=== PATIENT | male | born 1960 | race Caucasian/White ===

== ENCOUNTER 2018-11-21 18:28 | Outpatient (REF) | payer BC, SELFPAY ==
[2018-11-21 22:19] LABS: ALT 38 U/L (12-78); AST 27 U/L (15-37); Alkaline Phosphatase 62 U/L (46-116); Anion Gap 12.1 mmol/L (3-11); BUN 24 mg/dL (7-18); Bilirubin, Total 0.4 mg/dL (0.2-1.0); CO2 23.9 mmol/L (21.0-32.0); CREATININE 1.41 mg/dL (0.70-1.30); Calcium 9.1 mg/dL (8.5-10.1); Chloride 106 mmol/L (98-107); Cholesterol 230 mg/dL (50-200); Estimated GFR 51.45 (mL/min/1.73m2); Glucose 114 mg/dL (70-100); HDL Cholesterol 33 mg/dL (40-60); LDL CHOLESTEROL 120 mg/dL (<100); Magnesium 1.3 mg/dL (1.8-2.4); Potassium 3.6 mmol/L (3.5-5.1); Sodium 142 mmol/L (136-145); Total Protein 7.2 g/dL (6.4-8.2); Triglyceride 469 mg/dL (30-150)
[2018-11-21 22:33] LABS: Uric Acid 5.8 mg/dL (3.5-7.2)
== END 2018-11-21 18:48 ==
LOC: NCHCN 18:28
PROVIDERS: PCP Specialist/Technologist Athletic Trainer; Visit Provider Specialist/Technologist Athletic Trainer
DX: I10 Essential (primary) hypertension (principal); E11.9 Type 2 diabetes mellitus without complications; E78.2 Mixed hyperlipidemia; R94.5 Abnormal results of liver function studies; M10.9 Gout, unspecified
CPT/HCPCS: 80053; 80061; 83721; 83735; 84550

== ENCOUNTER 2018-12-02 04:39 | Inpatient (IN) | payer BC, SELFPAY ==
[2018-12-02] VITALS (22 sets, daily range): BP systolic 105–139; BP diastolic 65–90; PULSE 77–120; RESP 16–18; TEMP 36.6–38.5; O2SAT 92–98
[2018-12-02] MEDS: HYDROmorphone 2 MG/ML VIAL 0.5 MG IVP ×3 (05:25→08:35)
[2018-12-02] MEDS: Lactated Ringers 1,000 ML 1000 ML IV (05:25)
[2018-12-02] MEDS: Ondansetron 4 MG/2 ML VIAL IVP (05:26)
[2018-12-02] MEDS: Normal Saline Flush 10 ML SYR IVP ×4 (05:27→19:57)
[2018-12-02 05:28] LABS: Lactate 1.7 mmol/L (0.6-1.4)
[2018-12-02 05:30] LABS: Abs Immature Grans 0.04 k/cumm (0.0-0.09); Absolute Basophil Count 0.02 k/cumm (0.0-0.2); Absolute Lymphocyte Count 0.45 k/cumm (1.2-3.4); Absolute Monocyte Count 1.28 k/cumm (0.11-0.7); Absolute Neutrophil Count 15.39 k/cumm (1.2-6.7); Basophils % 0.1; Eosinophils % 0.6; HCT 44.6 % (40.0-50.0); HGB 15.4 g/dL (13.5-17.5); Immature Grans % 0.2; Lymphocytes % 2.6; Mean Corp. HGB Concentration 34.5 g/dL (32.0-36.0); Mean Corpuscular Hemoglobin 31.6 pg (27.0-33.0); Mean Corpuscular Volume 91.4 fL (80-95); Mean Platelet Volume 9.7 fL (8.0-11.0); Monocytes % 7.4; Neutrophils % 89.1; Platelet Count 170 x1000/uL (130-400); RBC 4.88 m/cumm (4.50-6.00); RBC Distribution Width 14.3 % (11.8-14.1); White Blood Cell Count 17.27 k/cumm (4.4-10.8)
[2018-12-02 05:31] LABS: Bilirubin Negative (Negative); Blood Negative (Negative); Clarity Clear; Glucose Negative (Negative); Ketones Negative (Negative); Leukocyte Esterase Negative (Negative); Nitrite Negative (Negative); Specific Gravity 1.015 (1.005-1.025); Urobilinogen 0.2 EU/dL (Up TO 0.2); pH 6.5 (5-8)
--- NOTE | 2018-12-02 05:33 | W.ED.GENAD ---
Discharge Plan Disposition Patient Disposition: [facility] INPATIENT Condition: Stable Discharge Details Chief Complaint: Abd Prob Clinical Impression: Abdominal abscess, History of resection of small bowel Reason For Visit: ENTERITIS Admit Date/Time: 12/02/18 10:11 Admit Provider: Reynaldo Christine Attending Provider: Reynaldo Christine Primary Care Provider: Domingo Ngo ED Provider: Yesenia Allen Discharge Data Discharge Date/Time-TO BE ENTERED AT DEPARTURE: 12/02/18 10:55 Medical Decision Making <Peter Carney MD - Last Filed: 12/03/18 00:17> Patient presenting with onset of abdominal pain last night. Now has diffuse tenderness with rebound. He is soft. Point of most tenderness is supraumbilical. Maybe the possibility of a hernia there but there is definitely no firm incarcerated mass. Will place IV and give fluids, pain meds, antiemetics. Will obtain laboratory studies. Will get CT scan of the abdomen pelvis. Laboratory studies significant for an elevated white count 17. Kidney function is on the higher side of his baseline. Creatinine is 1.6. Lactic acid is 1.7. Urinalysis is negative. Dilaudid has helped with his pain. Patient remains hemodynamically stable. CT scan is still not read. I'm a little concerned for free air. I did speak to surgery, Dr. Christine, at 7:45 am to make her aware of patient and that I felt patient had a surgical abdomen. She asked to be called back with the radiology read of the CT. Patient will given another dose of Dilaudid and a second bag of fluid will be hung. Patient will be signed out to Dr. Allen. Lab Data Lab results reviewed: Yes I reviewed the patient's lab results. HPI <Peter Carney MD - Last Filed: 12/03/18 00:17> General Mode of arrival: ambulatory. Date/Time Provider Initiated Documentation: 12/02/18 04:43. Limitations to Documentation: no limitations. Information obtained by: patient and old records reviewed. HPI Narrative: Patient presents to ED with worsening abdominal pain since dinner last night. Patient reports that it started out as sharp, crampy intermittent pain. It is now just severe constant pain that seems to be periumbilical in nature and radiates out especially down into the right lower quadrant. He has no testicular pain or urinary symptoms. He has no back pain. He does have a prior history of incarcerated hernia requiring bowel resection last spring. He denies any nausea/vomiting. He had a bowel movement this morning prior to coming in. He has been hot and cold but does not know whether he had fever or not. He denies chest pain or shortness of breath. Related Data Home Medications Medication Instructions Recorded Confirmed allopurinol 300 mg PO DAILY 07/25/14 12/02/18 aspirin [Children's Aspirin] 81 mg PO DAILY 07/25/14 12/02/18 ibuprofen 800 mg PO TID PRN 07/25/14 12/02/18 lisinopril 20 mg PO DAILY 07/25/14 12/02/18 metoprolol tartrate 50 mg PO BID 07/25/14 12/02/18 rosuvastatin [Crestor] 40 mg PO DAILY 07/25/14 12/02/18 gemfibrozil 600 mg PO BID 09/09/15 12/02/18 chlorthalidone 25 mg PO DAILY tab-cap 10/16/15 12/02/18 acetaminophen [Tylenol] 650 mg PO Q6H PRN PRN #30 tab 02/28/18 12/02/18 Previous Rx's Medication Instructions Recorded acetaminophen [Tylenol] 650 mg PO Q6H PRN PRN #30 tab 02/28/18 Allergies Allergy/AdvReac Type Severity Reaction Status Date / Time No Known Allergies Allergy Unverified 12/02/18 04:46 General Stated Complaint: Abd Prob YEHUDA: 3 Review of Systems <Peter Carney MD - Last Filed: 12/03/18 00:17> Constitutional Denies chills, Denies fever(s), Denies headache(s) and Denies weakness Eyes Denies eye discharge and Denies eye pain ENT Denies headache(s), Reports nasal congestion and Denies neck pain Cardiovascular Denies chest pain, Denies diaphoresis, Denies syncope and Denies dyspnea Respiratory Denies cough and Denies dyspnea Gastrointestinal Reports abdominal pain, Denies diarrhea, Denies nausea and Denies vomiting Genitourinary Denies dysuria, Denies flank pain and Denies testicular pain Musculoskeletal Denies back pain, Denies neck pain and Denies numbness Integumentary/Breasts Denies rash Neurologic Denies syncope, Denies headache(s), Denies focal weakness, Denies numbness and Denies weakness PFSH <Peter Carney MD - Last Filed: 12/03/18 00:17> Medical History Hypercholesterolemia (Acute) Diabetes (Chronic) HTN (hypertension) (Chronic) CAD (coronary artery disease) (Chronic) Gout (Chronic) Surgical History Fx tibia/fibula shaft-op (Inactive) S/P CABG (coronary artery bypass graft) (Inactive) S/P hernia repair (Inactive) incarcerated ventral hernia with small bowel resection (Chronic 02/21/18) Social History Smoking and Tabacco status: Never Exam <Peter Carney MD - Last Filed: 12/03/18 00:17> Const General: cooperative and no acute distress Orientation: alert and oriented x3 HENMT Head: normocephalic and atraumatic Mouth: moist mucous membranes Eyes Sclera: sclerae normal Neck Neck: trachea midline and supple Resp Effort & Inspection: normal respiratory effort Auscultation: clear to auscultation bilaterally Cardio Rate: regular rate Rhythm: regular rhythm Heart Sounds: S1 normal and S2 normal GI Inspection: normal to inspection, no edema, non-distended and scar Palpation: soft, not firm, guarding and tender (diffusely tender witih rebound) Auscultation: normal bowel sounds Male General Exam: Yes normal external exam and No hernia Skin General skin exam: no erythema Rashes: no rashes Neuro General: alert, oriented x3, no focal motor deficits and CN's II-XI intact bilaterally Extrem General: no clubbing, cyanosis or edema Course <Peter Carney MD - Last Filed: 12/03/18 00:17> Vital Signs Temperature 98.4 F 12/02/18 04:42 Pulse 120 H 12/02/18 04:42 Respiratory Rate 16 12/02/18 04:42 Blood Pressure 112/65 12/02/18 04:42 Pulse Oximetry 97 12/02/18 04:42 Temperature 98.4 F 12/02/18 04:42 Temperature Source Skin 12/02/18 04:42 Pulse 120 H 12/02/18 04:42 Respiratory Rate 16 12/02/18 04:42 Respiratory Effort Non-Labored 12/02/18 04:46 Blood Pressure 112/65 12/02/18 04:42 Blood Pressure Position Sitting 12/02/18 04:42 Pulse Oximetry 97 12/02/18 04:42 End Tidal Co2 10 12/02/18 04:42 Pain Level 10 12/02/18 05:25 Lab/Test Results Lab/Test Results: Laboratory Tests Range/Units 12/02/18 12/02/18 12/02/18 04:55 05:20 05:20 WBC (4.4-10.8) k/cumm 17.27 H RBC (4.50-6.00) m/cumm 4.88 Hgb (13.5-17.5) g/dL 15.4 Hct (40.0-50.0) % 44.6 MCV (80-95) fL 91.4 MCH (27.0-33.0) pg 31.6 MCHC (32.0-36.0) g/dL 34.5 RDW (11.8-14.1) % 14.3 H Plt Count (130-400) x1000/uL 170 MPV (8.0-11.0) fL 9.7 Immature Gran % 0.2 Neutrophils % 89.1 Lymphocytes % 2.6 Monocytes % 7.4 Eosinophils % 0.6 Basophils % 0.1 Absolute Neutrophils (1.2-6.7) k/cumm 15.39 H Absolute Lymphocytes (1.2-3.4) k/cumm 0.45 L Absolute Monocytes (0.11-0.7) k/cumm 1.28 H Absolute Eosinophils (0.0-0.7) k/cumm 0.10 Absolute Basophils (0.0-0.2) k/cumm 0.02 Lactate (0.6-1.4) mmol/L 1.7 H Urine Color (Yellow) Yellow Urine Clarity Clear Urine pH (5-8) 6.5 Ur Specific [place] (1.005-1.025) 1.015 Urine Protein (Negative) mg/dL Negative Urine Ketones (Negative) mg/dL Negative Urine Blood (Negative) Negative Urine Nitrite (Negative) Negative Urine Bilirubin (Negative) Negative Urine Urobilinogen (Up TO 0.2) EU/dL 0.2 Ur Leukocyte Esterase (Negative) Negative Urine Glucose (Negative) mg/dL Negative Sign Out <Peter Carney MD - Last Filed: 12/03/18 00:17> Sign Out Data: Sign Out Comment: Signed out to Dr. Allen Last updated by Peter Carney MD at 12/02/18 08:11 Post-Handoff Eval: CT notes 2 areas concerning for abscess and a possible anastomotic leak. Dose of Zosyn ordered. Discussed with surgery seasoning sprayer and they will come to evaluate patient. She is requesting a CT with p.o. contrast for further evaluation. Patient is currently hemodynamically stable, his abdomen is soft and diffusely tender. 1010 --CT w/ PO contrast notes 2 abscesses and possible anastomotic leak but no extravasation of contrast, no new additional findings compared to CT w/ IV. Discussed with Dr. Christine - will admit pt. No plan for OR at this time.
[2018-12-02 05:43] LABS: ALT 30 U/L (12-78); AST 23 U/L (15-37); Albumin 3.8 g/dL (3.4-5.0); Alkaline Phosphatase 56 U/L (46-116); Anion Gap 11.6 mmol/L (3-11); BUN 26 mg/dL (7-18); Bilirubin, Total 0.8 mg/dL (0.2-1.0); CO2 24.4 mmol/L (21.0-32.0); CREATININE 1.58 mg/dL (0.70-1.30); Chloride 102 mmol/L (98-107); Estimated GFR 45.11 (mL/min/1.73m2); Glucose 161 mg/dL (70-100); Lipase 158 U/L (73-393); Potassium 3.5 mmol/L (3.5-5.1); Sodium 138 mmol/L (136-145); Total Protein 7.3 g/dL (6.4-8.2)
[2018-12-02 05:50] LABS: Calcium 8.8 mg/dL (8.5-10.1)
[2018-12-02] MEDS: Omnipaque 350 MG/ML 100 ML BTL IJ (06:33)
--- NOTE | 2018-12-02 06:40 | DI.CT_ITS ---
SYMPTOM/DIAGNOSIS: ACUTE ABD PAIN ABDOMEN AND PELVIC CT: CT scan of the abdomen and pelvis was performed following the uneventful administration of intravenous contrast material. Comparison is made with 02/25/18. Dependent atelectatic changes are seen in the lung bases. There is diffuse decreased attenuation of the liver consistent with hepatic steatosis. No suspicious hepatic mass is seen. The portal, superior mesenteric and splenic veins are patent. The gallbladder is negative. There is no biliary ductal dilatation. The pancreas is unremarkable. The spleen is enlarged measuring 14.4 cm. The adrenal glands show no acute abnormalities. The kidneys show normal enhancement and no evidence of a solid renal mass or obstruction. There is a left pelvic kidney present. The urinary bladder is intact. The reproductive organs are unremarkable. The abdominal aorta is of normal caliber with mild atherosclerosis. No significant abdominal or pelvic adenopathy is seen. There are post surgical changes of an anastomosis seen in the mid abdomen involving the small bowel. In the region of the anastomosis, the bowel wall appears mildly thickened and there is dilatation of the bowel, proximally there is mild bowel dilatation noted. There are a few of foci of air seen to the right of the small bowel anastomosis. This may represent air within the wall or extraluminal air. There is increased attenuation in the mesentery surrounding the inflamed anastomosis. There are also two fluid collections seen in the mesentery, the first superior to the anastomosis. It contains air and fluid and measures 2.2 by 0.8 cm. There is a second fluid collection superior and posterior to the inflamed bowel which measures 1.2 by 2.8 cm. These findings are suspicious for abscesses. The remainder of the bowel is unremarkable. The bones show no acute abnormality. IMPRESSION: 1. Bowel wall thickening and dilatation of the small bowel in the region of the anastomosis suspicious for infection or inflammation. Mild dilatation of the small bowel proximal to the anastomosis suspicious for an ileus. 2. Air and fluid collection in the adjacent mesentery suspicious for two abscesses. 3. Small foci of air seen to the right of the anastomotic small bowel. The findings could be suggestive of an anastomotic leak. 4. Incidental findings of hepatic steatosis, splenomegaly and a left pelvic kidney.
[2018-12-02] MEDS: Lactated Ringers 1,000 ML 150 ML IV (08:04)
--- NOTE | 2018-12-02 08:11 | DI.VRAD_ITS ---
EXAM: CT Abdomen and Pelvis With Contrast EXAM DATE/TIME: 12/02/2018 5:18 AM CLINICAL HISTORY: 58 years old, male; Pain; Abdominal pain; Localized; Lower; Prior surgery; Surgery date: 6+ months; Surgery type: Hernia repair, bowel resection, heart surgery TECHNIQUE: Axial computed tomography images of the abdomen and pelvis with intravenous contrast. All CT scans at this facility use at least one of these dose optimization techniques: automated exposure control; mA and/or kV adjustment per patient size (includes targeted exams where dose is matched to clinical indication); or iterative reconstruction. Coronal and sagittal reformatted images were created and reviewed. CONTRAST: Contrast Material: 100 ml of [id number]; Contrast Route: iv COMPARISON: CT ABD PELVIS WITH CONTRAST 02/25/2018 3:31 PM FINDINGS: Lower thorax: Small hiatus hernia containing fat. ABDOMEN: Liver: Fatty infiltration of the liver. Gallbladder and bile ducts: Normal. No calcified stones. No ductal dilation. Pancreas: Normal. No ductal dilation. Spleen: Stable splenomegaly measuring 15.8 cm in craniocaudad. Adrenals: Normal. No mass. Kidneys and ureters: Left kidney pelvis. No stones or hydronephrosis. Stomach and bowel: There is an enteric anastomosis in the mid pelvis. There is a focally dilated small bowel loop proximal to anastomosis with thickened wall.There are few small bubbles of air along the right lateral aspect of the inflamed loop which may be free or within the wall. There are 2 air and fluid collections in the adjacent mesentery suspicious for abscesses . These measure 2.2 x 0.8 cm and 1.2 x 2.8 cm. there is a short segment region of bowel dilatation proximal to enteric anastomosis which is likely related to ileus. Rest of the small bowel unremarkable. Unremarkable colon. Appendix: No evidence of appendicitis. PELVIS: Bladder: Unremarkable as visualized. Reproductive: Unremarkable as visualized. ABDOMEN and PELVIS: Intraperitoneal space: Bones/joints: No acute fracture. No dislocation. Soft tissues: Ventral hernia repair seen at level of the umbilicus. Vasculature: Atherosclerotic disease. No aneurysm or dissection. Lymph nodes: Normal. No enlarged lymph nodes. IMPRESSION: Diffuse inflammation in the mid small bowel mesentery at the site of enteric anastomosis with 2 new air and fluid containing collection in the mesentery suspicious for abscess use. There also a few bubbles of air along the right lateral aspect of the inflamed bowel loop which likely external to the bowel but could be within the wall. Findings are most consistent with an anastomotic leak although ischemia with localized perforation cannot be fully excluded. No evidence of bowel obstruction. Left pelvic kidney. Stable splenomegaly. Fatty liver. Findings were discussed with Dr. Carney at 8:10 am EST. Dictated and Authenticated by: Jewels Mcneil MD. Ordering:FRANK Green MD
[2018-12-02] MEDS: PIPERACILLIN/TAZO 3.375 GM in Normal Saline 50 ML IVPB ×3 (08:30→19:46)
[2018-12-02] MEDS: Omnipaque 350 MG/ML 50 ML BTL IJ (09:26)
--- NOTE | 2018-12-02 09:26 | HPE_ITS ---
Date of service: 12/02/18 Time of Service: 09:22 Assessment and Plan (1) Enteritis: Current visit: Yes Status: Acute 58 y/o male with a remote history of incarcerated ventral hernia repair with mesh and small bowel resection with anastomosis in January 2018. Findings on CT indicative of a complicated focal enteritis at the site of his anastomosis with bowel wall thickening, fluid, bubbles of air, and possible abscesses. NO extravastion of contrast seen. Discussed findings with patient and daughter at the bedside. Recommended admission for bowel rest (NPO), hydration (IVF), and IV ABX (Zosyn). Consider surgical exploration if he does not improve. Patient reported to me that he takes Metformin. Will place on accuchecks and sliding scale coverage. Continue Metoprolol. Hold other po meds for now. Follow-up labs in am. All questions answered. Patient and daughter agreeable with plans as outlined above. History of Present Illness Chief Complaint: Abdominal pain Narrative: 58 y/o male seen in the ED at [facility] with his daughter at the bedside. Patient notes that he was doing well until he developed sudden, sharp, severe mid-abdominal pains last night after eating supper. He had one similar milder episode a week ago which only lasted about 1 hour. He felt intermittently hot and cold with associated dizziness. He denies nausea, vomiting, diarrhea, melena, hematochezia, dysuria, or hematuria. He had a normal BM yesterday. Pain is better after pain meds. Worse with coughiing or movement. He underwent an incarcerated ventral hernia repair with small bowel resection, anastomosis, and Ventralex mesh repair on 02/21/[address] Quintero. He had a superficial subcutaneous postop seroma/hematoma which was aspirated. He denies any abdominal complaints until last week. Workup in the ED was notable for a WBC ~17k. Lactate - 1.7. Hb - 15.4/44.6. CT abd/pelvis with IV contrast only was obtained. Films reviewed and VRADS CT report noted. There appear to be tiny bubbles of air in or adjacent to the bowel at the site of his anastomosis with a small amount of fluid. No recurrent hernia seen. Repeat CT with oral contrast obtained and films reviewed with radiologist, . Contrast traverses the anastomosis with no extravasation seen. Tiny bubble of air either in the wall or adjacent to the anastomosis. Bowel wall thickened at the anastomosis and mild dilation noted. Two tiny fluid collections, possible abscesses, adjacent. All findings are localized to the site of the anastomosis. The remainder of the bowel/ abdomen are unremarkable. Review of Systems Review of Systems All systems reviewed & are unremarkable except as noted in HPI and below Constitutional Reports chills and Reports fever(s) Cardiovascular Denies chest pain, Denies rapid heart rate and Denies dyspnea on exertion Respiratory Denies cough and Denies dyspnea on exertion Gastrointestinal Reports abdominal pain, Denies melena, Denies hematochezia, Denies constipation, Denies diarrhea, Denies nausea and Denies vomiting Genitourinary Denies hematuria and Denies dysuria PFSH Medical History Hypercholesterolemia (Acute) Diabetes (Chronic) HTN (hypertension) (Chronic) CAD (coronary artery disease) (Chronic) Gout (Chronic) Surgical History Fx tibia/fibula shaft-op (Inactive) S/P CABG (coronary artery bypass graft) (Inactive) S/P hernia repair (Inactive) incarcerated ventral hernia with small bowel resection (Chronic 02/21/18) Social History Smoking and Tabacco status: Never Meds Home Medications Medication Instructions Recorded Confirmed Type allopurinol 300 mg PO DAILY 07/25/14 12/02/18 History aspirin [Children's Aspirin] 81 mg PO DAILY 07/25/14 12/02/18 History ibuprofen 800 mg PO TID PRN 07/25/14 12/02/18 History lisinopril 20 mg PO DAILY 07/25/14 12/02/18 History metoprolol tartrate 50 mg PO BID 07/25/14 12/02/18 History rosuvastatin [Crestor] 40 mg PO DAILY 07/25/14 12/02/18 History gemfibrozil 600 mg PO BID 09/09/15 12/02/18 History chlorthalidone 25 mg PO DAILY tab-cap 10/16/15 12/02/18 History acetaminophen [Tylenol] 650 mg PO Q6H PRN PRN #30 tab 02/28/18 12/02/18 Rx Allergies Allergy/AdvReac Type Severity Reaction Status Date / Time No Known Allergies Allergy Unverified 12/02/18 04:46 Exam Const General: cooperative and no acute distress Nutritional Appearance: overweight Orientation: alert and oriented x3 HENMT Head: normocephalic and atraumatic Eyes Sclera: sclerae normal Resp Effort & Inspection: normal respiratory effort and able to speak in complete sentences Cardio Jugular venous pressure: no JVD Rate: regular rate Rhythm: regular rhythm GI Inspection: non-distended and scar (midline) Palpation: soft, not firm, no guarding, no masses and tender (mild-moderate tenderness diffusely) Auscultation: hypoactive bowel sounds Skin General skin exam: no rashes or lesions noted and no jaundice Neuro General: alert and oriented x3 Speech: speech normal Results Labs : 12/02/18 05:20 12/02/18 05:20 Laboratory Results - last 24 hr 12/02/18 12/02/18 12/02/18 04:55 05:20 05:20 WBC RBC Hgb Hct MCV MCH MCHC RDW Plt Count MPV Immature Gran % Neutrophils % Lymphocytes % Monocytes % Eosinophils % Basophils % Absolute Neutrophils Absolute Lymphocytes Absolute Monocytes Absolute Eosinophils Absolute Basophils Sodium 138 Potassium 3.5 Chloride 102 Carbon Dioxide 24.4 Anion Gap 11.6 H BUN 26 H Creatinine 1.58 H Estimated GFR/1.73 m2 45.11 Glucose 161 H Lactate 1.7 H Calcium 8.8 Total Bilirubin 0.8 AST 23 ALT 30 Alkaline Phosphatase 56 Total Protein 7.3 Albumin 3.8 Lipase 158 Urine Color Yellow Urine Clarity Clear Urine pH 6.5 Ur Specific [place] 1.015 Urine Protein Negative Urine Ketones Negative Urine Blood Negative Urine Nitrite Negative Urine Bilirubin Negative Urine Urobilinogen 0.2 Ur Leukocyte Esterase Negative Urine Glucose Negative 12/02/18 05:20 WBC 17.27 H RBC 4.88 Hgb 15.4 Hct 44.6 MCV 91.4 MCH 31.6 MCHC 34.5 RDW 14.3 H Plt Count 170 MPV 9.7 Immature Gran % 0.2 Neutrophils % 89.1 Lymphocytes % 2.6 Monocytes % 7.4 Eosinophils % 0.6 Basophils % 0.1 Absolute Neutrophils 15.39 H Absolute Lymphocytes 0.45 L Absolute Monocytes 1.28 H Absolute Eosinophils 0.10 Absolute Basophils 0.02 Sodium Potassium Chloride Carbon Dioxide Anion Gap BUN Creatinine Estimated GFR/1.73 m2 Glucose Lactate Calcium Total Bilirubin AST ALT Alkaline Phosphatase Total Protein Albumin Lipase Urine Color Urine Clarity Urine pH Ur Specific [place] Urine Protein Urine Ketones Urine Blood Urine Nitrite Urine Bilirubin Urine Urobilinogen Ur Leukocyte Esterase Urine Glucose Last Vital Signs Temp 37 C 12/02/18 08:01 Pulse 91 H 12/02/18 09:01 Resp 18 12/02/18 08:01 BP 116/86 12/02/18 09:01 Pulse Ox 98 12/02/18 09:01
--- NOTE | 2018-12-02 09:32 | DI.CT_ITS ---
SYMPTOM/DIAGNOSIS: DIFFUSE ABD PAIN, ABD ABSCESSES ABDOMEN AND PELVIC CT: Comparison is made with examination from earlier in the day. CT scan of the abdomen and pelvis was performed following oral contrast. There is again seen a dilated loop of small bowel in the central abdomen at the level of the anastomosis. There is bowel wall thickening and inflammatory changes seen in the surrounding mesentery. The findings are suspicious for an enteritis. The oral contrast is seen proximal and distal to this loop of bowel. No evidence of obstruction is seen. No extravasation of contrast is seen into the abdominal cavity to suggest an active leak. There are again seen two air fluid collections in the mesentery consistent with abscesses. These are unchanged compared to the earlier examination. There is also again seen air to the right of the inflamed bowel in the region of the anastomosis. Differential considerations include intramural air, abscess or possibly free air. These findings are unchanged compared to the CT scan from earlier in the day. IMPRESSION: No evidence of extraluminal contrast to confirm bowel leak or anastomotic leak. Inflamed small bowel around the region of the anastomosis suspicious for enteritis. Stable small abdominal abscesses. The findings were discussed with Dr. Christine on the date of the examination.
[2018-12-02] MEDS: HYDROmorphone 2 MG/ML VIAL 1 MG IVP ×3 (11:00→19:56)
[2018-12-02] MEDS: Pantoprazole 40 MG VIAL IVP (11:17)
[2018-12-02] MEDS: Ketorolac 15 MG/ML VIAL IVP ×2 (11:28→19:56)
[2018-12-02] MEDS: Normal Saline 500 ML IV (14:29)
[2018-12-02] MEDS: Lactated Ringers 1,000 ML 125 ML IV (15:30)
[2018-12-02] MEDS: Acetaminophen 325 MG TAB 650 MG PO (16:48)
[2018-12-02 16:52] LABS: Lactate-non-spesis 0.9 mmol/l (0.6-1.4)
[2018-12-02] MEDS: Metoprolol 50 MG TAB PO (19:44)
[2018-12-03 00:17] VITALS: BP 106/71; PULSE 65; RESP 18; TEMP 37.3; O2SAT 96
[2018-12-03] MEDS: Lactated Ringers 1,000 ML 125 ML IV ×3 (00:19→18:18)
[2018-12-03] MEDS: PIPERACILLIN/TAZO 3.375 GM in Normal Saline 50 ML IVPB ×4 (01:54→19:36)
[2018-12-03 02:50] VITALS: BP 108/70; PULSE 96; RESP 18; TEMP 36.9; O2SAT 95
--- NOTE | 2018-12-03 07:00 | DI.RAD_ITS ---
SYMPTOM/DIAGNOSIS: ABD PAIN FLAT AND UPRIGHT ABDOMEN: Comparison CT scan is 12/02/18. There is residual oral contrast seen in the colon. No evidence of bowel obstruction is seen. No pneumoperitoneum is appreciated. There are degenerative changes seen in the spine. IMPRESSION: No evidence of bowel obstruction.
[2018-12-03 07:13] LABS: Abs Immature Grans 0.05 k/cumm (0.0-0.09); Absolute Basophil Count 0.01 k/cumm (0.0-0.2); Absolute Eosinophil Count 0.25 k/cumm (0.0-0.7); Absolute Lymphocyte Count 0.49 k/cumm (1.2-3.4); Absolute Monocyte Count 0.86 k/cumm (0.11-0.7); Absolute Neutrophil Count 10.79 k/cumm (1.2-6.7); Basophils % 0.1; HCT 42.3 % (40.0-50.0); HGB 14.4 g/dL (13.5-17.5); Immature Grans % 0.4; Lymphocytes % 3.9; Mean Corpuscular Hemoglobin 31.5 pg (27.0-33.0); Mean Corpuscular Volume 92.6 fL (80-95); Mean Platelet Volume 10.1 fL (8.0-11.0); Monocytes % 6.9; Neutrophils % 86.7; Platelet Count 143 x1000/uL (130-400); RBC 4.57 m/cumm (4.50-6.00); RBC Distribution Width 14.2 % (11.8-14.1); White Blood Cell Count 12.45 k/cumm (4.4-10.8)
[2018-12-03 07:40] VITALS: BP 119/73; PULSE 99; RESP 18; TEMP 37.6; O2SAT 96
[2018-12-03 07:41] LABS: Anion Gap 9.8 mmol/L (3-11); BUN 18 mg/dL (7-18); CO2 26.2 mmol/L (21.0-32.0); CREATININE 1.42 mg/dL (0.70-1.30); Calcium 8.6 mg/dL (8.5-10.1); Chloride 102 mmol/L (98-107); Estimated GFR 51.03 (mL/min/1.73m2); Glucose 114 mg/dL (70-100); Potassium 3.4 mmol/L (3.5-5.1); Sodium 138 mmol/L (136-145)
[2018-12-03] MEDS: Acetaminophen 325 MG TAB 650 MG PO ×3 (08:28→23:43)
[2018-12-03] MEDS: Metoprolol 50 MG TAB PO ×2 (08:28→19:36)
[2018-12-03] MEDS: Normal Saline Flush 10 ML SYR IVP ×4 (08:30→18:18)
[2018-12-03] MEDS: Ketorolac 15 MG/ML VIAL IVP ×2 (08:30→14:47)
[2018-12-03] MEDS: Enoxaparin 40 MG/0.4 ML SYR SC (08:30)
--- NOTE | 2018-12-03 08:34 | DI.VRAD_ITS ---
EXAM: XR Abdomen, 2 Views EXAM DATE/TIME: 12/03/2018 7:58 AM CLINICAL HISTORY: 58 years old, male; Pain; Abdominal pain; Generalized; Patient HX: Abdominal pain. TECHNIQUE: Frontal view of the abdomen/pelvis with upright view of the abdomen. COMPARISON: CR ABD FLAT UPRIGHT PA CHEST 09/04/2015 12:11 PM FINDINGS: Gastrointestinal tract: The colon is decompressed and contains contrast. No obstruction. Intraperitoneal space: Normal. No free air. Bones/joints: Unremarkable for age. IMPRESSION: The colon is decompressed and contains contrast. No obstruction. Dictated and Authenticated by: Doug Alonso MD. Ordering:LUCIANA Jacobs MD
--- NOTE | 2018-12-03 09:10 | W.PM.PROGNOT ---
Date of Service Date of service: 12/03/18 Time of Service: 09:10 Assessment and Plan (1) Enteritis: Current visit: Yes Status: Acute 58 y/o male with a remote history of incarcerated ventral hernia repair with mesh and small bowel resection with anastomosis in January 2018. Findings on CT indicative of a complicated focal enteritis at the site of his anastomosis with bowel wall thickening, fluid, bubbles of air, and possible abscesses. NO extravastion of contrast seen. Follow-up AXR this am shows contrast in colon with no free air or sign of obstruction. Spiked temp 38.5 yesterday afternoon. Afebrile overnight. Lactate normalized. WBC improved. Continue bowel rest (NPO), hydration (IVF), and IV ABX (Zosyn). Replace K+. Follow-up labs in am. Subjective Interval history since last seen: Patient feels better this am. Abdominal pain is improving. (+) flatus. (+) BM x 2. Denies nausea or vomiting. Had temp up to 38.5 yesterday afternoon. Afebrile overnight. WBC improved to ~12k. K+ - 3.4. AXR shows contrast in colon, no free air, and no sign of obstruction. Exam Const General: cooperative and no acute distress Nutritional Appearance: overweight Orientation: alert and oriented x3 [facility] Head: normocephalic and atraumatic Eyes Sclera: sclerae normal Resp Effort & Inspection: normal respiratory effort and able to speak in complete sentences Cardio Jugular venous pressure: no JVD Rate: regular rate Rhythm: regular rhythm GI Inspection: non-distended and scar Palpation: soft, not firm, no guarding, no masses, not rigid and tender (mild-moderate tenderness diffusely, improved from exam on 12/02/18) Auscultation: normal bowel sounds (more active today) Skin General skin exam: no rashes or lesions noted and no jaundice Neuro General: alert and oriented x3 Speech: speech normal Objective Objective Clinical Data: Abnormal lab results 12/03/18 12/03/18 Range/Units 06:51 06:51 WBC 12.45 H (4.4-10.8) k/cumm RDW 14.2 H (11.8-14.1) % Absolute Neutrophils 10.79 H (1.2-6.7) k/cumm Absolute Lymphocytes 0.49 L (1.2-3.4) k/cumm Absolute Monocytes 0.86 H (0.11-0.7) k/cumm Potassium 3.4 L (3.5-5.1) mmol/L Creatinine 1.42 H (0.70-1.30) mg/dL Glucose 114 H (70-100) mg/dL Vital Signs Temperature 36.9 C 12/03/18 02:50 Temperature Source Tympanic 12/03/18 02:50 Pulse 96 H 12/03/18 02:50 Pulse Rhythm Regular 12/02/18 19:25 Respiratory Rate 18 12/03/18 02:50 Respiratory Effort Non-Labored 12/02/18 19:25 Respiratory Depth Normal 12/02/18 19:25 Respiratory Pattern Normal 12/02/18 19:25 Blood Pressure 108/70 12/03/18 02:50 Blood Pressure Mean 91 12/02/18 09:01 Blood Pressure Position Sitting 12/02/18 04:42 Pulse Oximetry 95 12/03/18 02:50 Oxygen Delivery Method Room Air 12/03/18 02:50 Oxygen Flow Rate 0 12/03/18 02:50 End Tidal Co2 10 12/02/18 04:42 Pain Level 3 12/03/18 08:30 Comment 12/03/18 02:50 Intake & Output 12/02/18 12/02/18 12/03/18 11:59 23:59 11:59 Intake Total 1000 / 2896.673 1896.673 / 2896.673 714.584 / 714.584 Output Total 900 / 1750 850 / 1750 Balance 100 / 1874.247 0822.673 / 1146.673 714.584 / 714.584 Weight 84.368 kg Intake: IV 1000 / 2716.673 1716.673 / 2716.673 714.584 / 714.584 Oral 180 / 180 Output: Urine 900 / 1750 850 / 1750 Other: Urine Color Yellow Yellow Yellow Urine Appearance Clear Clear Clear Urine Odor Normal Normal Normal Voiding Methods Toilet Toilet Toilet Laboratory Results WBC 12.45 k/cumm (4.4-10.8) H 12/03/18 06:51 RBC 4.57 m/cumm (4.50-6.00) 12/03/18 06:51 Hgb 14.4 g/dL (13.5-17.5) 12/03/18 06:51 Hct 42.3 % (40.0-50.0) 12/03/18 06:51 MCV 92.6 fL (80-95) 12/03/18 06:51 MCH 31.5 pg (27.0-33.0) 12/03/18 06:51 MCHC 34.0 g/dL (32.0-36.0) 12/03/18 06:51 RDW 14.2 % (11.8-14.1) H 12/03/18 06:51 Plt Count 143 x1000/uL (130-400) 12/03/18 06:51 MPV 10.1 fL (8.0-11.0) 12/03/18 06:51 Immature Gran % 0.4 12/03/18 06:51 Neutrophils % 86.7 12/03/18 06:51 Lymphocytes % 3.9 12/03/18 06:51 Monocytes % 6.9 12/03/18 06:51 Eosinophils % 2.0 12/03/18 06:51 Basophils % 0.1 12/03/18 06:51 Absolute Neutrophils 10.79 k/cumm (1.2-6.7) H 12/03/18 06:51 Absolute Lymphocytes 0.49 k/cumm (1.2-3.4) L 12/03/18 06:51 Absolute Monocytes 0.86 k/cumm (0.11-0.7) H 12/03/18 06:51 Absolute Eosinophils 0.25 k/cumm (0.0-0.7) 12/03/18 06:51 Absolute Basophils 0.01 k/cumm (0.0-0.2) 12/03/18 06:51 Sodium 138 mmol/L (136-145) 12/03/18 06:51 Potassium 3.4 mmol/L (3.5-5.1) L 12/03/18 06:51 Chloride 102 mmol/L (98-107) 12/03/18 06:51 Carbon Dioxide 26.2 mmol/L (21.0-32.0) 12/03/18 06:51 Anion Gap 9.8 mmol/L (3-11) 12/03/18 06:51 BUN 18 mg/dL (7-18) D 12/03/18 06:51 Creatinine 1.42 mg/dL (0.70-1.30) H 12/03/18 06:51 Estimated GFR/1.73 m2 51.03 (mL/min/1.73m2) 12/03/18 06:51 Glucose 114 mg/dL (70-100) H 12/03/18 06:51 Lactate 0.9 mmol/l (0.6-1.4) 12/02/18 16:45 Calcium 8.6 mg/dL (8.5-10.1) 12/03/18 06:51 Total Bilirubin 0.8 mg/dL (0.2-1.0) 12/02/18 05:20 AST 23 U/L (15-37) 12/02/18 05:20 ALT 30 U/L (12-78) 12/02/18 05:20 Alkaline Phosphatase 56 U/L (46-116) 12/02/18 05:20 Total Protein 7.3 g/dL (6.4-8.2) 12/02/18 05:20 Albumin 3.8 g/dL (3.4-5.0) 12/02/18 05:20 Lipase 158 U/L (73-393) 12/02/18 05:20 Urine Color Yellow (Yellow) 12/02/18 04:55 Urine Clarity Clear 12/02/18 04:55 Urine pH 6.5 (5-8) 12/02/18 04:55 Ur Specific [place] 1.015 (1.005-1.025) 12/02/18 04:55 Urine Protein Negative mg/dL (Negative) 12/02/18 04:55 Urine Ketones Negative mg/dL (Negative) 12/02/18 04:55 Urine Blood Negative (Negative) 12/02/18 04:55 Urine Nitrite Negative (Negative) 12/02/18 04:55 Urine Bilirubin Negative (Negative) 12/02/18 04:55 Urine Urobilinogen 0.2 EU/dL (Up TO 0.2) 12/02/18 04:55 Ur Leukocyte Esterase Negative (Negative) 12/02/18 04:55 Urine Glucose Negative mg/dL (Negative) 12/02/18 04:55 Objective Narrative Objective Narrative: Patient Name: LOLA KEITA #: [id number]: MS Ordering Provider: : ADM IN Primary Care Provider: Domingo Ngo Date of Exam: 12/03/18Sex: M : 9Age: 58 Exam(s) EXAM: XR Abdomen, 2 Views EXAM DATE/TIME: 12/03/2018 7:58 AM CLINICAL HISTORY: 58 years old, male; Pain; Abdominal pain; Generalized; Patient HX: Abdominal pain. TECHNIQUE: Frontal view of the abdomen/pelvis with upright view of the abdomen. COMPARISON: CR ABD FLAT UPRIGHT PA CHEST 09/04/2015 12:11 PM FINDINGS: Gastrointestinal tract: The colon is decompressed and contains contrast. No obstruction. Intraperitoneal space: Normal. No free air. Bones/joints: Unremarkable for age. IMPRESSION: The colon is decompressed and contains contrast. No obstruction. Dictated and Authenticated by: Doug Alonso MD. Ordering:LUCIANA Jacobs MD Ordered By: CC: Dictated By: Reports vrad 12/03/18 0758 12/03/18 0834 Transcribed By: Lizzy Urrutia This is privileged, confidential information intended only for the provider named. Any use or distribution by any person other than this provider is strictly prohibited. If you receive this report in error, please notify us immediately at [phone] and return the original report to us at the address above. Thank-you.
--- NOTE | 2018-12-03 09:16 | PGE_ITS ---
Date of Service Date of service: 12/03/18 Time of Service: 09:10 Assessment and Plan (1) Enteritis: Current visit: Yes Status: Acute 58 y/o male with a remote history of incarcerated ventral hernia repair with mesh and small bowel resection with anastomosis in January 2018. Findings on CT indicative of a complicated focal enteritis at the site of his anastomosis with bowel wall thickening, fluid, bubbles of air, and possible abscesses. NO extravastion of contrast seen. Follow-up AXR this am shows contrast in colon with no free air or sign of obstruction. Spiked temp 38.5 yesterday afternoon. Afebrile overnight. Lactate normalized. WBC improved. Continue bowel rest (NPO), hydration (IVF), and IV ABX (Zosyn). Replace K+. Follow-up labs in am. Subjective Interval history since last seen: Patient feels better this am. Abdominal pain is improving. (+) flatus. (+) BM x 2. Denies nausea or vomiting. Had temp up to 38.5 yesterday afternoon. Afebrile overnight. WBC improved to ~12k. K+ - 3.4. AXR shows contrast in colon, no free air, and no sign of obstruction. Exam Const General: cooperative and no acute distress Nutritional Appearance: overweight Orientation: alert and oriented x3 [facility] Head: normocephalic and atraumatic Eyes Sclera: sclerae normal Resp Effort & Inspection: normal respiratory effort and able to speak in complete sentences Cardio Jugular venous pressure: no JVD Rate: regular rate Rhythm: regular rhythm GI Inspection: non-distended and scar Palpation: soft, not firm, no guarding, no masses, not rigid and tender (mild- moderate tenderness diffusely, improved from exam on 12/02/18) Auscultation: normal bowel sounds (more active today) Skin General skin exam: no rashes or lesions noted and no jaundice Neuro General: alert and oriented x3 Speech: speech normal Objective Objective Clinical Data: Abnormal lab results 12/03/18 12/03/18 Range/Units 06:51 06:51 WBC 12.45 H (4.4-10.8) k/cumm RDW 14.2 H (11.8-14.1) % Absolute Neutrophils 10.79 H (1.2-6.7) k/cumm Absolute Lymphocytes 0.49 L (1.2-3.4) k/cumm Absolute Monocytes 0.86 H (0.11-0.7) k/cumm Potassium 3.4 L (3.5-5.1) mmol/L Creatinine 1.42 H (0.70-1.30) mg/dL Glucose 114 H (70-100) mg/dL Vital Signs Temperature 36.9 C 12/03/18 02:50 Temperature Source Tympanic 12/03/18 02:50 Pulse 96 H 12/03/18 02:50 Pulse Rhythm Regular 12/02/18 19:25 Respiratory Rate 18 12/03/18 02:50 Respiratory Effort Non-Labored 12/02/18 19:25 Respiratory Depth Normal 12/02/18 19:25 Respiratory Pattern Normal 12/02/18 19:25 Blood Pressure 108/70 12/03/18 02:50 Blood Pressure Mean 91 12/02/18 09:01 Blood Pressure Position Sitting 12/02/18 04:42 Pulse Oximetry 95 12/03/18 02:50 Oxygen Delivery Method Room Air 12/03/18 02:50 Oxygen Flow Rate 0 12/03/18 02:50 End Tidal Co2 10 12/02/18 04:42 Pain Level 3 12/03/18 08:30 Comment 12/03/18 02:50 Intake & Output 12/02/18 12/02/18 12/03/18 11:59 23:59 11:59 Intake Total 1000 / 2896.673 1896.673 / 2896.673 714.584 / 714.584 Output Total 900 / 1750 850 / 1750 Balance 100 / 4678.992 5040.673 / 1146.673 714.584 / 714.584 Weight 84.368 kg Intake: IV 1000 / 2716.673 1716.673 / 2716.673 714.584 / 714.584 Oral 180 / 180 Output: Urine 900 / 1750 850 / 1750 Other: Urine Color Yellow Yellow Yellow Urine Appearance Clear Clear Clear Urine Odor Normal Normal Normal Voiding Methods Toilet Toilet Toilet Laboratory Results WBC 12.45 k/cumm (4.4-10.8) H 12/03/18 06:51 RBC 4.57 m/cumm (4.50-6.00) 12/03/18 06:51 Hgb 14.4 g/dL (13.5-17.5) 12/03/18 06:51 Hct 42.3 % (40.0-50.0) 12/03/18 06:51 MCV 92.6 fL (80-95) 12/03/18 06:51 MCH 31.5 pg (27.0-33.0) 12/03/18 06:51 MCHC 34.0 g/dL (32.0-36.0) 12/03/18 06:51 RDW 14.2 % (11.8-14.1) H 12/03/18 06:51 Plt Count 143 x1000/uL (130-400) 12/03/18 06:51 MPV 10.1 fL (8.0-11.0) 12/03/18 06:51 Immature Gran % 0.4 12/03/18 06:51 Neutrophils % 86.7 12/03/18 06:51 Lymphocytes % 3.9 12/03/18 06:51 Monocytes % 6.9 12/03/18 06:51 Eosinophils % 2.0 12/03/18 06:51 Basophils % 0.1 12/03/18 06:51 Absolute Neutrophils 10.79 k/cumm (1.2-6.7) H 12/03/18 06:51 Absolute Lymphocytes 0.49 k/cumm (1.2-3.4) L 12/03/18 06:51 Absolute Monocytes 0.86 k/cumm (0.11-0.7) H 12/03/18 06:51 Absolute Eosinophils 0.25 k/cumm (0.0-0.7) 12/03/18 06:51 Absolute Basophils 0.01 k/cumm (0.0-0.2) 12/03/18 06:51 Sodium 138 mmol/L (136-145) 12/03/18 06:51 Potassium 3.4 mmol/L (3.5-5.1) L 12/03/18 06:51 Chloride 102 mmol/L (98-107) 12/03/18 06:51 Carbon Dioxide 26.2 mmol/L (21.0-32.0) 12/03/18 06:51 Anion Gap 9.8 mmol/L (3-11) 12/03/18 06:51 BUN 18 mg/dL (7-18) D 12/03/18 06:51 Creatinine 1.42 mg/dL (0.70-1.30) H 12/03/18 06:51 Estimated GFR/1.73 m2 51.03 (mL/min/1.73m2) 12/03/18 06:51 Glucose 114 mg/dL (70-100) H 12/03/18 06:51 Lactate 0.9 mmol/l (0.6-1.4) 12/02/18 16:45 Calcium 8.6 mg/dL (8.5-10.1) 12/03/18 06:51 Total Bilirubin 0.8 mg/dL (0.2-1.0) 12/02/18 05:20 AST 23 U/L (15-37) 12/02/18 05:20 ALT 30 U/L (12-78) 12/02/18 05:20 Alkaline Phosphatase 56 U/L (46-116) 12/02/18 05:20 Total Protein 7.3 g/dL (6.4-8.2) 12/02/18 05:20 Albumin 3.8 g/dL (3.4-5.0) 12/02/18 05:20 Lipase 158 U/L (73-393) 12/02/18 05:20 Urine Color Yellow (Yellow) 12/02/18 04:55 Urine Clarity Clear 12/02/18 04:55 Urine pH 6.5 (5-8) 12/02/18 04:55 Ur Specific [place] 1.015 (1.005-1.025) 12/02/18 04:55 Urine Protein Negative mg/dL (Negative) 12/02/18 04:55 Urine Ketones Negative mg/dL (Negative) 12/02/18 04:55 Urine Blood Negative (Negative) 12/02/18 04:55 Urine Nitrite Negative (Negative) 12/02/18 04:55 Urine Bilirubin Negative (Negative) 12/02/18 04:55 Urine Urobilinogen 0.2 EU/dL (Up TO 0.2) 12/02/18 04:55 Ur Leukocyte Esterase Negative (Negative) 12/02/18 04:55 Urine Glucose Negative mg/dL (Negative) 12/02/18 04:55 Objective Narrative Objective Narrative: Patient Name: LOLA KEITA #: [id number]: MS Ordering Provider: : ADM IN Primary Care Provider: Domingo Ngo Date of Exam: 12/03/18Sex: M : 9Age: 58 Exam(s) EXAM: XR Abdomen, 2 Views EXAM DATE/TIME: 12/03/2018 7:58 AM CLINICAL HISTORY: 58 years old, male; Pain; Abdominal pain; Generalized; Patient HX: Abdominal pain. TECHNIQUE: Frontal view of the abdomen/pelvis with upright view of the abdomen. COMPARISON: CR ABD FLAT UPRIGHT PA CHEST 09/04/2015 12:11 PM FINDINGS: Gastrointestinal tract: The colon is decompressed and contains contrast. No obstruction. Intraperitoneal space: Normal. No free air. Bones/joints: Unremarkable for age. IMPRESSION: The colon is decompressed and contains contrast. No obstruction. Dictated and Authenticated by: Doug Alonso MD. Ordering:LUCIANA Jacobs MD Ordered By: CC: Dictated By: Reports vrad 12/03/18 0758 12/03/18 0834 Transcribed By: Lizzy Urrutia This is privileged, confidential information intended only for the provider named. Any use or distribution by any person other than this provider is strictly prohibited. If you receive this report in error, please notify us immediately at [phone] and return the original report to us at the address above. Thank-you.
[2018-12-03] MEDS: Pantoprazole 40 MG VIAL IVP (10:10)
[2018-12-03] MEDS: POTASSIUM CHLORIDE 20 MEQ/100 ML BAG 50 MEQ IVPB ×2 (10:10→11:42)
[2018-12-03 11:40] VITALS: BP 107/73; PULSE 73; RESP 16; TEMP 36.4; O2SAT 95
--- NOTE | 2018-12-03 11:46 | PDOC.CMIN ---
Care Management Initial Assess REASON FOR HOSPITALIZATION:: Enteritis PAST MEDICAL HISTORY/PAST SURGICAL HISTORY:: CAD, HTN, Hyperlipidemia, GERD, Ventral hernias x2, Chronic renal insufficiency, CABD, Hernia repair, Incarcerated ventral hernia with SBO (02/22/18) PREVIOUS FUNCTIONAL STATUS/SOCIAL/FAMILY SUPPORTS:: Jas resides with his Noreen in [place]. He is independent at baseline, works for a [employer]; [employer] out of [place], [place] and is independent with his own ADL's. CURRENT FUNCTIONAL STATUS:: Jas was walking independently around his room, he reviewed his visit from a year ago and shared he was feeling hungry, though remains NPO with ice chips at this time. He was pleasant in interaction and jokingly asked RN: Nuris if she had brought him his pizza. ADVANCE DIRECTIVES:: None on file Has patient been provided with information about the portal?: Yes Did the patient sign up for the portal?: No CODE STATUS:: Full Code INSURANCE COVERAGE / FINANCIAL ISSUES:: BC/BS CURRENT HOME/COMMUNITY SERVICES/EQUIPMENT:: No current services or equipment. PRIMARY CARE PHYSICIAN:: Domingo Ngo POTENTIAL DISCHARGE NEEDS:: Follow up appointments. PATIENT/FAMILY EDUCATION NEEDS:: Review discharge instructions, discuss Ask Me Three ANTICIPATED BARRIERS TO DISCHARGE:: None identified. TRANSPORTATION:: Via private vehicle with Noreen PLAN:: Jas will return home with no additional services anticipated at this time.He will follow up with Surgical Services and his PCP as well as his plan of care as prescribed. He will transport via private vehicle with his , Noreen.
[2018-12-03] MEDS: Normal Saline 500 ML 30 ML IV (14:47)
[2018-12-03 16:40] VITALS: BP 122/80; PULSE 73; RESP 18; TEMP 37.2; O2SAT 96
[2018-12-03] MEDS: HYDROmorphone 2 MG/ML VIAL 1 MG IVP (18:17)
[2018-12-03 20:09] VITALS: BP 107/66; PULSE 71; RESP 18; TEMP 37.4; O2SAT 96
[2018-12-04] MEDS: PIPERACILLIN/TAZO 3.375 GM in Normal Saline 50 ML IVPB ×4 (01:27→19:43)
[2018-12-04 04:00] VITALS: BP 123/81; PULSE 64; RESP 18; TEMP 36.7; O2SAT 97
[2018-12-04] MEDS: Lactated Ringers 1,000 ML 125 ML IV (04:57)
[2018-12-04 07:30] VITALS: BP 143/87; PULSE 67; RESP 19; TEMP 36.5; O2SAT 99
[2018-12-04] MEDS: Ketorolac 15 MG/ML VIAL IVP ×2 (07:55→14:01)
[2018-12-04] MEDS: Acetaminophen 325 MG TAB 650 MG PO ×2 (07:56→14:00)
[2018-12-04] MEDS: Normal Saline Flush 10 ML SYR IVP ×4 (07:57→17:08)
[2018-12-04] MEDS: Metoprolol 50 MG TAB PO ×2 (07:57→19:42)
[2018-12-04] MEDS: Enoxaparin 40 MG/0.4 ML SYR SC (07:57)
[2018-12-04 09:38] LABS: Abs Immature Grans 0.02 k/cumm (0.0-0.09); Absolute Basophil Count 0.01 k/cumm (0.0-0.2); Absolute Eosinophil Count 0.37 k/cumm (0.0-0.7); Absolute Lymphocyte Count 0.57 k/cumm (1.2-3.4); Absolute Monocyte Count 0.58 k/cumm (0.11-0.7); Absolute Neutrophil Count 6.51 k/cumm (1.2-6.7); Basophils % 0.1; Eosinophils % 4.6; HCT 37.3 % (40.0-50.0); HGB 12.6 g/dL (13.5-17.5); Immature Grans % 0.2; Lymphocytes % 7.1; Mean Corp. HGB Concentration 33.8 g/dL (32.0-36.0); Mean Corpuscular Hemoglobin 31.5 pg (27.0-33.0); Mean Corpuscular Volume 93.3 fL (80-95); Monocytes % 7.2; Neutrophils % 80.8; Platelet Count 155 x1000/uL (130-400); RBC Distribution Width 13.9 % (11.8-14.1); White Blood Cell Count 8.06 k/cumm (4.4-10.8)
[2018-12-04 09:45] LABS: Anion Gap 7.4 mmol/L (3-11); BUN 20 mg/dL (7-18); CO2 28.6 mmol/L (21.0-32.0); CREATININE 1.48 mg/dL (0.70-1.30); Calcium 8.8 mg/dL (8.5-10.1); Chloride 103 mmol/L (98-107); Estimated GFR 48.65 (mL/min/1.73m2); Glucose 90 mg/dL (70-100); Magnesium 1.7 mg/dL (1.8-2.4); Potassium 3.6 mmol/L (3.5-5.1); Sodium 139 mmol/L (136-145)
[2018-12-04] MEDS: Pantoprazole 40 MG VIAL IVP (10:17)
--- NOTE | 2018-12-04 10:36 | PGE_ITS ---
Date of Service Date of service: 12/04/18 Time of Service: 10:35 Assessment and Plan (1) Enteritis: Current visit: Yes Status: Acute 58 y/o male with a remote history of incarcerated ventral hernia repair with mesh and small bowel resection with anastomosis in January 2018. Findings on CT indicative of a complicated focal enteritis at the site of his anastomosis with bowel wall thickening, fluid, bubbles of air, and possible abscesses. NO extravastion of contrast seen. Abdominal pain continues to improve. Afebrile yesterday and today. WBC normalized. Will start on clear liquids today. Monitor CBC. Continue Zosyn. Subjective Interval history since last seen: Patient notes some nausea and 1 small emesis this am. (+) flatus. Denies nausea or vomiting at this time. Had loose BM overnight. Patient notes abdominal pain continues to improve. WBC normalized. Exam Const General: cooperative and no acute distress Orientation: alert and oriented x3 [facility] Head: normocephalic and atraumatic Eyes Sclera: sclerae normal Resp Effort & Inspection: normal respiratory effort and able to speak in complete sentences Cardio Jugular venous pressure: no JVD GI Inspection: non-distended Palpation: soft, no guarding, no masses, not rigid and tender (mildly tender diffusely - improving) Auscultation: normal bowel sounds Skin General skin exam: no rashes or lesions noted and no jaundice Neuro General: alert and oriented x3 Speech: speech normal Objective Objective Clinical Data: Abnormal lab results 12/04/18 12/04/18 Range/Units 09:27 09:27 RBC 4.00 L (4.50-6.00) m/cumm Hgb 12.6 L (13.5-17.5) g/dL Hct 37.3 L (40.0-50.0) % Absolute Lymphocytes 0.57 L (1.2-3.4) k/cumm BUN 20 H (7-18) mg/dL Creatinine 1.48 H (0.70-1.30) mg/dL Magnesium 1.7 L (1.8-2.4) mg/dL Vital Signs Temperature 36.5 C 12/04/18 07:30 Temperature Source Tympanic 12/04/18 07:30 Pulse 67 12/04/18 07:30 Pulse Rhythm Regular 12/04/18 07:20 Respiratory Rate 19 12/04/18 07:30 Respiratory Effort Non-Labored 12/04/18 07:20 Respiratory Depth Normal 12/04/18 07:20 Respiratory Pattern Normal 12/04/18 07:20 Blood Pressure 143/87 H 12/04/18 07:30 Blood Pressure Mean 91 12/02/18 09:01 Blood Pressure Position Sitting 12/02/18 04:42 Pulse Oximetry 99 12/04/18 07:30 Oxygen Delivery Method Room Air 12/04/18 07:30 Oxygen Flow Rate 0 12/04/18 07:30 End Tidal Co2 10 12/02/18 04:42 Pain Level 3 12/04/18 08:56 Comment 12/04/18 04:00 Intake & Output 12/03/18 12/03/18 12/04/18 11:59 23:59 12:59 Intake Total 1703.334 / 3065.834 1362.5 / 3065.834 881.250 / 881.250 Balance 1703.334 / 3065.834 1362.5 / 3065.834 881.250 / 881.250 Intake: IV 1703.334 / 3065.834 1362.5 / 3065.834 881.250 / 881.250 Other: Urine Color Yellow Urine Appearance Clear Urine Odor Normal Comment Patient voiding independently in toilet. Voiding Methods Toilet Laboratory Results WBC 8.06 k/cumm (4.4-10.8) D 12/04/18 09:27 RBC 4.00 m/cumm (4.50-6.00) L 12/04/18 09:27 Hgb 12.6 g/dL (13.5-17.5) L 12/04/18 09:27 Hct 37.3 % (40.0-50.0) L 12/04/18 09:27 MCV 93.3 fL (80-95) 12/04/18 09:27 MCH 31.5 pg (27.0-33.0) 12/04/18 09:27 MCHC 33.8 g/dL (32.0-36.0) 12/04/18 09:27 RDW 13.9 % (11.8-14.1) 12/04/18 09:27 Plt Count 155 x1000/uL (130-400) 12/04/18 09:27 MPV 10.0 fL (8.0-11.0) 12/04/18 09:27 Immature Gran % 0.2 12/04/18 09:27 Neutrophils % 80.8 12/04/18 09:27 Lymphocytes % 7.1 12/04/18 09:27 Monocytes % 7.2 12/04/18 09:27 Eosinophils % 4.6 12/04/18 09:27 Basophils % 0.1 12/04/18 09:27 Absolute Neutrophils 6.51 k/cumm (1.2-6.7) 12/04/18 09:27 Absolute Lymphocytes 0.57 k/cumm (1.2-3.4) L 12/04/18 09:27 Absolute Monocytes 0.58 k/cumm (0.11-0.7) 12/04/18 09:27 Absolute Eosinophils 0.37 k/cumm (0.0-0.7) 12/04/18 09:27 Absolute Basophils 0.01 k/cumm (0.0-0.2) 12/04/18 09:27 Sodium 139 mmol/L (136-145) 12/04/18 09:27 Potassium 3.6 mmol/L (3.5-5.1) 12/04/18 09:27 Chloride 103 mmol/L (98-107) 12/04/18 09:27 Carbon Dioxide 28.6 mmol/L (21.0-32.0) 12/04/18 09:27 Anion Gap 7.4 mmol/L (3-11) 12/04/18 09:27 BUN 20 mg/dL (7-18) H 12/04/18 09:27 Creatinine 1.48 mg/dL (0.70-1.30) H 12/04/18 09:27 Estimated GFR/1.73 m2 48.65 (mL/min/1.73m2) 12/04/18 09:27 Glucose 90 mg/dL (70-100) 12/04/18 09:27 Lactate 0.9 mmol/l (0.6-1.4) 12/02/18 16:45 Calcium 8.8 mg/dL (8.5-10.1) 12/04/18 09:27 Magnesium 1.7 mg/dL (1.8-2.4) L 12/04/18 09:27 Total Bilirubin 0.8 mg/dL (0.2-1.0) 12/02/18 05:20 AST 23 U/L (15-37) 12/02/18 05:20 ALT 30 U/L (12-78) 12/02/18 05:20 Alkaline Phosphatase 56 U/L (46-116) 12/02/18 05:20 Total Protein 7.3 g/dL (6.4-8.2) 12/02/18 05:20 Albumin 3.8 g/dL (3.4-5.0) 12/02/18 05:20 Lipase 158 U/L (73-393) 12/02/18 05:20 Urine Color Yellow (Yellow) 12/02/18 04:55 Urine Clarity Clear 12/02/18 04:55 Urine pH 6.5 (5-8) 12/02/18 04:55 Ur Specific [place] 1.015 (1.005-1.025) 12/02/18 04:55 Urine Protein Negative mg/dL (Negative) 12/02/18 04:55 Urine Ketones Negative mg/dL (Negative) 12/02/18 04:55 Urine Blood Negative (Negative) 12/02/18 04:55 Urine Nitrite Negative (Negative) 12/02/18 04:55 Urine Bilirubin Negative (Negative) 12/02/18 04:55 Urine Urobilinogen 0.2 EU/dL (Up TO 0.2) 12/02/18 04:55 Ur Leukocyte Esterase Negative (Negative) 12/02/18 04:55 Urine Glucose Negative mg/dL (Negative) 12/02/18 04:55
[2018-12-04 11:20] VITALS: BP 127/81; PULSE 67; RESP 19; TEMP 36.5; O2SAT 99
[2018-12-04] MEDS: Normal Saline 500 ML 30 ML IV (14:00)
[2018-12-04] MEDS: Lactated Ringers 1,000 ML 100 ML IV (14:00)
[2018-12-04 16:10] VITALS: BP 124/79; PULSE 51; RESP 14; TEMP 37.2; O2SAT 96
[2018-12-04] MEDS: HYDROmorphone 2 MG/ML VIAL 1 MG IVP (17:08)
--- NOTE | 2018-12-04 18:17 | PDOC.CMPRO ---
Care Management Progress Note S/O: Jas was lying in bed, with regular lounge clothes on, a visitor at his bedside. He shared no concerns at this time and only requested support with providing clinical information to [facility] for Hospitalization coverage benefits. Jas will provide contact information tomorrow after speaking with his . His diet was advanced to clears today and he continues to be closely monitored for pain. CM will continue to follow. A: 58 year old male admitted to [facility] 12/02/18 for Entertitis P: Jas will return home with no additional services anticipated at this time. He will follow up with Surgical Services and his PCP as well as his plan of care as prescribed. He will transport via private vehicle with his , Noreen.
--- NOTE | 2018-12-04 18:26 | CMPROGNOTE_ITS ---
Care Management Progress Note S/O: Jas was lying in bed, with regular lounge clothes on, a visitor at his bedside. He shared no concerns at this time and only requested support with providing clinical information to [facility] for Hospitalization coverage benefits. Jas will provide contact information tomorrow after speaking with his . His diet was advanced to clears today and he continues to be closely monitored for pain. CM will continue to follow. A: 58 year old male admitted to [facility] 12/02/18 for Entertitis P: Jas will return home with no additional services anticipated at this time. He will follow up with Surgical Services and his PCP as well as his plan of care as prescribed. He will transport via private vehicle with his , Noreen.
[2018-12-04 20:05] VITALS: BP 121/75; PULSE 52; RESP 13; TEMP 37.2; O2SAT 98
[2018-12-04 23:44] VITALS: BP 121/76; PULSE 63; RESP 18; TEMP 37.5; O2SAT 99
[2018-12-05] MEDS: PIPERACILLIN/TAZO 3.375 GM in Normal Saline 50 ML IVPB ×3 (01:23→14:01)
[2018-12-05] MEDS: Lactated Ringers 1,000 ML 100 ML IV (03:43)
[2018-12-05 04:13] VITALS: BP 125/76; PULSE 62; RESP 16; TEMP 36.6; O2SAT 96
[2018-12-05 07:19] LABS: Abs Immature Grans 0.01 k/cumm (0.0-0.09); Absolute Basophil Count 0.01 k/cumm (0.0-0.2); Absolute Eosinophil Count 0.39 k/cumm (0.0-0.7); Absolute Monocyte Count 0.44 k/cumm (0.11-0.7); Absolute Neutrophil Count 4.77 k/cumm (1.2-6.7); Basophils % 0.2; Eosinophils % 6.4; HCT 36.3 % (40.0-50.0); HGB 12.2 g/dL (13.5-17.5); Immature Grans % 0.2; Lymphocytes % 8.2; Mean Corp. HGB Concentration 33.6 g/dL (32.0-36.0); Mean Corpuscular Volume 92.1 fL (80-95); Mean Platelet Volume 9.8 fL (8.0-11.0); Monocytes % 7.2; Neutrophils % 77.8; Platelet Count 179 x1000/uL (130-400); RBC 3.94 m/cumm (4.50-6.00); RBC Distribution Width 13.5 % (11.8-14.1); White Blood Cell Count 6.12 k/cumm (4.4-10.8)
[2018-12-05] MEDS: Enoxaparin 40 MG/0.4 ML SYR SC (07:22)
[2018-12-05] MEDS: Metoprolol 50 MG TAB PO (07:23)
[2018-12-05 07:45] VITALS: BP 137/81; PULSE 58; RESP 18; TEMP 36.7; O2SAT 96
[2018-12-05] MEDS: Pantoprazole 40 MG VIAL IVP (09:57)
[2018-12-05] MEDS: Normal Saline Flush 10 ML SYR IVP (09:58)
--- NOTE | 2018-12-05 10:24 | PGE_ITS ---
Date of Service Date of service: 12/05/18 Time of Service: 10:22 Assessment and Plan (1) Enteritis: Current visit: Yes Status: Acute 58 y/o male with a remote history of incarcerated ventral hernia repair with mesh and small bowel resection with anastomosis in January 2018. Findings on CT indicative of a complicated focal enteritis at the site of his anastomosis with bowel wall thickening, fluid, bubbles of air, and possible abscesses. NO extravastion of contrast seen. Abdominal pain has resovled. He has been afebrile. WBC has normalized yesterday and this AM. Today is day #4 of IV Zosyn. Tolerating clear liquid diet, will progress to soft, low fiber diet for lunch. Encouraged continued ambulation through out the day. D/C home once competed course of IV antibiotics and tolerating a soft low fiber diet. Subjective Interval history since last seen: Mr. Saldivar reports that he is feeling much better today. He has been tolerating a clear liquid diet. Denies nausea or vomiting. His ABD pain has subsided. No more sharp pains. When will I be released? Tolerating IV zosyn. Reports he has had loose BMs yesterday and this morning. Exam Const General: cooperative, healthy appearing and comfortable Orientation: alert and oriented x3 Resp Effort & Inspection: normal respiratory effort, no audible wheezes and no cough Auscultation: clear to auscultation bilaterally and no wheezes Cardio Jugular venous pressure: no JVD Rate: regular rate Rhythm: regular rhythm Heart Sounds: S1 normal, S2 normal and no murmurs GI Inspection: normal to inspection and non-distended Palpation: soft, no guarding and nontender Auscultation: normal bowel sounds Objective Objective Clinical Data: Abnormal lab results 12/05/18 Range/Units 07:00 RBC 3.94 L (4.50-6.00) m/cumm Hgb 12.2 L (13.5-17.5) g/dL Hct 36.3 L (40.0-50.0) % Absolute Lymphocytes 0.50 L (1.2-3.4) k/cumm Vital Signs Temperature 36.7 C 12/05/18 07:45 Temperature Source Tympanic 12/05/18 07:45 Pulse 58 L 12/05/18 07:45 Pulse Rhythm Regular 12/05/18 07:18 Respiratory Rate 18 12/05/18 07:45 Respiratory Effort Non-Labored 12/05/18 07:18 Respiratory Depth Normal 12/05/18 07:18 Respiratory Pattern Normal 12/05/18 07:18 Blood Pressure 137/81 12/05/18 07:45 Blood Pressure Mean 91 12/02/18 09:01 Blood Pressure Position Sitting 12/02/18 04:42 Pulse Oximetry 96 12/05/18 07:45 Oxygen Delivery Method Room Air 12/05/18 07:45 Oxygen Flow Rate 0 12/05/18 07:45 End Tidal Co2 10 12/02/18 04:42 Pain Level 2 12/05/18 07:45 Comment 12/04/18 04:00 Intake & Output 12/04/18 12/04/18 12/05/18 11:59 23:59 11:59 Intake Total 2065.417 / 5211.250 1050 / 1050 Balance 2065.417 / 5211.250 1050 / 1050 Intake: IV 385.417 / 3531.250 1050 / 1050 Oral 1680 / 1680 Other: Comment Laboratory Results WBC 6.12 k/cumm (4.4-10.8) 12/05/18 07:00 RBC 3.94 m/cumm (4.50-6.00) L 12/05/18 07:00 Hgb 12.2 g/dL (13.5-17.5) L 12/05/18 07:00 Hct 36.3 % (40.0-50.0) L 12/05/18 07:00 MCV 92.1 fL (80-95) 12/05/18 07:00 MCH 31.0 pg (27.0-33.0) 12/05/18 07:00 MCHC 33.6 g/dL (32.0-36.0) 12/05/18 07:00 RDW 13.5 % (11.8-14.1) 12/05/18 07:00 Plt Count 179 x1000/uL (130-400) 12/05/18 07:00 MPV 9.8 fL (8.0-11.0) 12/05/18 07:00 Immature Gran % 0.2 12/05/18 07:00 Neutrophils % 77.8 12/05/18 07:00 Lymphocytes % 8.2 12/05/18 07:00 Monocytes % 7.2 12/05/18 07:00 Eosinophils % 6.4 12/05/18 07:00 Basophils % 0.2 12/05/18 07:00 Absolute Neutrophils 4.77 k/cumm (1.2-6.7) 12/05/18 07:00 Absolute Lymphocytes 0.50 k/cumm (1.2-3.4) L 12/05/18 07:00 Absolute Monocytes 0.44 k/cumm (0.11-0.7) 12/05/18 07:00 Absolute Eosinophils 0.39 k/cumm (0.0-0.7) 12/05/18 07:00 Absolute Basophils 0.01 k/cumm (0.0-0.2) 12/05/18 07:00 Sodium 139 mmol/L (136-145) 12/04/18 09:27 Potassium 3.6 mmol/L (3.5-5.1) 12/04/18 09:27 Chloride 103 mmol/L (98-107) 12/04/18 09:27 Carbon Dioxide 28.6 mmol/L (21.0-32.0) 12/04/18 09:27 Anion Gap 7.4 mmol/L (3-11) 12/04/18 09:27 BUN 20 mg/dL (7-18) H 12/04/18 09:27 Creatinine 1.48 mg/dL (0.70-1.30) H 12/04/18 09:27 Estimated GFR/1.73 m2 48.65 (mL/min/1.73m2) 12/04/18 09:27 Glucose 90 mg/dL (70-100) 12/04/18 09:27 Lactate 0.9 mmol/l (0.6-1.4) 12/02/18 16:45 Calcium 8.8 mg/dL (8.5-10.1) 12/04/18 09:27 Magnesium 1.7 mg/dL (1.8-2.4) L 12/04/18 09:27 Total Bilirubin 0.8 mg/dL (0.2-1.0) 12/02/18 05:20 AST 23 U/L (15-37) 12/02/18 05:20 ALT 30 U/L (12-78) 12/02/18 05:20 Alkaline Phosphatase 56 U/L (46-116) 12/02/18 05:20 Total Protein 7.3 g/dL (6.4-8.2) 12/02/18 05:20 Albumin 3.8 g/dL (3.4-5.0) 12/02/18 05:20 Lipase 158 U/L (73-393) 12/02/18 05:20 Urine Color Yellow (Yellow) 12/02/18 04:55 Urine Clarity Clear 12/02/18 04:55 Urine pH 6.5 (5-8) 12/02/18 04:55 Ur Specific [place] 1.015 (1.005-1.025) 12/02/18 04:55 Urine Protein Negative mg/dL (Negative) 12/02/18 04:55 Urine Ketones Negative mg/dL (Negative) 12/02/18 04:55 Urine Blood Negative (Negative) 12/02/18 04:55 Urine Nitrite Negative (Negative) 12/02/18 04:55 Urine Bilirubin Negative (Negative) 12/02/18 04:55 Urine Urobilinogen 0.2 EU/dL (Up TO 0.2) 12/02/18 04:55 Ur Leukocyte Esterase Negative (Negative) 12/02/18 04:55 Urine Glucose Negative mg/dL (Negative) 12/02/18 04:55
[2018-12-05 11:45] VITALS: BP 130/73; PULSE 60; RESP 18; TEMP 37.1; O2SAT 99
--- NOTE | 2018-12-05 11:48 | CHAPLAIN ---
Jas was in bed, on his phone and his Noreen was with him, playing games on her phone, when I stopped in. Jas said he expects to be going home today, and thanked me for visiting.
--- NOTE | 2018-12-05 14:30 | PDOC.CMPRO ---
- If Service Date Differs Date of service: 12/05/18 Time of Service: 14:30 Care Management Progress Note S/O: Jas is lying in bed this morning, he is receptive to discussion. Jas is wanting to return home, however states that he isn't ready yet, as he is in need of more IV antibiotics. No change in DC plan. A: 58 year old male admitted to [facility] 12/02/18 for Entertitis P: Jas will return home with no additional services anticipated at this time. He will follow up with Surgical Services and his PCP as well as his plan of care as prescribed. He will transport via private vehicle with his , Noreen.
[2018-12-05] MEDS: Lactated Ringers 1,000 ML 50 ML IV (14:37)
--- NOTE | 2018-12-05 14:42 | CMPROGNOTE_ITS ---
- If Service Date Differs Date of service: 12/05/18 Time of Service: 14:30 Care Management Progress Note S/O: Jas is lying in bed this morning, he is receptive to discussion. Jas is wanting to return home, however states that he isn't ready yet, as he is in need of more IV antibiotics. No change in DC plan. A: 58 year old male admitted to [facility] 12/02/18 for Entertitis P: Jas will return home with no additional services anticipated at this time. He will follow up with Surgical Services and his PCP as well as his plan of care as prescribed. He will transport via private vehicle with his , Noreen.
--- NOTE | 2018-12-05 14:56 | W.PM.DS.N ---
Date of service: 12/05/18 Time of Service: 14:56 DS: Diagnosis Discharge Diagnosis (1) Enteritis: Status: Acute Discharge Plan Disposition Patient Disposition: HOME Condition: Stable Discharge Details Reason For Visit: ENTERITIS Admit Date/Time: 12/02/18 10:11 Admit Provider: Reynaldo Christine Attending Provider: Reynaldo Christine Primary Care Provider: Domingo Ngo Hospital Course Hospital Course: 58 y/o male seen in the ED at [facility] with his daughter at the bedside on 12/02/18. Patient notes that he was doing well until he developed sudden, sharp, severe mid-abdominal pains last night after eating supper. He had one similar milder episode a week ago which only lasted about 1 hour. He felt intermittently hot and cold with associated dizziness. He denies nausea, vomiting, diarrhea, melena, hematochezia, dysuria, or hematuria. He had a normal BM yesterday. Pain is better after pain meds. Worse with coughiing or movement. He underwent an incarcerated ventral hernia repair with small bowel resection, anastomosis, and Ventralex mesh repair on 02/21/[address] Quintero. He had a superficial subcutaneous postop seroma/hematoma which was aspirated. He denies any abdominal complaints until last week. Workup in the ED was notable for a WBC ~17k. Lactate - 1.7. Hb - 15.4/44.6. CT abd/pelvis with IV contrast only was obtained. Films reviewed and VRADS CT report noted. There appear to be tiny bubbles of air in or adjacent to the bowel at the site of his anastomosis with a small amount of fluid. No recurrent hernia seen. Repeat CT with oral contrast obtained and films reviewed with radiologist, . Contrast traverses the anastomosis with no extravasation seen. Tiny bubble of air either in the wall or adjacent to the anastomosis. Bowel wall thickened at the anastomosis and mild dilation noted. Two tiny fluid collections, possible abscesses, adjacent. All findings are localized to the site of the anastomosis. The remainder of the bowel/ abdomen are unremarkable. He was started on Antibiotics and was placed on bowel rest. His WBC count came down to normal by wednesday and he started to feel better. On Wednesday he had loose stools, was passing flatus and his abdomen was soft and minimally tender. he was started on clear liquids which he tolerated very well. On Wednesday12/05/18 his diet was advanced and he did well with that. he had no increase in pain, and no N/V. he continues to have loose stools. Discussed Dx with him and that I am not sure why he developed this enteritis at the anastamosis 9 months after surgery. He had been doing well up until . I will Discharge him home on antibiotics to finish up a 10 day course. Continue on a soft and low fiber diet for 2 weeks Home Meds and New Rx's Prescriptions: New amoxicillin-pot clavulanate 1,000-62.5 mg tablet extended release 12 hr 1 tab PO BID Qty: 14 RF: 0 Continued chlorthalidone 25 MG tablet 25 mg PO DAILY RF: 0 ibuprofen 800 MG tablet 800 mg PO TID PRNRF: 0 lisinopril 20 MG tablet 20 mg PO DAILY RF: 0 allopurinol 100 MG tablet 300 mg PO DAILY RF: 0 aspirin [Children's Aspirin] 81 MG tablet,chewable 81 mg PO DAILY RF: 0 rosuvastatin [Crestor] 20 MG tablet 40 mg PO DAILY RF: 0 metoprolol tartrate 25 MG tablet 50 mg PO BID RF: 0 gemfibrozil 600 MG tablet 600 mg PO BID RF: 0 acetaminophen [Tylenol] 325 MG tablet 650 mg PO Q6H PRN PRNQty: 30 RF: 0 Discharge Instructions Instructions: Low Fiber Diet (GEN), Soft Diet (GEN), Enteritis (DC) Additional Instructions: Take your home medications as before There is a new prescription for an antibiotic. Take 1 tablet 2 x a day until finished Diet: soft and low fiber diet for 2 weeks Follow up: as needed with my office Activity:: Activity as Tolerated Equipment/Supplies:: No Equipment Needed Diet:: low fiber, soft Discharge Orders Discharge Orders: Discharge Order (Routine); Ordered 12/05/18 Ordered By: Coreen Quintero Exam Const General: cooperative and no acute distress Orientation: alert and oriented x3 GI Inspection: scar (well healed midline) Palpation: soft and nontender Auscultation: normal bowel sounds DS: Data Vitals/I&O Vitals and I&O: Vital Signs Temperature 98.8 F 12/05/18 11:45 Temperature Source Tympanic 12/05/18 11:45 Pulse 60 12/05/18 11:45 Pulse Rhythm Regular 12/05/18 07:18 Respiratory Rate 18 12/05/18 11:45 Respiratory Effort Non-Labored 12/05/18 07:18 Respiratory Depth Normal 12/05/18 07:18 Respiratory Pattern Normal 12/05/18 07:18 Blood Pressure 130/73 12/05/18 11:45 Blood Pressure Mean 91 12/02/18 09:01 Blood Pressure Position Sitting 12/02/18 04:42 Pulse Oximetry 99 12/05/18 11:45 Oxygen Delivery Method Room Air 12/05/18 11:45 Oxygen Flow Rate 0 12/05/18 11:45 End Tidal Co2 10 12/02/18 04:42 Pain Level 2 12/05/18 07:45 Comment 12/04/18 04:00 Intake & Output 12/04/18 12/05/18 12/05/18 23:59 11:59 23:59 Intake Total 2065.417 / 5211.250 2330 / 3570 1240 / 3570 Balance 2065.417 / 5211.250 2330 / 3570 1240 / 3570 Intake: IV 385.417 / 3531.250 1620 / 2620 1000 / 2620 Oral 1680 / 1680 710 / 950 240 / 950 Other: Urine Color Yellow Urine Appearance Clear Urine Odor Normal Comment Pt voiding ad alyson in toilet. No hat. Pt denies sx. Voiding Methods Toilet Labs on day of discharge: Labs from last 24 hours 12/05/18 07:00 WBC 6.12 RBC 3.94 L Hgb 12.2 L Hct 36.3 L MCV 92.1 MCH 31.0 MCHC 33.6 RDW 13.5 Plt Count 179 MPV 9.8 Immature Gran % 0.2 Neutrophils % 77.8 Lymphocytes % 8.2 Monocytes % 7.2 Eosinophils % 6.4 Basophils % 0.2 Absolute Neutrophils 4.77 Absolute Lymphocytes 0.50 L Absolute Monocytes 0.44 Absolute Eosinophils 0.39 Absolute Basophils 0.01 Preliminary micro results at discharge 12/02/18 16:45 Blood Culture - Preliminary Blood NO GROWTH 48 HOURS 12/02/18 16:45 Blood Culture - Preliminary Blood NO GROWTH 48 HOURS [facility] Medical History Hypercholesterolemia (Acute) Diabetes (Chronic) HTN (hypertension) (Chronic) CAD (coronary artery disease) (Chronic) Gout (Chronic) Surgical History Fx tibia/fibula shaft-op (Inactive) S/P CABG (coronary artery bypass graft) (Inactive) S/P hernia repair (Inactive) incarcerated ventral hernia with small bowel resection (Chronic 02/21/18) Social History Smoking and Tabacco status: Never
== END 2018-12-05 15:40 | disposition home or self-care (01) | DRG 392 ==
LOC: ER 10:31 → MS 10:58
PROVIDERS: Emergency Medicine; Admitting Provider Surgery; Emergency Provider Physician Assistant; PCP Specialist/Technologist Athletic Trainer; Visit Provider Surgery
DX: K52.9 Noninfective gastroenteritis and colitis, unspecified (principal); K63.89 Other specified diseases of intestine; E11.9 Type 2 diabetes mellitus without complications; I10 Essential (primary) hypertension; I25.10 Atherosclerotic heart disease of native coronary artery without angina pectoris
CPT/HCPCS: 36415; 80048; 80053; 83690; 87040; 96361; 96365; 96366; 96375; 96376; 99222; 99232; 99239; 99285; J1650; 74019; 74176; 74177; 81003; 83605; 83735; 85025; 99284; J1885; J2405; J2543; J3480; J3490; Q9967

== ENCOUNTER 2019-01-09 05:42 | Emergency (ER) | payer BC, SELFPAY ==
[2019-01-09] VITALS (35 sets, daily range): BP systolic 105–142; BP diastolic 59–83; PULSE 80–109; RESP 7–24; TEMP 37.1–37.7; O2SAT 86–99
--- NOTE | 2019-01-09 05:34 | W.ED.GENAD ---
Discharge Plan Disposition Patient Disposition: [facility] Condition: Stable Discharge Details Chief Complaint: Abd Prob Clinical Impression: Abdominal pain, Bowel perforation Primary Care Provider: Domingo Ngo ED Provider: Blayne Navas Home Meds and New Rx's Prescriptions: No Action chlorthalidone 25 MG tablet 25 mg PO DAILY RF: 0 ibuprofen 800 MG tablet 800 mg PO TID PRNRF: 0 lisinopril 20 MG tablet 20 mg PO DAILY RF: 0 allopurinol 100 MG tablet 300 mg PO DAILY RF: 0 aspirin [Children's Aspirin] 81 MG tablet,chewable 81 mg PO DAILY RF: 0 rosuvastatin [Crestor] 20 MG tablet 40 mg PO DAILY RF: 0 metoprolol tartrate 25 MG tablet 50 mg PO BID RF: 0 gemfibrozil 600 MG tablet 600 mg PO BID RF: 0 acetaminophen [Tylenol] 325 MG tablet 650 mg PO Q6H PRN PRNQty: 30 RF: 0 metformin 500 mg Tablet 500 mg PO DAILY RF: 0 Discharge Data Discharge Date/Time-TO BE ENTERED AT DEPARTURE: 01/09/19 11:45 Medical Decision Making <John Zhao MD - Last Filed: 01/10/19 08:12> 58 year old male with a history of incarcerated ventral hernia repair with mesh and small bowel resection with anastomosis in January 2018 and then an enteritis that was initially tx'd in November with IV abx switched to oral abx, cad, who comes in with chief complaint of abdominal pain since Wednesday and nausea/vomit as well. He states this feels similar to when he was here in November and dx'd with the enteritis. He has a diffusely tender abdomen with some mild distention, no rebound on exam. Will obtain lab work and ct with oral and iv contrast to eval for abscess, anastamosis leak, sbo, among other surgical pathology pt remains stable. He will be signed out pending imaging results to Dr. navas Differential Diagnosis abscess, sbo, enteritis Lab Data Lab results reviewed: Yes I reviewed the patient's lab results. <Blayne Navas DO - Last Filed: 01/09/19 11:19> The patient was signed out to be my my colleague Dr. Zhao. At that time we are pending laboratory workup and CT results. Laboratory workup demonstrates an elevated white count of 16, notable left shift, no bandemia at this point. Electrolytes demonstrate a slightly low potassium, slightly low magnesium, both of which are being corrected. Urinalysis is negative for any evidence of infection. CT scan results have returned and per her radiologist Dr. Lerma feels that there is evidence of extraluminal air as well as enteritis. With concern for bowel perforation. This is certainly concerning with his previous anastomoses. There are similar findings noted on his previous CT on his last visit, at which point he was treated nonsurgically with antibiotics. We have started Zosyn here. We did contact our surgeon Dr Mortensen and discussed the case with her, she did come and assessed the patient, she reviewed the previous CT scans and today's, and feels that at this time medical management likely indicated, however does require close surgical monitoring. Unfortunately the family is made it very clear that they would like to be transferred to [facility], would like to be evaluated by surgical specialties there. Myself and the surgeon discussed the risks and benefits of this, as well as the option of staying overnight here, family is making it very clear that he would still like to be transferred. He did contact Dr. Kwan at [facility], discussed the case with him images were reviewed, the patient's clinical scenario was assessed, and he recommended transfer down there to the ED for surgical evaluation. He had no additional recommendations at this time. Patient will be transferred by [facility] to [facility] for further surgical evaluation. I have extensively reviewed the treatment plan with the patient. I have addressed all patient concerns at this time. I have also discussed the plan with the transferring physician and they agree with the current assessment and plan and have agreed to assume responsibility for the patient. All parties demonstrate verbal understanding and agreement with our assessment and plan at this time. HPI <John Zhao MD - Last Filed: 01/10/19 08:12> General Mode of arrival: EMS. Date/Time Provider Initiated Documentation: 01/09/19 05:45. Limitations to Documentation: no limitations. Information obtained by: patient. History of Present Illness 58 year old M presents to the emergency department with the chief complaint of abd pain, described as severe, and is localized to the abdomen. Patient reports no radiation. Patient started experiencing this day(s) (2) and it has been constant. No relieving factors improve symptom(s), No exacerbating factors reported . Patient notes nausea/vomiting. Patient did receive the following treatments prior to arrival, none Related Data Home Medications Medication Instructions Recorded Confirmed allopurinol 300 mg PO DAILY 07/25/14 01/09/19 aspirin [Children's Aspirin] 81 mg PO DAILY 07/25/14 01/09/19 ibuprofen 800 mg PO TID PRN 07/25/14 01/09/19 lisinopril 20 mg PO DAILY 07/25/14 01/09/19 metoprolol tartrate 50 mg PO BID 07/25/14 01/09/19 rosuvastatin [Crestor] 40 mg PO DAILY 07/25/14 01/09/19 gemfibrozil 600 mg PO BID 09/09/15 01/09/19 chlorthalidone 25 mg PO DAILY tab-cap 10/16/15 01/09/19 acetaminophen [Tylenol] 650 mg PO Q6H PRN PRN #30 tab 02/28/18 01/09/19 metformin 500 mg PO DAILY 01/09/19 01/09/19 Previous Rx's Medication Instructions Recorded acetaminophen [Tylenol] 650 mg PO Q6H PRN PRN #30 tab 02/28/18 Allergies Allergy/AdvReac Type Severity Reaction Status Date / Time No Known Allergies Allergy Unverified 01/09/19 06:20 General YEHUDA: 3 Review of Systems <John Zhao MD - Last Filed: 01/10/19 08:12> Review of Systems All systems reviewed & are unremarkable except as noted in HPI and below Constitutional Denies weakness ENT Denies change in voice Cardiovascular Denies chest pain and Denies dyspnea Respiratory Denies cough and Denies dyspnea Neurologic Denies weakness PFSH <John Zhao MD - Last Filed: 01/10/19 08:12> Medical History Abdominal pain (Acute) Hypercholesterolemia (Acute) CAD (coronary artery disease) (Chronic) Diabetes (Chronic) Gout (Chronic) HTN (hypertension) (Chronic) Surgical History incarcerated ventral hernia with small bowel resection (Chronic 02/21/18) Fx tibia/fibula shaft-op (Inactive) S/P CABG (coronary artery bypass graft) (Inactive) S/P hernia repair (Inactive) Social History Smoking/Tobacco Use Status: Never Drug use: Never Do you feel safe in your relationship?: No Exam <John Zhao MD - Last Filed: 01/10/19 08:12> Const General: no acute distress Orientation: alert HENMT Head: normal to inspection Ears: external ears normal General nose exam: external nose normal Mouth: moist mucous membranes Eyes General: appearance normal, both eyes and all related structures Neck Neck: normal visual inspection Resp Effort & Inspection: normal respiratory effort and able to speak in complete sentences Cardio Rate: regular rate GI Palpation: tender Skin General skin exam: no rashes or lesions noted Neuro General: alert and oriented x3 Extrem General: normal to inspection Psych Mental Status: mental status grossly normal
--- NOTE | 2019-01-09 05:48 | ED.GENADUL_ITS ---
Discharge Plan Disposition Patient Disposition: [facility] Condition: Stable Discharge Details Chief Complaint: Abd Prob Clinical Impression: Abdominal pain, Bowel perforation Primary Care Provider: Domingo Ngo ED Provider: Blayne Navas Home Meds and New Rx's Prescriptions: No Action chlorthalidone 25 MG tablet 25 mg PO DAILY RF: 0 ibuprofen 800 MG tablet 800 mg PO TID PRNRF: 0 lisinopril 20 MG tablet 20 mg PO DAILY RF: 0 allopurinol 100 MG tablet 300 mg PO DAILY RF: 0 aspirin [Children's Aspirin] 81 MG tablet,chewable 81 mg PO DAILY RF: 0 rosuvastatin [Crestor] 20 MG tablet 40 mg PO DAILY RF: 0 metoprolol tartrate 25 MG tablet 50 mg PO BID RF: 0 gemfibrozil 600 MG tablet 600 mg PO BID RF: 0 acetaminophen [Tylenol] 325 MG tablet 650 mg PO Q6H PRN PRNQty: 30 RF: 0 metformin 500 mg Tablet 500 mg PO DAILY RF: 0 Discharge Data Discharge Date/Time-TO BE ENTERED AT DEPARTURE: 01/09/19 11:45 Medical Decision Making <John Zhao MD - Last Filed: 01/10/19 08:12> 58 year old male with a history of incarcerated ventral hernia repair with mesh and small bowel resection with anastomosis in January 2018 and then an enteritis that was initially tx'd in November with IV abx switched to oral abx, cad, who comes in with chief complaint of abdominal pain since Wednesday and nausea/vomit as well. He states this feels similar to when he was here in November and dx'd with the enteritis. He has a diffusely tender abdomen with some mild distention, no rebound on exam. Will obtain lab work and ct with oral and iv contrast to eval for abscess, anastamosis leak, sbo, among other surgical pathology pt remains stable. He will be signed out pending imaging results to Dr. navas Differential Diagnosis abscess, sbo, enteritis Lab Data Lab results reviewed: Yes I reviewed the patient's lab results. <Blayne Navas DO - Last Filed: 01/09/19 11:19> The patient was signed out to be my my colleague Dr. Zhao. At that time we are pending laboratory workup and CT results. Laboratory workup demonstrates an elevated white count of 16, notable left shift, no bandemia at this point. Electrolytes demonstrate a slightly low potassium, slightly low magnesium, both of which are being corrected. Urinalysis is negative for any evidence of infection. CT scan results have returned and per her radiologist Dr. Lerma feels that there is evidence of extraluminal air as well as enteritis. With concern for bowel perforation. This is certainly concerning with his previous anastomoses. There are similar findings noted on his previous CT on his last visit, at which point he was treated nonsurgically with antibiotics. We have started Zosyn here. We did contact our surgeon Dr Mortensen and discussed the case with her, she did come and assessed the patient, she reviewed the previous CT scans and today's, and feels that at this time medical management likely indicated, however does require close surgical monitoring. Unfortunately the family is made it very clear that they would like to be transferred to [facility], would like to be evaluated by surgical specialties there. Myself and the surgeon discussed the risks and benefits of this, as well as the option of staying overnight here, family is making it very clear that he would still like to be transferred. He did contact Dr. Kwan at [facility], discussed the case with him images were reviewed, the patient's clinical scenario was assessed, and he recommended transfer down there to the ED for surgical evaluation. He had no additional recommendations at this time. Patient will be transferred by [facility] to [facility] for further surgical evaluation. I have extensively reviewed the treatment plan with the patient. I have addressed all patient concerns at this time. I have also discussed the plan with the transferring physician and they agree with the current assessment and plan and have agreed to assume responsibility for the patient. All parties demonstrate verbal understanding and agreement with our assessment and plan at this time. HPI <John Zhao MD - Last Filed: 01/10/19 08:12> General Mode of arrival: EMS . Date/Time Provider Initiated Documentation: 01/09/19 05:45 . Limitations to Documentation: no limitations . Information obtained by: patient . History of Present Illness 58 year old M presents to the emergency department with the chief complaint of abd pain, described as severe, and is localized to the abdomen. Patient reports no radiation. Patient started experiencing this day(s) (2) and it has been constant. No relieving factors improve symptom(s), No exacerbating factors reported . Patient notes nausea/vomiting. Patient did receive the following treatments prior to arrival, none Related Data Home Medications Medication Instructions Recorded Confirmed allopurinol 300 mg PO DAILY 07/25/14 01/09/19 aspirin [Children's Aspirin] 81 mg PO DAILY 07/25/14 01/09/19 ibuprofen 800 mg PO TID PRN 07/25/14 01/09/19 lisinopril 20 mg PO DAILY 07/25/14 01/09/19 metoprolol tartrate 50 mg PO BID 07/25/14 01/09/19 rosuvastatin [Crestor] 40 mg PO DAILY 07/25/14 01/09/19 gemfibrozil 600 mg PO BID 09/09/15 01/09/19 chlorthalidone 25 mg PO DAILY tab-cap 10/16/15 01/09/19 acetaminophen [Tylenol] 650 mg PO Q6H PRN PRN #30 tab 02/28/18 01/09/19 metformin 500 mg PO DAILY 01/09/19 01/09/19 Previous Rx's Medication Instructions Recorded acetaminophen [Tylenol] 650 mg PO Q6H PRN PRN #30 tab 02/28/18 Allergies Allergy/AdvReac Type Severity Reaction Status Date / Time No Known Allergies Allergy Unverified 01/09/19 06:20 General YEHUDA: 3 Review of Systems <John Zhao MD - Last Filed: 01/10/19 08:12> Review of Systems All systems reviewed & are unremarkable except as noted in HPI and below Constitutional Denies weakness ENT Denies change in voice Cardiovascular Denies chest pain and Denies dyspnea Respiratory Denies cough and Denies dyspnea Neurologic Denies weakness PFSH <John Zhao MD - Last Filed: 01/10/19 08:12> Medical History Abdominal pain (Acute) Hypercholesterolemia (Acute) CAD (coronary artery disease) (Chronic) Diabetes (Chronic) Gout (Chronic) HTN (hypertension) (Chronic) Surgical History incarcerated ventral hernia with small bowel resection (Chronic 02/21/18) Fx tibia/fibula shaft-op (Inactive) S/P CABG (coronary artery bypass graft) (Inactive) S/P hernia repair (Inactive) Social History Smoking/Tobacco Use Status: Never Drug use: Never Do you feel safe in your relationship?: No Exam <John Zhao MD - Last Filed: 01/10/19 08:12> Const General: no acute distress Orientation: alert HENMT Head: normal to inspection Ears: external ears normal General nose exam: external nose normal Mouth: moist mucous membranes Eyes General: appearance normal, both eyes and all related structures Neck Neck: normal visual inspection Resp Effort & Inspection: normal respiratory effort and able to speak in complete sentences Cardio Rate: regular rate GI Palpation: tender Skin General skin exam: no rashes or lesions noted Neuro General: alert and oriented x3 Extrem General: normal to inspection Psych Mental Status: mental status grossly normal
[2019-01-09] MEDS: Normal Saline 1,000 ML 1000 ML IV (05:55)
[2019-01-09] MEDS: Ondansetron 4 MG/2 ML VIAL IVP (06:00)
[2019-01-09] MEDS: HYDROmorphone 2 MG/ML VIAL 1 MG IVP ×4 (06:05→10:58)
[2019-01-09 06:35] LABS: Lactate-non-spesis 1.7 mmol/l (0.6-1.4)
[2019-01-09 06:39] LABS: Abs Immature Grans 0.04 k/cumm (0.0-0.09); Absolute Basophil Count 0.02 k/cumm (0.0-0.2); Absolute Lymphocyte Count 0.68 k/cumm (1.2-3.4); Absolute Monocyte Count 0.95 k/cumm (0.11-0.7); Absolute Neutrophil Count 14.31 k/cumm (1.2-6.7); Basophils % 0.1; Eosinophils % 1.1; HCT 43.1 % (40.0-50.0); Immature Grans % 0.2; Lymphocytes % 4.2; Mean Corp. HGB Concentration 34.8 g/dL (32.0-36.0); Mean Corpuscular Hemoglobin 31.1 pg (27.0-33.0); Mean Corpuscular Volume 89.2 fL (80-95); Mean Platelet Volume 10.1 fL (8.0-11.0); Monocytes % 5.9; Neutrophils % 88.5; Platelet Count 214 x1000/uL (130-400); RBC 4.83 m/cumm (4.50-6.00); RBC Distribution Width 14.3 % (11.8-14.1); White Blood Cell Count 16.17 k/cumm (4.4-10.8)
[2019-01-09 06:45] LABS: Absolute Eosinophil Count 0.18 k/cumm (0.0-0.7)
[2019-01-09 06:53] LABS: ALT 25 U/L (12-78); AST 12 U/L (15-37); Albumin 3.5 g/dL (3.4-5.0); Alkaline Phosphatase 64 U/L (46-116); Anion Gap 13.1 mmol/L (3-11); BUN 27 mg/dL (7-18); Bilirubin, Total 0.7 mg/dL (0.2-1.0); CO2 23.9 mmol/L (21.0-32.0); CREATININE 1.25 mg/dL (0.70-1.30); Chloride 102 mmol/L (98-107); Estimated GFR 59.12 (mL/min/1.73m2); Glucose 139 mg/dL (70-100); Lipase 152 U/L (73-393); Magnesium 1.4 mg/dL (1.8-2.4); Potassium 3.3 mmol/L (3.5-5.1); Sodium 139 mmol/L (136-145); Total Protein 7.2 g/dL (6.4-8.2)
[2019-01-09 07:28] LABS: INR 1.1 (0.9-1.1); Prothrombin Time 11.1 sec (9.3-11.0)
[2019-01-09] MEDS: Omnipaque 350 MG/ML 100 ML BTL IJ (07:46)
--- NOTE | 2019-01-09 07:52 | DI.CT_ITS ---
SYMPTOM/DIAGNOSIS: ABDOMINAL PAIN, N/V ABDOMINAL AND PELVIC CT: 01/09/19 CT examination of the abdomen and pelvis was performed with a bolus infusion of 100 cc Omnipaque 350 and ingestion of dilute barium. Images obtained through the lung bases are unremarkable. Liver, spleen, pancreas, gallbladder and bile ducts are unremarkable. The patient has reportedly had a previous ventral hernia repair. The examination is compared to previous examination of 12/02/18 and note is again made of multiple abnormal loops of small bowel in the anterior mid-abdomen with surrounding edema and trace free intraperitoneal fluid. Tiny flecks of gas are seen extraluminally in the mesenteric fat without any gross free air layering anteriorly The terminal ileum is normal in appearance. No evidence of obstruction. Kidneys and adrenals are unremarkable. Abdominal aorta is of normal diameter and no major vascular abnormality is seen. CONCLUSION: Findings consistent with extraluminal gas and marked inflammation associated with abnormal bowel loops in mid-abdomen. The findings are similar to the findings noted on 12/02/18 CT. No gross abscess formation at this time.
[2019-01-09] MEDS: MAGNESIUM SULFATE 1 GM/100 ML BAG IVPB (08:04)
[2019-01-09] MEDS: Normal Saline 1,000 ML 125 ML IV (08:06)
[2019-01-09 08:41] LABS: Bilirubin Negative (Negative); Blood Negative (Negative); Clarity Clear; Glucose Negative (Negative); Ketones Negative (Negative); Leukocyte Esterase Negative (Negative); Nitrite Negative (Negative); pH 6.5 (5-8)
[2019-01-09] MEDS: PIPERACILLIN/TAZO 4.5 GM in Normal Saline 100 ML IVPB (09:25)
--- NOTE | 2019-01-09 10:01 | W.SURGCON ---
Date of service: 01/09/19 Time of Service: 10:01 Assessment and Plan (1) Abdominal pain: Current visit: Yes Status: Acute left lateral abdominal pain w/ rebound and guarding. CT reviewed w/ rads. CT is the findings as 12/02/18 admission- edema around loops of sm bowel/fluid (but not a collection) and tiny flecks of free air. was done w/ contrast. uncertain of etiology or significance. Pt does have localized peritionits/fever/elevated WBC count. Similar exam findings and CT findings as on vitis of 12/02 unclear of that Dg at that time. pt wants to be transferred to [facility]. they do have beds and did except the pt in transfer if no beds: admit for IV abx nad obs and further blood work. consider capsule endoscopy as outpt. History of Present Illness Narrative: pt developed abdom pain on . It is in the same location as 12/02 and same type of pain. He says it just started randomly. no travel/injury/changes in meds or supp. No changes in diet. denies trauma. no constipation or straining to move bowels. + fever/chills. +vomiting this am. last BM was yest. and slt diarrhea. no blood. pain is under nad lateral to incisions. localized rebound and guarding. no distention or diffuse peritonitis. Reviewed notes from last admission and d/w Dr. Carrero. unclear of Dg last admission. reviewed CT w/ rads- similar findings on CT- but the CT is not just unchanged. but about same serverity. fluid but not a collection/edema in bowel and mesentery and few specks of free air. near the anastomsosis. Consults Consult date: 01/09/19 Requesting physician: Blayne Pollard Review of Systems Review of Systems All systems reviewed & are unremarkable except as noted in HPI and below Constitutional Reports as per HPI, Reports system reviewed and no additional complaints, except as docu, Denies anorexia, Denies chills, Denies difficulty sleeping, Denies fatigue, Denies headache(s), Denies lethargy, Denies malaise, Denies poor appetite, Denies weakness, Denies weight gain and Denies weight loss Eyes Reports as per HPI, Reports system reviewed and no additional complaints, except as docu and Denies change in vision ENT Reports system reviewed and no additional complaints, except as docu, Reports as per HPI, Denies change in voice, Denies dental pain, Denies dysphagia, Denies dizziness, Denies facial pain, Denies headache(s) and Denies odynophagia Cardiovascular Reports as per HPI, Reports system reviewed and no additional complaints, except as docu, Denies chest pain, Denies chest pain with activity, Denies syncope, Denies leg edema and Denies dyspnea Respiratory Reports as per HPI, Reports system reviewed and no additional complaints, except as docu, Denies chest congestion, Denies cough, Denies pain with cough and Denies dyspnea Gastrointestinal Reports as per HPI, Reports system reviewed and no additional complaints, except as docu, Reports abdominal pain, Denies bloating, Denies change in bowel habits, Reports change in stool character, Denies constipation, Reports cramping, Denies dysphagia, Denies early satiety, Denies heartburn, Reports diarrhea, Reports nausea, Denies odynophagia and Reports vomiting Comments: see HPI post sx changes noted. no recurrence of hernia. incision is c/d/i. Genitourinary Reports system reviewed and no additional complaints, except as docu Musculoskeletal Reports system reviewed and no additional complaints, except as docu, Reports as per HPI, Denies abnormal gait, Denies arthralgias and Denies muscle weakness Integumentary/Breasts Reports system reviewed and no additional complaints, except as docu, Reports as per HPI, Denies changing lesions, Denies new lesions and Denies jaundice Neurologic Reports system reviewed and no additional complaints, except as docu, Reports as per HPI, Denies abnormal speech, Denies abnormal gait, Denies dizziness, Denies syncope, Denies headache(s), Denies memory loss and Denies weakness Psychiatric Reports system reviewed and no additional complaints, except as docu, Reports as per HPI, Denies change in appetite and Denies memory loss Endocrine Denies fatigue, Denies polydipsia and Denies polyuria Hematologic/Lymphatic Reports system reviewed and no additional complaints, except as docu, Denies easy bleeding and Denies easy bruising Allergic/Immunologic Denies system reviewed and no additional complaints, except as docu, Reports as per HPI and Denies urticaria PFSH Medical History Abdominal pain (Acute) Hypercholesterolemia (Acute) CAD (coronary artery disease) (Chronic) Diabetes (Chronic) Gout (Chronic) HTN (hypertension) (Chronic) Surgical History incarcerated ventral hernia with small bowel resection (Chronic 02/21/18) Fx tibia/fibula shaft-op (Inactive) S/P CABG (coronary artery bypass graft) (Inactive) S/P hernia repair (Inactive) Social History Smoking/Tobacco Use Status: Never Drug use: Never Do you feel safe in your relationship?: No Exam Const General: cooperative, healthy appearing, comfortable, no acute distress, well developed and well groomed Nutritional Appearance: average body habitus and well nourished Orientation: alert, awake and oriented x3 HENMT Head: normal to inspection, normocephalic and atraumatic Ears: hearing grossly normal bilaterally and external ears normal General nose exam: external nose normal Face and sinus: normal facial exam and sinuses nontender Mouth: oral mucosae normal, lip normal, tongue normal and moist mucous membranes Teeth and gingiva: fair dentition Eyes General: appearance normal, both eyes and all related structures Conjunctivae: conjunctivae normal Sclera: sclerae normal Pupils: PERRL Neck Neck: normal visual inspection and full ROM Chest Chest: normal inspection of the chest Resp Effort & Inspection: normal respiratory effort, able to speak in complete sentences, no cough, no nasal flaring, not tachypneic and no use of accessory muscles Auscultation: clear to auscultation bilaterally, no rales, no rhonchi and no wheezes Cardio Jugular venous pressure: no JVD Rate: regular rate Rhythm: regular rhythm GI Inspection: normal to inspection, no edema, non-distended and incision Palpation: soft, guarding, no masses, nontender and No ascites Auscultation: normal bowel sounds Other: pain in left lat abdom w/ localized guarding nad tenderness. good bs. no hernias. incision well healed and non drainage. Skin General skin exam: no rashes or lesions noted Trauma: no lacerations or abrasions Neuro General: alert, oriented x3, oriented, gait normal, moves all extremities, no focal motor deficits and CN's II-XI intact bilaterally Cognition: normal cognition Speech: speech normal Gait: normal gait Motor: muscle tone normal throughout Extrem General: normal to inspection, full ROM and no clubbing, cyanosis or edema Psych Appearance: grossly normal and well kempt Mental Status: mental status grossly normal Speech and Movement: speech and movement normal Affect: normal affect Results Last Vital Signs Temp 37.2 C 01/09/19 07:20 Pulse 93 H 01/09/19 09:46 Resp 16 01/09/19 09:46 BP 125/72 01/09/19 09:46 Pulse Ox 94 L 01/09/19 09:46 Labs : 01/09/19 05:55 01/09/19 05:55 Laboratory Results - last 24 hr 01/09/19 01/09/19 01/09/19 05:55 05:55 05:55 WBC 16.17 H RBC 4.83 Hgb 15.0 Hct 43.1 MCV 89.2 MCH 31.1 MCHC 34.8 RDW 14.3 H Plt Count 214 MPV 10.1 Immature Gran % 0.2 Neutrophils % 88.5 Lymphocytes % 4.2 Monocytes % 5.9 Eosinophils % 1.1 Basophils % 0.1 Absolute Neutrophils 14.31 H Absolute Lymphocytes 0.68 L Absolute Monocytes 0.95 H Absolute Eosinophils 0.18 Absolute Basophils 0.02 PT INR APTT Sodium 139 Potassium 3.3 L Chloride 102 Carbon Dioxide 23.9 Anion Gap 13.1 H BUN 27 H Creatinine 1.25 Estimated GFR/1.73 m2 59.12 Glucose 139 H Lactate 1.7 H Calcium 9.0 Magnesium 1.4 L Total Bilirubin 0.7 AST 12 L ALT 25 Alkaline Phosphatase 64 Total Protein 7.2 Albumin 3.5 Lipase 152 Urine Color Urine Clarity Urine pH Ur Specific Valentine Urine Protein Urine Ketones Urine Blood Urine Nitrite Urine Bilirubin Urine Urobilinogen Ur Leukocyte Esterase Urine Glucose 01/09/19 01/09/19 05:55 08:20 WBC RBC Hgb Hct MCV MCH MCHC RDW Plt Count MPV Immature Gran % Neutrophils % Lymphocytes % Monocytes % Eosinophils % Basophils % Absolute Neutrophils Absolute Lymphocytes Absolute Monocytes Absolute Eosinophils Absolute Basophils PT 11.1 H INR 1.1 APTT 30.0 Sodium Potassium Chloride Carbon Dioxide Anion Gap BUN Creatinine Estimated GFR/1.73 m2 Glucose Lactate Calcium Magnesium Total Bilirubin AST ALT Alkaline Phosphatase Total Protein Albumin Lipase Urine Color Yellow Urine Clarity Clear Urine pH 6.5 Ur Specific Valentine 1.010 Urine Protein Negative Urine Ketones Negative Urine Blood Negative Urine Nitrite Negative Urine Bilirubin Negative Urine Urobilinogen 1.0 H Ur Leukocyte Esterase Negative Urine Glucose Negative
== END 2019-01-09 11:45 | disposition short-term general hospital (02) ==
PROVIDERS: Emergency Medicine; Emergency Provider Student in an Organized Health Care Education/Training Program; PCP Specialist/Technologist Athletic Trainer
DX: R10.817 Generalized abdominal tenderness (principal); K43.6 Other and unspecified ventral hernia with obstruction, without gangrene; K63.1 Perforation of intestine (nontraumatic); K52.9 Noninfective gastroenteritis and colitis, unspecified; E87.6 Hypokalemia; E83.42 Hypomagnesemia; R11.2 Nausea with vomiting, unspecified; E11.9 Type 2 diabetes mellitus without complications; Z79.84 Long term (current) use of oral hypoglycemic drugs; I10 Essential (primary) hypertension
CPT/HCPCS: 36415; 80053; 83690; 96361; 96365; 96367; 96375; 96376; 99253; 99285; 74177; 81003; 83605; 83735; 85025; 85610; 85730; J2405; J2543; J3475; J3490

== ENCOUNTER 2019-11-23 09:32 | Outpatient (REF) | payer BC, SELFPAY ==
[2019-11-23 19:36] LABS: HCT 46.7 % (40.0-50.0); HGB 16.4 g/dL (13.5-17.5); Mean Corp. HGB Concentration 35.1 g/dL (32.0-36.0); Mean Corpuscular Hemoglobin 31.7 pg (27.0-33.0); Mean Corpuscular Volume 90.3 fL (80-95); Mean Platelet Volume 10.2 fL (8.0-11.0); Platelet Count 280 x1000/uL (130-400); RBC 5.17 m/cumm (4.50-6.00); RBC Distribution Width 13.3 % (11.8-14.1); White Blood Cell Count 6.67 k/cumm (4.4-10.8)
[2019-11-23 20:02] LABS: ALT 77 U/L (16-63); AST 33 U/L (15-37); Albumin 4.1 g/dL (3.4-5.0); Alkaline Phosphatase 67 U/L (46-116); Anion Gap 13.4 mmol/L (3-11); BUN 19 mg/dL (7-18); Bilirubin, Total 0.5 mg/dL (0.2-1.0); CO2 23.6 mmol/L (21.0-32.0); CREATININE 1.35 mg/dL (0.70-1.30); Chloride 108 mmol/L (98-107); Cholesterol 249 mg/dL (<200); Estimated GFR 53.91 (mL/min/1.73m2); Glucose 124 mg/dL (74-106); HDL Cholesterol 28 mg/dL (40-60); Potassium 4.3 mmol/L (3.5-5.1); Sodium 145 mmol/L (136-145); Total Protein 6.6 g/dL (6.4-8.2); Triglyceride 408 mg/dL (<150)
[2019-11-23 20:16] LABS: LDL CHOLESTEROL 154 mg/dL (<100)
[2019-11-23 20:20] LABS: Hemoglobin A1C 6.1 % (3.8-5.6)
== END 2019-11-23 09:52 ==
LOC: NCHCN 09:32
PROVIDERS: PCP Specialist/Technologist Athletic Trainer; Visit Provider Nurse Practitioner Family
DX: E78.2 Mixed hyperlipidemia (principal); E11.9 Type 2 diabetes mellitus without complications
CPT/HCPCS: 80053; 80061; 83721; 85027; 83036

== ENCOUNTER 2021-01-13 08:53 | Outpatient (REF) | payer BC, SELFPAY ==
[2021-01-13 16:13] LABS: Hemoglobin A1C 7.3 % (<5.7)
[2021-01-13 16:26] LABS: ALT 138 U/L (16-63); AST 101 U/L (15-37); Albumin 3.9 g/dL (3.4-5.0); Alkaline Phosphatase 49 U/L (46-116); Anion Gap 10.4 mmol/L (3-11); BUN 20 mg/dL (7-18); Bilirubin, Total 0.5 mg/dL (0.2-1.0); CO2 23.6 mmol/L (21.0-32.0); CREATININE 1.3 mg/dL (0.70-1.30); Calcium 8.5 mg/dL (8.5-10.1); Chloride 108 mmol/L (98-107); Cholesterol 269 mg/dL (<200); Estimated GFR 56.12 (mL/min/1.73m2); Glucose 176 mg/dL (74-106); HDL Cholesterol 25 mg/dL (40-60); Sodium 142 mmol/L (136-145); Total Protein 6.7 g/dL (6.4-8.2); Triglyceride 720 mg/dL (<150)
[2021-01-13 16:40] LABS: LDL CHOLESTEROL 125 mg/dL (<100)
== END 2021-01-13 08:54 | disposition home or self-care (01) ==
LOC: NCHCN 08:53
PROVIDERS: PCP Specialist/Technologist Athletic Trainer; Visit Provider Nurse Practitioner Family
DX: E11.9 Type 2 diabetes mellitus without complications (principal); E78.2 Mixed hyperlipidemia; Z51.81 Encounter for therapeutic drug level monitoring
CPT/HCPCS: 80053; 80061; 83721; 83036

== ENCOUNTER 2021-08-29 10:15 | Outpatient (REF) | payer SELFPAY ==
[2021-08-29 15:10] LABS: ALT 103 U/L (16-63); Albumin 3.9 g/dL (3.4-5.0); Alkaline Phosphatase 91 U/L (46-116); Bilirubin, Total 0.7 mg/dL (0.2-1.0); Cholesterol 236 mg/dL (<200); GGT 156 U/L (15-85); HDL Cholesterol 25 mg/dL (40-60); Total Protein 6.7 g/dL (6.4-8.2)
[2021-08-29 15:20] LABS: Triglyceride 1411 mg/dL (<150)
[2021-08-29 15:37] LABS: LDL CHOLESTEROL 45 mg/dL (<100)
[2021-08-29 16:14] LABS: Bilirubin, Direct 0.2 mg/dL (0.0-0.2)
[2021-08-29 16:53] LABS: AST 64 U/L (15-37)
== END 2021-08-29 10:16 | disposition home or self-care (01) ==
LOC: NCHCN 10:15
PROVIDERS: PCP Specialist/Technologist Athletic Trainer; Visit Provider Nurse Practitioner Family
DX: R94.5 Abnormal results of liver function studies (principal)
CPT/HCPCS: 80061; 80076; 83721; 82977

== ENCOUNTER 2021-10-13 02:19 | Outpatient (CLI) | payer OTHER, SELFPAY ==
[2021-10-14 10:15] LABS: Hepatitis C Ab w Rflx HCV PCR Negative (Negative)
== END 2021-10-13 02:20 | disposition home or self-care (01) ==
PROVIDERS: PCP Specialist/Technologist Athletic Trainer; Visit Provider Family Medicine
DX: R94.5 Abnormal results of liver function studies (principal); Z11.59 Encounter for screening for other viral diseases
CPT/HCPCS: 36415; 86803; 82728; 83540; 83550

== ENCOUNTER 2021-10-14 02:33 | Outpatient (CLI) | payer OTHER, SELFPAY ==
[2021-10-14 14:49] LABS: Iron 87 ug/dL (65-175); Total Iron Binding Capacity 251 ug/dL (250-450)
[2021-10-14 15:03] LABS: Ferritin 651 ng/mL (26-388)
[2021-10-15 10:21] LABS: Hepatitis C Ab w Rflx HCV PCR Negative (Negative)
== END 2021-10-14 02:34 | disposition home or self-care (01) ==
LOC: LBO 02:33
PROVIDERS: Nurse Practitioner Family; PCP Specialist/Technologist Athletic Trainer; Visit Provider Family Medicine
DX: R94.5 Abnormal results of liver function studies (principal); Z11.59 Encounter for screening for other viral diseases
CPT/HCPCS: 86803; 82728; 83540; 83550

== ENCOUNTER 2022-01-23 01:54 | Outpatient (CLI) | payer OTHER, SELFPAY ==
[2022-01-23 11:11] LABS: HGB 15.9 g/dL (13.5-17.5); MCH 30.1 pg (27.0-33.0); MCHC 33.8 % (32.0-36.0); MCV 89 fL (80-95); MPV 9.2 fL (8.0-11.0); Platelet Count 203 10^3/uL (130-400); RBC 5.29 10^6/uL (4.36-5.78); RDW 13.2 % (11.8-14.1); RDW-SD 42.6 fL; WBC 6.49 10^3/uL (4.4-10.8)
[2022-01-23 12:21] LABS: CO2 27.4 mmol/L (21.0-32.0); Cholesterol 307 mg/dL (<200); HDL Cholesterol 30 mg/dL (40-60)
[2022-01-23 12:27] LABS: Triglyceride 1159 mg/dL (<150)
[2022-01-23 13:11] LABS: Albumin 4.4 g/dL (3.4-5.0); Alkaline Phosphatase 76 U/L (46-116); Anion Gap 11.6 mmol/L (3-11); BUN 18 mg/dL (7-18); Bilirubin, Total 0.6 mg/dL (0.2-1.0); CREATININE 1.2 mg/dL (0.70-1.30); Calcium 9.7 mg/dL (8.5-10.1); Glucose 218 mg/dL (74-106); Total Protein 7.2 g/dL (6.4-8.2)
[2022-01-23 13:12] LABS: ALT 41 U/L (16-63); AST 24 U/L (15-37); Chloride 104 mmol/L (98-107); LDL CHOLESTEROL 98 mg/dL (<100); Potassium 3.9 mmol/L (3.5-5.1); Sodium 143 mmol/L (136-145)
== END 2022-01-23 01:55 | disposition home or self-care (01) ==
LOC: LBO 01:54
PROVIDERS: PCP Specialist/Technologist Athletic Trainer; Visit Provider Nurse Practitioner Family
DX: E78.1 Pure hyperglyceridemia (principal); R94.5 Abnormal results of liver function studies; E11.9 Type 2 diabetes mellitus without complications
CPT/HCPCS: 36415; 80053; 80061; 83721; 85027

== ENCOUNTER 2023-03-20 17:14 | Inpatient (IN) | payer MEDICAID, SELFPAY ==
[2023-03-20] VITALS (103 sets, daily range): BP systolic 69–97; BP diastolic 40–55; PULSE 71–87; RESP 10–29; TEMP 36.2–36.9; O2SAT 94–98
--- NOTE | 2023-03-20 17:15 | RT.EKG_ITS ---
APPROVED REPORT Exam: Resting ECG Reason for Exam: dizzy/ SOB Patient Location: E HR:81 bpm ECG Measurements Heart Rate 81 AXIS TN 208 P 10 QRSd 92 QRS -50 QT 382 T 20 QTc 443 Conclusion Sinus rhythm...normal P axis, V-rate 60- 99 Inferior infarct, old...Q >35mS, II III aVF Consider anterior infarct...Q >30mS in V2-V5
--- NOTE | 2023-03-20 17:30 | W.ED.GENAD ---
Discharge Plan Disposition Patient Disposition: Admit to [facility] Discharge Details Clinical Impression: MADONNA (acute kidney injury) Primary Care Provider: Domingo Ngo ED Provider: Peter Carney [place] Meds and New Rx's Prescriptions: No Action prednisone 20 mg tablet See Rx Instructions PO DAILY Qty: 11 0RF Patient Comments: rx complete 03/20/23 CT Rx Instructions: 2 tabs 3 days; 1 tab 3 days; 0.5 tabs 4 days PO daily; chlorthalidone 25 MG tablet 25 mg PO DAILY ibuprofen 800 MG tablet 800 mg PO TID PRN lisinopril 20 MG tablet 20 mg PO DAILY Patient Comments: 10/16/15-on hold per PCP d/t low BP. HM allopurinol 100 MG tablet 300 mg PO DAILY aspirin [Children's Aspirin] 81 MG tablet,chewable 81 mg PO DAILY rosuvastatin [Crestor] 20 MG tablet 40 mg PO DAILY Patient Comments: metoprolol tartrate 25 MG tablet 50 mg PO BID gemfibrozil 600 MG tablet 600 mg PO BID acetaminophen [Tylenol] 325 MG tablet 650 mg PO Q6H PRN PRNQty: 30 0RF metformin 500 mg Tablet 500 mg PO DAILY Medical Decision Making Patient presenting with a few months worth of what he describes as dizziness and lightheadedness. He has been having difficulty ambulating. He reports some days are worse than others. Over the last 4 to 5 days no appetite, increased general weakness, increased dizziness and lightheadedness. Denies any pain. Neurologically nonfocal but does have rotary nystagmus with lateral gaze and general weakness. Consider possible posterior circulation stroke, metabolic or infectious etiology. Blood pressure is low and he will receive a liter bolus. Laboratory studies, urinalysis obtained. CTA head and neck ordered. Chest x-ray ordered. EKG is sinus rhythm with nonspecific ST changes nothing acute. Patient laboratory studies with a white count of 13. Hemoglobin and platelets are normal. Patient's kidney function markedly abnormal with a BUN of 74 and a creatinine of 6.7. Potassium is normal. Bicarb a little low and anion gap a little high. Liver function is normal. CTA head and neck canceled due to kidney function. Likely patient's symptoms are related to his MADONNA. CT head noncontrast unremarkable. Chest x-ray per my read without acute process. After 2 L of fluid patient's systolic pressure in the 90s. Continuing with LR at 200 an hour. Case discussed with hospitalist, Dr. Renae. Will place Aragon to monitor urine output. Stone study ordered to evaluate for potential obstruction. Procalcitonin, lactate, blood cultures obtained per hospitalist request. Lactic acid is okay. CT scan shows a large ventral hernia. Left kidney is in the pelvis but otherwise appears normal. Right kidney is in normal position without evidence of obstruction. Patient had approximately 150 mL out when Aragon placed. Fluids continue. Blood pressure systolically running between 85 and 95. Discussed with hospitalist and patient accepted to hospitalist service but will go to ICU until blood pressures improved. Lab Data Lab results reviewed: Yes I reviewed the patient's lab results. ECG Data Attestation: I personally reviewed and interpreted this ECG (s) as follows: Prior ECG tracings: not available for review Interpretation: Sinus rhythm with borderline first-degree block and left axis. Q waves inferiorly and anteriorly. Nonspecific ST changes. HPI General Mode of arrival: ambulatory. Date/Time Provider Initiated Documentation: 03/20/23 17:30. Limitations to Documentation: no limitations. Information obtained by: patient. HPI Narrative: Patient presents to ED with generalized weakness, loss of appetite over the last 4 days. Reports having dizziness and clumsiness for a couple of months. He describes sensation of spinning as well as lightheadedness and feeling faint. He denies headache. He denies chest pain or pressure. He has some worsening dyspnea on exertion over the last few months as well. Denies any abdominal pain, vomiting, diarrhea. Denies any urinary symptoms. Denies fever. Denies any focal neurologic symptoms such as vision change, speech change, focal weakness, numbness. Does report difficulty ambulating due to being off balance and weak. Related Data Home Medications Medication Instructions Recorded Confirmed allopurinol 100 mg tablet 300 mg PO DAILY 07/25/14 03/20/23 aspirin 81 mg chewable tablet 81 mg PO DAILY 07/25/14 03/20/23 (Children's Aspirin) ibuprofen 800 mg tablet 800 mg PO TID PRN 07/25/14 03/20/23 lisinopril 20 mg tablet 20 mg PO DAILY 07/25/14 03/20/23 metoprolol tartrate 25 mg tablet 50 mg PO BID 07/25/14 03/20/23 rosuvastatin 20 mg tablet (Crestor) 40 mg PO DAILY 07/25/14 03/20/23 gemfibrozil 600 mg tablet 600 mg PO BID 09/09/15 03/20/23 chlorthalidone 25 mg tablet 25 mg PO DAILY 10/16/15 03/20/23 acetaminophen 325 mg tablet 650 mg PO Q6H PRN PRN #30 tabs 02/28/18 03/20/23 (Tylenol) metformin 500 mg tablet 500 mg PO DAILY 01/09/19 03/20/23 prednisone 20 mg tablet See Rx Instructions PO DAILY #11 03/26/21 03/26/21 tabs Previous Rx's Medication Instructions Recorded acetaminophen 325 mg tablet 650 mg PO Q6H PRN PRN #30 tabs 02/28/18 (Tylenol) prednisone 20 mg tablet See Rx Instructions PO DAILY #11 03/26/21 tabs Allergies Allergy/AdvReac Type Severity Reaction Status Date / Time No Known Allergies Allergy Verified 03/20/23 17:27 General Stated Complaint: GenMedical YEHUDA: 2 Review of Systems Narrative: Per HPI PFSH All Active Problems (Updated 03/20/23 @ 21:56 by Peter Carney MD) MADONNA (acute kidney injury) (Acute) Abdominal pain (Acute) Enteritis (Acute) Incarcerated ventral hernia (Acute) Postop check (Acute) Fever (Acute) Hypokalemia (Acute) Medical History CAD (coronary artery disease) Diabetes Gout HTN (hypertension) Hypercholesterolemia Surgical History Fx tibia/fibula shaft-op incarcerated ventral hernia with small bowel resection (02/21/18) S/P CABG (coronary artery bypass graft) S/P hernia repair Social History Smoking/Tobacco Use Status: Never Smoking risk assessment performed?: Yes Alcohol Intake: current Alcohol Intake frequency: holidays/special occasions only Drug use: Never Substance use type: does not use Do you feel safe in your relationship?: No Exam Narrative Exam Narrative: Const: WDWN male in NAD. HEENT: NC/AT. Normal facial exam. Eyes: Normal conjunctiva and sclera. PERRL and EOMI with rotary nystagmus with left or right lateral gaze. Neck: Supple. Trachea midline. Lungs: Normal respiratory effort. Lungs are clear. Cor: RRR without murmur/gallop. Good radial pulses. GI: Soft. NT/ND. No guarding or rebound. Neuro: A+O x 3. Normal speech, mentation. Cranial nerves II - XII grossly intact. No focal motor deficits. No sensory deficits. Gait not tested. Ext: No C/C/E. Skin: Warm and dry without rash. Course Vital Signs Vital signs: Vital Signs Temperature 97.2 F L 03/20/23 17:19 Pulse 85 03/20/23 17:19 Respiratory Rate 18 03/20/23 17:19 Blood Pressure 69/47 L 03/20/23 17:19 Pulse Oximetry 96 03/20/23 17:19 Temperature 97.2 F L 03/20/23 17:19 Temperature Source Temporal Artery Scan 03/20/23 17:19 Pulse 85 03/20/23 17:19 Respiratory Rate 18 03/20/23 17:19 Respiratory Effort Short of Breath 03/20/23 17:26 Blood Pressure 69/47 L 03/20/23 17:19 Blood Pressure Position Sitting 03/20/23 17:19 Pulse Oximetry 96 03/20/23 17:19 Oxygen Delivery Method Room Air 03/20/23 17:19 Oxygen Flow Rate 0 03/20/23 17:19 Pain Level 0 03/20/23 17:19 PAWSS Have you Been Recently Intoxicated or Drunk Within the Last 30 days?: No Have you Ever Experienced Previous Episodes of Alcohol Withdrawal?: No Have you ever Experienced Withdrawal Seizures?: No Have you ever Experienced Delirium Tremens(DT)s?: No Have you ever undergone Alcohol Rehabilitation Treatment (i.e, inpt ot outpatient treatment programs)?: No Have you ever Experienced Blackouts?: No Have you ever Combined Alcohol with other Downers within the last 90 days?: No Have you ever Combined Alcohol with any other Substance of Abuse during the last 90 days?: No Result: 0
--- NOTE | 2023-03-20 17:36 | DI.RAD_ITS ---
Exam(s) XR CHEST 2V PA LATERAL EXAM: XR CHEST 2V PA LATERAL CLINICAL HISTORY: weakness, SOB TECHNIQUE: 2D digital imaging was performed. COMPARISON: CR PORTABLE AP CHEST, POST LINE from 02/25/2018 FINDINGS: HEART: Mildly enlarged. Status post CABG. Aorta: Not dilated. PULMONARY VASCULATURE: Normal. LUNGS: Clear. PLEURAL SPACE: No pleural effusion or pneumothorax. BONE:Sternal wires. IMPRESSION: No acute abnormality. DATA REPOSITORY: RADIATION DOSE DELIVERED:
[2023-03-20] MEDS: Lactated Ringers 1,000 ML 1000 ML IV ×2 (17:40→18:20)
[2023-03-20 17:52] LABS: Abs Immature Grans 0.06 10^3/uL (0.0-0.06); Absolute Basophil Count 0.04 10^3/uL (0.0-0.2); Absolute Eosinophil Count 0.49 10^3/uL (0.0-0.7); Absolute Monocyte Count 1.43 10^3/uL (0.1-0.8); Basophils % 0.3; Eosinophils % 3.8; HCT 46.4 % (40.0-50.0); HGB 16.3 g/dL (13.5-17.5); Immature Grans % 0.5; Lymphocytes % 12.3; MCH 31.5 pg (27.0-33.0); MCHC 35.1 % (32.0-36.0); MCV 90 fL (80-95); MPV 9.5 fL (8.0-11.0); Neutrophils % 72.1; Platelet Count 390 10^3/uL (130-400); RBC 5.17 10^6/uL (4.36-5.78); RDW 13.2 % (11.8-14.1); RDW-SD 43.7 fL
[2023-03-20 17:56] LABS: Absolute Neutrophil Count 9.37 10^3/uL (1.2-6.7)
[2023-03-20 18:15] LABS: ALT 56 U/L (16-63); AST 36 U/L (15-37); Albumin 3.9 g/dL (3.4-5.0); Alkaline Phosphatase 83 U/L (46-116); Anion Gap 19.3 mmol/L (3-11); BUN 74 mg/dL (7-18); Bilirubin, Total 0.5 mg/dL (0.2-1.0); CO2 19.7 mmol/L (21.0-32.0); Calcium 8.4 mg/dL (8.5-10.1); Chloride 97 mmol/L (98-107); Estimated GFR 8.57 (mL/min/1.73m2); Glucose 160 mg/dL (74-106); Magnesium 1.7 mg/dL (1.8-2.4); Potassium 3.8 mmol/L (3.5-5.1); Sodium 136 mmol/L (136-145); Total Protein 7.8 g/dL (6.4-8.2); Troponin I < 50 ng/L (<or=60)
--- NOTE | 2023-03-20 18:15 | DI.CT_ITS ---
Exam(s) CT HEAD WO EXAM: CT HEAD WO CLINICAL HISTORY: dizzy, nystagmus, clumsy. TECHNIQUE: Imaging Protocol: Axial computed tomography images with coronal and sagittal reformatted images were created and reviewed COMPARISON: No exams were available for comparison FINDINGS: Ventricles and Extra axial spaces: Normal in size and morphology for the patient's age. Hemorrhage: None. Cerebral parenchyma: Normal for age. Midline shift: None. Brainstem/Cerebellum: Normal. Calvarium: Normal. Visualized Paranasal sinuses/Mastoids: Clear. Soft Tissues: Unremarkable. IMPRESSION: No acute intracranial process. RADIATION DOSE DELIVERED: 808.01mGy.cm Total DLP DATA REPOSITORY: All CT scans at this facility are submitted to the National Radiology Data Registry (NRDR) Dose Index Registry (DIR) with the [employer] (A[employer]). RADIATION OPTIMIZATION: All CT scans at this facility use at least one of these dose optimization te chniques: automated exposure control; mA and/or kV adjustment per patient size (includes targeted exa ms where dose is matched to clinical indication); or iterative reconstruction.
[2023-03-20 18:17] LABS: CREATININE 6.7 mg/dL (0.70-1.30)
--- NOTE | 2023-03-20 18:50 | DI.VRAD_ITS ---
PROCEDURE INFORMATION: Exam: CT Head Without Contrast Exam date and time: 03/20/2023 6:25 PM Age: 63 years old Clinical indication: Dizziness and other: Dizzy, nystagmus, clumsy TECHNIQUE: Imaging protocol: Computed tomography of the head without contrast. COMPARISON: No relevant prior studies available. FINDINGS: Brain: There is mild diffuse heterogeneity of the white matter attenuation, consistent with chronic white matter microangiopathic ischemic changes. There is mild diffuse cerebral atrophy present. There is no evidence of intracranial hemorrhage. There is no evidence of acute intracranial injury or other pathologic process. There is no evidence of an acute ischemic event. Cerebral ventricles: The ventricular system demonstrates mild diffuse compensatory enlargement. Paranasal sinuses: WeThere is no evidence of fluid levels, mucoperiosteal thickening, or opacification to suggest acute or chronic sinusitis. Mastoid air cells: The mastoid aircells are normal. Orbital cavities: The orbits are normal without evidence of fracture. There is no evidence of retro-bulbar hemorrhage. There is no evidence of globe or lens injury. Bones/joints: The bony cranium shows no evidence of injury or other acute pathologic processes. Soft tissues: The extracranial soft tissues are normal. Vasculature: Low-attenuation area at the level of the right transverse sinus measuring 9 x 6 mm is artifactual and secondary to volume averaging with the adjacent extra-axial CSF. IMPRESSION: 1. No evidence of an acute intracranial abnormality. 2. There is mild age-related atrophy and chronic white matter ischemic changes, with compensatory ventricular dilation. 3. Low-attenuation area at the level of the right transverse sinus measuring 9 x 6 mm is artifactual and secondary to volume averaging with the adjacent extra-axial CSF. Dictated and Authenticated by: Alan Garcia MD. Ordering:FRANK Green MD
--- NOTE | 2023-03-20 18:51 | DI.VRAD_ITS ---
PROCEDURE INFORMATION: Exam: XR Chest Exam date and time: 03/20/2023 6:36 PM Age: 63 years old Clinical indication: Shortness of breath and other: Weakness; Prior surgery; Surgery date: 6+ months; Surgery type: Heart; Patient HX: Weakness, SOB TECHNIQUE: Imaging protocol: Radiologic exam of the chest. Views: 2 views. COMPARISON: SC PORTABLE AP CHEST, POST LINE 02/25/2018 5:08 PM FINDINGS: Lungs: There is diffuse mild nonspecific prominence of the pulmonary interstitium. Pleural spaces: There is no evidence of pneumothorax. There are no pleural effusions present. Heart/Mediastinum: There is moderate cardiomegaly. Bones/joints: Sternotomy wires and mediastinal surgical clips are present, consistent with previous coronary arterial bypass grafting. The skeletal structures and soft tissues show no evidence of fracture or other acute processes. Soft tissues: The soft tissues of the extrathoracic region are unremarkable. IMPRESSION: No definitive active cardiopulmonary disease. Patient is status post coronary artery bypass graft. Dictated and Authenticated by: Alan Garcia MD. Ordering:FRANK Green MD
[2023-03-20 19:50] LABS: Anion Gap 15.1 mmol/L (3-11); BUN 75 mg/dL (7-18); CO2 21.9 mmol/L (21.0-32.0); Chloride 100 mmol/L (98-107); Estimated GFR 9.23 (mL/min/1.73m2); Glucose 191 mg/dL (74-106); Potassium 4.7 mmol/L (3.5-5.1); Sodium 137 mmol/L (136-145)
[2023-03-20 19:54] LABS: CREATININE 6.3 mg/dL (0.70-1.30)
--- NOTE | 2023-03-20 20:00 | DI.CT_ITS ---
Exam(s) CT RENAL COLIC WO EXAM: CT RENAL COLIC WO CLINICAL HISTORY: MADONNA. TECHNIQUE: Imaging Protocol: Axial computed tomography images with coronal and sagittal reformatted images were created and reviewed. CONTRAST MATERIAL: Noncontrast COMPARISON: CT CT ABDOMEN PELVIS W from 01/09/2019 FINDINGS: ABDOMEN: Lung Bases: Mild dependent changes. Sternal wires. Liver: Normal attenuation. No measurable mass. Gallbladder and biliary tract: No radiodense calculus or dilation. Pancreas: Normal density, no calcifications or inflammatory process. Spleen: Normal. Kidneys: Left pelvic kidney. No radiodense stones or obstructive uropathy. No masses seen. Adrenal glands: No masses seen. Abdominal Aorta: Abdominal portion non-dilated. Soft tissues: Marked dehiscence of the anterior abdominal wall again noted. PELVIS: Bladder: Aragon catheter. No evidence of stones.No visible mass. Bowel: No obstruction or bowel wall thickening. Reproductive: Unremarkable. Peritoneal cavity: No ascites, collection or mesenteric inflammatory response. Bones: Unremarkable for age.. IMPRESSION: No acute abnormality. RADIATION DOSE DELIVERED: 1,269.15mGy.cm Total DLP DATA REPOSITORY: All CT scans at this facility are submitted to the National Radiology Data Registry (NRDR) Dose Index Registry (DIR) with the [employer] (ACR). RADIATION OPTIMIZATION: All CT scans at this facility use at least one of these dose optimization te chniques: automated exposure control; mA and/or kV adjustment per patient size (includes targeted exa ms where dose is matched to clinical indication); or iterative reconstruction.
[2023-03-20 21:03] LABS: Lactate 2.3 mmol/L (0.6-1.4)
[2023-03-20 21:07] LABS: Bilirubin Small (Negative); Blood Small (Negative); Clarity Clear (Clear); Glucose Negative (Negative); Ketones Trace mg/dL (Negative); Leukocyte Esterase Negative (Negative); Nitrite Negative (Negative); Specific Gravity 1.025 (1.005-1.025); Urobilinogen 0.2 mg/dL (Up to 0.2)
[2023-03-20 21:16] LABS: Bacteria Rare HPF (Negative); C & S Indicated? No; Casts 0-2 Hyaline LPF (Negative); Crystals Negative HPF (Negative); Epithelial Cells Rare HPF (Negative); Mucus Negative (Negative); WBC Negative HPF (0-5)
--- NOTE | 2023-03-20 21:44 | DI.VRAD_ITS ---
PROCEDURE INFORMATION: Exam: CT Abdomen And Pelvis Without Contrast Exam date and time: 03/20/2023 9:16 PM Age: 63 years old Clinical indication: Other: [place] TECHNIQUE: Imaging protocol: Computed tomography of the abdomen and pelvis without contrast. COMPARISON: CT ABDOMEN PELVIS W 01/09/2019 7:35 AM FINDINGS: Tubes, catheters and devices: There are sternal wires consistent with previous sternotomy incision. Lungs: There is mild heterogeneous attenuation of the pulmonary parenchyma, consistent with mild air trapping from underlying small airways disease. There is minimal bibasilar atelectasis. Pleural spaces: There is no evidence of pneumothorax. There are no pleural effusions present. Coronary arteries: There is moderate atherosclerotic calcification of the coronary arteries. Diaphragm: Small hiatal hernia containing only fat mesentery. Liver: There are no focal liver lesions present. There is no evidence of intrahepatic or extrahepatic biliary ductal dilation. The liver is enlarged. Gallbladder and bile ducts: The gallbladder is normal. There is no cholelitiasis, wall thickening or pericholecystic fluid to suggest cholecystitis. Pancreas: There is moderate pancreatic atrophy and fatty replacement. Spleen: The spleen is enlarged but otherwise normal. Adrenal glands: The left adrenal gland is surgically absent. The right adrenal gland is normal. Kidneys and ureters: The right kidney is normal. There is a left pelvic kidney present within the left hemipelvis that appears unremarkable. 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 Stomach and bowel: Unremarkable. No obstruction. No mucosal thickening. Appendix: There is no evidence of appendicitis. Intraperitoneal space: There is no free intraperitoneal air. There is no evidence of free intraperitoneal or pelvic fluid. Vasculature: The aorta demonstrates mild atherosclerotic calcification. The arterial peripheral vasculature demonstrates diffuse mild atherosclerotic calcification. Lymph nodes: There is no evidence of lymphadenopathy. Urinary bladder: The bladder is decompressed by a Aragon catheter but is otherwise normal. There is a small amount of urinary bladder intraluminal air consistent with instrumentation. Reproductive: Unremarkable as visualized. Bones/joints: Unremarkable. No acute fracture. Soft tissues: There is a large area of abdominal wall laxity with a defect of approximately 14 cm in diameter. There is a large amount of colonic and small bowel loops within the anterior abdominal wall hernia sac without evidence of obstruction. IMPRESSION: 1. There is mild heterogeneous attenuation of the pulmonary parenchyma, consistent with mild air trapping from underlying small airways disease. 2. 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 3. No definitive explanation for patient's current clinical presentation elicited on this study. Dictated and Authenticated by: Alan Garcia MD. Ordering:FRANK Green MD
[2023-03-20 21:56] LABS: Procalcitonin 0.4 ng/mL
--- NOTE | 2023-03-20 22:01 | W.PM.HP.N ---
Date of service: 03/20/23 Time of Service: 22:01 Assessment and Plan Assessment and plan (1) MADONNA (acute kidney injury): Status: Acute Assessment and plan: In setting of hypotension, dehydration, suspected infection, though without obvious source (infection is suspected based on the leucocytosis and a borderline elevated procalcitonin). Will obtain FeUrea. Treat with IV hydration, empiric ceftriaxone while awaiting blood cultures. May require vasopressor support. Hold nephrotoxic medications, includings NSAIDs, chlorthalidone, lisinopril. No evidence of obstructive uropathy on CT. Despite the CT read, the patient does NOT have a kidney transplant. Monitor UOP, Cr. (2) Dehydration: Assessment and plan: As above (3) Hypotension: Assessment and plan: As above (4) Sepsis: Assessment and plan: ? source (5) Near syncope: Assessment and plan: Hydrate Hold antihypertensives Obtain an echo. Cardiac monitoring (6) Generalized weakness: Assessment and plan: Hydrate. replete magnesium. PT consult (7) DVT prophylaxis: Assessment and plan: SC heparin (8) Discharge planning issues: Assessment and plan: Full code Admit to the ICU. Total Critical Care Time 60 minutes. History of Present Illness History of Present Illness Chief Complaint: I was weak and dizzy and I fell today. Narrative: Mr Alex is a 63 year old male with PMHx of CAD s/p CABG, NIDDM2, hypertension, hyperlipidemia, obesity with BMI of 33 kg/m2, who presented to [facility] ED c/o weakness and dizziness on and off for 2-3 months, accompanied by a poor appetite, lower endurance. When talking about dizziness, he specifically means the feeling like he is going to faint and episodes where he is near fainting which typically happen with chance of position from sitting to standing and get better when he sits down. This got especially bad in the last week, and today the patient had an episode where he felt like he was about to faint and actually fell, but was cought by his and did not hurt himself. He described feeling palpitations and short of breath at the time, but denies sweats, chest pain, nausea. His appetite and PO intake have been poor over the last 4-5 days, although the patient states he has still been drinking water. Denies abdominal pain, diarrhea, constipation, fevers/chills, weight loss. He does describe occasional chest pains, last a few weeks ago, which feel just like when I had the blockage before the surgery. He states his muscles have been hurting and he has had no strength. States he has been urinating more than normal, which is twice a day for him. He denies urinary hesitancy, urgency, dysuria. In the ED, the patient was found to be hypotensive with a BP of 69/47. After receiving 2 L of LR, it did improve to SBP in the 80s. On insertion of martinez catheter, 150 cc of urine came out (after 2 L of IV hydration). 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 CT head was obtained due to c/o dizziness as well as findings of a horizontal nystagmus in the ED - the study was negative. Hospitalist admission was requested. Because the patient does have evidence of a leucocytosis, a borderline procalcitonin, and an elevated lactate, empiric ceftriaxone is being initiated. His UA and CXR are negative; blood cultures are pending. Review of Systems All systems reviewed & are unremarkable except as noted in HPI and below PFSH All Active Problems (Updated 03/20/23 @ 21:56 by Peter Carney MD) MADONNA (acute kidney injury) (Acute) Abdominal pain (Acute) Enteritis (Acute) Incarcerated ventral hernia (Acute) Postop check (Acute) Fever (Acute) Hypokalemia (Acute) Medical History CAD (coronary artery disease) Diabetes Gout HTN (hypertension) Hypercholesterolemia Surgical History Fx tibia/fibula shaft-op incarcerated ventral hernia with small bowel resection (02/21/18) S/P CABG (coronary artery bypass graft) S/P hernia repair Family History (Updated 03/21/23 @ 00:37 by Lesley Renae MD) Other Breast cancer Social History (Updated 03/21/23 @ 00:38 by Lesley Renae MD) Smoking/Tobacco Use Status: Never Smoking risk assessment performed?: Yes Alcohol Intake: current Alcohol Intake frequency: a few times a week Alcohol type: beer Drug use: Never Substance use type: does not use Do you feel safe in your relationship?: No Meds Allergies and Home Medications Allergies Allergy/AdvReac Type Severity Reaction Status Date / Time No Known Allergies Allergy Verified 03/20/23 17:27 Home Medications Medication Instructions Recorded Confirmed Type allopurinol 100 mg tablet 300 mg PO DAILY 07/25/14 03/20/23 History aspirin 81 mg chewable tablet 81 mg PO DAILY 07/25/14 03/20/23 History (Children's Aspirin) ibuprofen 800 mg tablet 800 mg PO TID PRN 07/25/14 03/20/23 History lisinopril 20 mg tablet 20 mg PO DAILY 07/25/14 03/20/23 History metoprolol tartrate 25 mg tablet 50 mg PO BID 07/25/14 03/20/23 History rosuvastatin 20 mg tablet (Crestor) 40 mg PO DAILY 07/25/14 03/20/23 History gemfibrozil 600 mg tablet 600 mg PO BID 09/09/15 03/20/23 History chlorthalidone 25 mg tablet 25 mg PO DAILY 10/16/15 03/20/23 History acetaminophen 325 mg tablet 650 mg PO Q6H PRN PRN #30 tabs 02/28/18 03/20/23 Rx (Tylenol) metformin 500 mg tablet 500 mg PO DAILY 01/09/19 03/20/23 History Exam Narrative Exam Narrative: General: Pleasant middle-aged male who is A&Ox3, appears comfortable in bed, does not look ill Neurological: A&Ox3, no focal deficits Psychiatric: Appropriate speech pattern/content Skin: Visible skin intact HEENT: Atraumatic, normocephalic, EOMI, dry MM, clear oropharynx, no submandibular or cervical lymphadenopathy, no goiter or JVD Cardiovascular: RRR, no m/r/g Lungs: CTAB Gastrointestinal: soft, large ventral hernia, nontender Genitourinary: has a martinez - concentrated urine in bag; hospice art therapist colored urine in the tubing Extremities: no edema BLEs, 1+ pedal pulses B, no c/c, no lesions on B feet Results Imaging Additional studies: CT head: 1. ? No evidence of an acute intracranial abnormality. 2. ? There is mild age-related atrophy and chronic white matter ischemic changes, with compensatory ventricular dilation. 3. ? Low-attenuation area at the level of the right transverse sinus measuring 9 x 6 mm is artifactual and secondary to volume averaging with the adjacent extra-axial CSF. CXR: No definitive active cardiopulmonary disease.? Patient is status post coronary artery bypass graft. CT renal: 1. ? There is mild heterogeneous attenuation of the pulmonary parenchyma, consistent with mild air trapping from underlying small airways disease. 2. ? 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 This appears to be the patient's [facility] kidney. 3. ? No definitive explanation for patient's current clinical presentation elicited on this study. EKG: HR 81, NSR, no acute ischemia, old inferior infarct. Labs 03/20/23 17:40 03/20/23 18:25 Labs: Laboratory Results - last 24 hr 03/20/23 03/20/23 03/20/23 17:40 17:40 18:25 WBC 13.00 H RBC 5.17 Hgb 16.3 Hct 46.4 MCV 90 MCH 31.5 MCHC 35.1 RDW 13.2 Plt Count 390 MPV 9.5 Immature Gran % 0.5 Neutrophils % 72.1 Lymphocytes % 12.3 Monocytes % 11.0 Eosinophils % 3.8 Basophils % 0.3 Nucleated RBC % 0.0 Absolute Neutrophils 9.37 H Absolute Lymphocytes 1.60 Absolute Monocytes 1.43 H Absolute Eosinophils 0.49 Absolute Basophils 0.04 VBG Lactate Sodium 136 137 Potassium 3.8 4.7 Chloride 97 L 100 Carbon Dioxide 19.7 L 21.9 Anion Gap 19.3 H 15.1 H BUN 74 H 75 H Creatinine 6.7 H* 6.3 H* Est GFR (CKD-EPI 2020) 8.57 9.23 Glucose 160 H 191 H Calcium 8.4 L 8.0 L Magnesium 1.7 L Total Bilirubin 0.5 AST 36 ALT 56 Alkaline Phosphatase 83 Troponin I < 50 Total Protein 7.8 Albumin 3.9 Procalcitonin Urine Color Urine Clarity Urine pH Ur Specific Shiro Urine Protein Urine Ketones Urine Blood Urine Nitrite Urine Bilirubin Urine Urobilinogen Ur Leukocyte Esterase Urine RBC Urine WBC Ur Epithelial Cells Urine Crystals Urine Bacteria Urine Casts Urine Mucus Ur Culture Indicated? Urine Glucose 03/20/23 03/20/23 20:35 20:40 WBC RBC Hgb Hct MCV MCH MCHC RDW Plt Count MPV Immature Gran % Neutrophils % Lymphocytes % Monocytes % Eosinophils % Basophils % Nucleated RBC % Absolute Neutrophils Absolute Lymphocytes Absolute Monocytes Absolute Eosinophils Absolute Basophils VBG Lactate 2.3 H* Sodium Potassium Chloride Carbon Dioxide Anion Gap BUN Creatinine Est GFR (CKD-EPI 2020) Glucose Calcium Magnesium Total Bilirubin AST ALT Alkaline Phosphatase Troponin I Total Protein Albumin Procalcitonin 0.4 Urine Color Yellow Urine Clarity Clear Urine pH 5.0 Ur Specific Shiro 1.025 Urine Protein >=300 H Urine Ketones Trace H Urine Blood Small H Urine Nitrite Negative Urine Bilirubin Small H Urine Urobilinogen 0.2 Ur Leukocyte Esterase Negative Urine RBC 3-5 H Urine WBC Negative Ur Epithelial Cells Rare Urine Crystals Negative Urine Bacteria Rare Urine Casts 0-2 Hyaline Urine Mucus Negative Ur Culture Indicated? No Urine Glucose Negative Last Vital Signs Temp 36.2 C L 03/20/23 17:19 Pulse 75 03/20/23 21:45 Resp 19 03/20/23 21:50 BP 82/46 L 03/20/23 21:45 Pulse Ox 95 03/20/23 21:50 PAWSS Have you Been Recently Intoxicated or Drunk Within the Last 30 days?: No Have you Ever Experienced Previous Episodes of Alcohol Withdrawal?: No Have you ever Experienced Withdrawal Seizures?: No Have you ever Experienced Delirium Tremens(DT)s?: No Have you ever undergone Alcohol Rehabilitation Treatment (i.e, inpt ot outpatient treatment programs)?: No Have you ever Experienced Blackouts?: No Have you ever Combined Alcohol with other Downers within the last 90 days?: No Have you ever Combined Alcohol with any other Substance of Abuse during the last 90 days?: No Result: 0 Time Spent Time spent with Patient: 55-74 minutes Time was spent: preparing to see the patient(eg.review tests), obtaining and/or reviewing separately otained hiistory, ordering medications,tests, procedures, referring, communicating with other health customer care consultant, indepentently interpreting results, counseling the patient and care coordination
[2023-03-20 22:06] LABS: Lab Add On Test DONE
[2023-03-20 22:29] LABS: Creatine Kinase 172 U/L (39-308); FREE T4 0.88 ng/dL (0.76-1.46); TSH 0.61 uIU/mL (0.36-3.74); Uric Acid 8.7 mg/dL (3.5-7.2)
[2023-03-20] MEDS: cefTRIAXone 2 GM/50 ML BAG IVPB (22:55)
[2023-03-21] VITALS (96 sets, daily range): BP systolic 82–143; BP diastolic 48–97; PULSE 49–96; RESP 10–26; TEMP 36.5–37.1; O2SAT 91–99
[2023-03-21 00:29] LABS: Lactate 1.8 mmol/L (0.6-1.4)
[2023-03-21] MEDS: Heparin 5,000 UNITS/ML VIAL 5000 UNITS SC ×4 (00:29→21:49)
[2023-03-21] MEDS: Normal Saline Flush 10 ML SYR IVP (00:30)
[2023-03-21] MEDS: MAGNESIUM SULFATE 1 GM/100 ML BAG IVPB (01:26)
[2023-03-21 02:17] LABS: Creatinine,Urine 245.88 mg/dL
[2023-03-21] MEDS: Norepinephrine in D5W 8 MG/250 ML BAG 9.375 MG IV (02:34)
[2023-03-21] MEDS: Lactated Ringers 1,000 ML 200 ML IV (04:24)
[2023-03-21 06:04] LABS: Lactate 1.1 mmol/L (0.6-1.4)
[2023-03-21 06:12] LABS: Abs Immature Grans 0.04 10^3/uL (0.0-0.06); Absolute Basophil Count 0.04 10^3/uL (0.0-0.2); Absolute Eosinophil Count 0.39 10^3/uL (0.0-0.7); Absolute Lymphocyte Count 1.53 10^3/uL (1.2-3.4); Absolute Monocyte Count 0.94 10^3/uL (0.1-0.8); Absolute Neutrophil Count 6.56 10^3/uL (1.2-6.7); Basophils % 0.4; Eosinophils % 4.1; HCT 40.3 % (40.0-50.0); HGB 14.1 g/dL (13.5-17.5); Immature Grans % 0.4; Lymphocytes % 16.1; MCH 31.3 pg (27.0-33.0); MCV 90 fL (80-95); MPV 9.4 fL (8.0-11.0); Monocytes % 9.9; Neutrophils % 69.1; Platelet Count 333 10^3/uL (130-400); RDW 13.2 % (11.8-14.1); RDW-SD 43.3 fL
[2023-03-21 06:27] LABS: C-Reactive Protein 1.14 mg/dL (0.0-0.3)
[2023-03-21 06:28] LABS: Anion Gap 15.5 mmol/L (3-11); BUN 69 mg/dL (7-18); CO2 19.5 mmol/L (21.0-32.0); Calcium 7.9 mg/dL (8.5-10.1); Chloride 102 mmol/L (98-107); Estimated GFR 13.46 (mL/min/1.73m2); Glucose 181 mg/dL (74-106); Magnesium 1.7 mg/dL (1.8-2.4); Potassium 3.6 mmol/L (3.5-5.1); Sodium 137 mmol/L (136-145)
[2023-03-21 06:29] LABS: CREATININE 4.6 mg/dL (0.70-1.30)
--- NOTE | 2023-03-21 08:03 | IN_ITS ---
PT Notes Visit Reasons: MADONNA, hypotension, dehydration Inpatient Physical Therapy Evaluation Date: 03/21/23 Referring Doctor: Dr. Renae PT Orders: PT CONSULT: limited ability to ambulate Precautions: fall, standard Patient Profile/Admitting Diagnosis: Patient admitted 03/20/23 due to MADONNA in the presence of?hypotension, dehydration, suspected infection, without obvious source. Home Medications ?Medication ?Instructions ?Recorded ?Confirmed ?Type allopurinol 100 mg tablet 300 mg PO DAILY 07/25/14 03/20/23 History aspirin 81 mg chewable tablet 81 mg PO DAILY 07/25/14 03/20/23 History (Children's Aspirin) ? ibuprofen 800 mg tablet 800 mg PO TID PRN 07/25/14 03/20/23 History lisinopril 20 mg tablet 20 mg PO DAILY 07/25/14 03/20/23 History metoprolol tartrate 25 mg tablet 50 mg PO BID 07/25/14 03/20/23 History rosuvastatin 20 mg tablet (Crestor) 40 mg PO DAILY 07/25/14 03/20/23 History gemfibrozil 600 mg tablet 600 mg PO BID 09/09/15 03/20/23 History chlorthalidone 25 mg tablet 25 mg PO DAILY 10/16/15 03/20/23 History acetaminophen 325 mg tablet 650 mg PO Q6H PRN PRN #30 tabs 02/28/18 03/20/23 Rx (Tylenol) ? metformin 500 mg tablet 500 mg PO DAILY 01/09/19 03/20/23 History Social History/Home Situation: Lives in a private home with 3 ERIC. 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 Independent at baseline, without AD. Cares for his 16 year old granddaughter, whom he adopted. Equipment Owned/DME: none Subjective: Amor states that he is feeling better this morning. He has had several days of dizziness and imbalance. Yesterday he states that he passed out, striking his left knee. He has some stiffness there, although nothing severe. Admits to increasing difficulty getting around for the past several weeks. Attributes much of this to his declining vision. Reports double vision, floa ters. Scheduled for cataract surgery 04/06. Additionally admits to balance impairments since January. He's had previous falls on the stairs, although none otherwise. States that his left side has been weak for a while. Objective: General Observation: Resting in bed with multiple lines. IV in bilat UEs, Aragon catheter, SaO2 monitor right hand, telemetry. Mental Status: A&Ox3. Pain: mild left knee pain with flexion/extension ROM: Right Upper Extremity: WFL Left Upper Extremity: WFL Right Lower Extremity: WFL Left Lower Extremity: WFL Strength: Right Upper Extremity: Shoulder flexion 4+/5, AB 4/5, biceps 5/5. Left Upper Extremity: Shoulder flexion 3+/5. AB 3/5. Biceps 4/5. Right Lower Extremity: Hip flexion 5/5. Quads 5/5. Ankle DF 5/5. Left Lower Extremity: Hip flexion 4-/5. Quads 3/5. Ankle DF 3+/5. Bed Mobility/Transfers: supine-sit: independent with HOB at 20*, increased time to perform, with heavy reliance on UE support sit-stand: supervision, with wide BLANCA and reports of dizziness x 15 seconds Gait: ambulates with FWW, wide BLANCA, flat feet through all phases of gait. Ambulates 5' x 2 with CGA, cues for equipment management. Balance: Static Sitting: normal Dynamic Sitting: good Static Standing: fair Dynamic Standing: fair 4-Position Balance Test: 0/4 Special Tests: Fine motor: diminished with thumb to digit tapping Coordination: decreased accuracy with alternating toe taps and forearm pronation/supination Rhomberg: (+) Mobility Limitations Standardized Measure [facility] AM-PAC 6 clicks Basic Mobility Inpatient Short Form: Raw Score: 18 CMS Score: 47% impairment Informed Consent/Education: Patient instructed in purpose of PT consult and plan of care. Assessment: Patient is a 63 year old male referred to physical therapy services with the diagnosis of limited mobility during acute care stay for management of MADONNA. Patient presents with clinical signs and symptoms consistent with diagnosis, with concerning symptoms of imbalance, limited fine motor and coordination, visual changes, and diffuse left-sided weakness. Relayed concerns to medical team. Discharge planning will be largely dependent on progress as patient medically stabilizes. Will continue monitoring symptoms, although anticipate he will be safe to return home with PT once medically stable. Will require skilled PT intervention during his acute care stay to maximize safety and mobility prior to transition home. He currently demonstrates the following impairment level findings: 1. Decreased standing balance 2. decreased activity tolerance 3. decreased dynamic balance, requiring use of FWW for ambulation 4. decreased LE strength L>R 5. decreased fine motor 6. decreased coordination Impairments are contributing to the following functional limitations: 1. unable to ambulate household distances without AD 2. unable to manage stairs 3. increased time to perform bed mobility 4. unable to tolerate community distance ambulation Patient is assessed as Moderate [id number] complexity based on the following: History: Patient presenting with mobility impairments during acute hospitaliza tion for management of MADONNA in the presence of ?hypotension, dehydration, suspected infection, though without obvious source. Examination: functional limitations as above Presentation: evolving due to acute illness Decision Making: moderate complexity Goals: Goals X1 week 1. Supine-Sit : independent 2. Sit-Supine : independent 3. Sit-Stand : supervision 4. Stand-Sit supervision 5. Bed-Chair : supervision without AD 6. Chair-Bed : supervision without AD 7. Gait : Able to ambulate 50' without AD 8. Stairs : able to manage 5 steps with single rail, supervision only 9. Independent with home exercise program Plan of Care/Treatment Plan: 1-2x/day, 7 days/week x 1 week. Plan of care has been reviewed with the UPFITTER providing the service under Physical Therapy direction. Initiate Physical Therapy intervention for strengthening, bed mobility, transfers, gait, stairs, balance training, use of assistive device. DISCHARGE RECOMMENDATIONS: Home with PT TREATMENT CODE/TIME: 8:05 - 8:15; 8:35-8:50 ([id number]) Ghada Hernandez, PT, DPT [facility] All Active Problems (Updated 03/20/23 @ 21:56 by Peter Carney MD) MADONNA (acute kidney injury) (Acute) Abdominal pain (Acute) Enteritis (Acute) Incarcerated ventral hernia (Acute) Postop check (Acute) Fever (Acute) Hypokalemia (Acute) Medical History CAD (coronary artery disease) Diabetes Gout HTN (hypertension) Hypercholesterolemia Surgical History Fx tibia/fibula shaft-op incarcerated ventral hernia with small bowel resection (02/21/18) S/P CABG (coronary artery bypass graft) S/P hernia repair
[2023-03-21] MEDS: Lactated Ringers 1,000 ML 125 ML IV (09:00)
[2023-03-21] MEDS: Allopurinol 100 MG TAB 300 MG PO (09:04)
[2023-03-21] MEDS: Aspirin 81 MG CHEW PO (09:04)
[2023-03-21] MEDS: Insulin Aspart 300 UNITS/3 ML PEN SC ×3 (09:08→21:57)
--- NOTE | 2023-03-21 09:17 | PHA.REVIEW2 ---
Pharmacy Admission Review Admission Clinical Review Admission Pharmacy Review: (Updated 03/20/23 @ 21:56 by Peter Carney MD) MADONNA (acute kidney injury) (Acute) No Known Allergies Allergy (Verified 03/20/23 17:27) Resuscitation Status Full Code Height 5 ft 10 in Weight 92.1 kg Comments Comments/Follow Ups: Afebrile, soft BP's, started Norepi infusion being titrated (Current BP 114/71), WBC down, Blood cultures pending, Procal 0.4 (Empiric Ceftriaxone) MRI/renal and head CT ordered (negative) Pharmacy Admission Review Renal Dosing Renal Dosing: BUN 69 mg/dL (7-18) H 03/21/23 05:46 Creatinine 4.6 mg/dL (0.70-1.30) H* 03/21/23 05:46 CrCl~18.5ml/min SCr 3.7 on admission, improving Medications needing adjustments: Intervened (Allopurinol renal dose adjustment recommended from 300mg daily to 50mg every other day) List of meds needing interventions: Hold Lisinopril, Chlorthalidone, NSAIDS Anticoagulation Anticoagulation: Hgb 14.1 g/dL (13.5-17.5) D 03/21/23 05:46 Hct 40.3 % (40.0-50.0) 03/21/23 05:46 Plt Count 333 10^3/uL (130-400) 03/21/23 05:46 Creatinine 4.6 mg/dL (0.70-1.30) H* 03/21/23 05:46 DVT Prophylaxis: Reviewed Medications: Heparin Relevant Labs Relevant Labs: Sodium 137 mmol/L (136-145) 03/21/23 05:46 Potassium 3.6 mmol/L (3.5-5.1) D 03/21/23 05:46 Chloride 102 mmol/L (98-107) 03/21/23 05:46 Magnesium 1.7 mg/dL (1.8-2.4) L 03/21/23 05:46 C-Reactive Protein 1.14 mg/dL (0.0-0.3) H 03/21/23 05:46 Rec'd Magnesium 1gram IV x1~0130 03/21/23 DM Control Insulin Dosing: Reviewed (Novolog scale, FSBS 187, BG 181) Cardiac Review Cardiac Review: Troponin I < 50 ng/L (<or=60) 03/20/23 17:40 Home Meds Home Med List reviewed: Reviewed Relevent Home Meds Not ordered & why?: Holding Nephrotoxic meds, Metformin (Aspart coverage for NIDDM type2), Gemfibrozil & Rosuvastatin-not needed right now, weakness & fatigue, Metoprolol held for hypotension, Ibuprofen-avoid MADONNA Pharmacy Antibiotic Review Relevant Labs: Relevant Labs 03/21/23 03/20/23 05:46 20:40 C-Reactive Protein 1.14 H Procalcitonin 0.4 Pharmacy Antibiotic Activity: Reviewed, no change Comments: Empiric Rocephin, BC pending for possible sepsis, trend Procal Comments Comments/Follow Ups: Afebrile, soft BP's, started Norepi infusion being titrated (Current BP 114/71), WBC down, Blood cultures pending, Procal 0.4 (Empiric Ceftriaxone) MRI/renal and head CT ordered (negative)
--- NOTE | 2023-03-21 10:45 | INITIAL_ITS ---
Date of service: 03/21/23 Time of Service: 11:05 Care Management Initial Assmt Initial Assessment REASON FOR HOSPITALIZATION:: MADONNA, Hypotension, dehydration PREVIOUS FUNCTIONAL STATUS/SOCIAL/FAMILY SUPPORTS:: Jas resides with his Noreen in [place]. He previously worked for a [employer] out of [place], [place] and is independent with his own ADL's. CURRENT FUNCTIONAL STATUS:: Remains in ICU, now M/S status. ADVANCE DIRECTIVES:: None on file. Has patient been provided with info about the portal/API?: No Did the patient sign up for the portal?: No CODE STATUS:: Full Code INSURANCE COVERAGE / FINANCIAL ISSUES:: Medicaid PRIMARY CARE PHYSICIAN:: Accessing [facility] POTENTIAL DISCHARGE NEEDS:: Evaluations for additional services. PATIENT/FAMILY EDUCATION NEEDS:: Review discharge instructions, discuss Ask Me Three TRANSPORTATION:: Via private vehicle with Noreen PLAN:: Anticipate Jas will continue work-up for various symptoms. Anticipate he will return home when ready per MD, unless further evaluation results in additional service recommendations. He will transport via private vehicle with his , Noreen. PFSH All Active Problems (Updated 03/20/23 @ 21:56 by Peter Carney MD) MADONNA (acute kidney injury) (Acute) Abdominal pain (Acute) Enteritis (Acute) Incarcerated ventral hernia (Acute) Postop check (Acute) Fever (Acute) Hypokalemia (Acute) Medical History CAD (coronary artery disease) Diabetes Gout HTN (hypertension) Hypercholesterolemia Surgical History Fx tibia/fibula shaft-op incarcerated ventral hernia with small bowel resection (02/21/18) S/P CABG (coronary artery bypass graft) S/P hernia repair Family History (Updated 03/21/23 @ 00:37 by Lesley Renae MD) Other Breast cancer Social History (Updated 03/21/23 @ 00:38 by Lesley Renae MD) Smoking/Tobacco Use Status: Never Smoking risk assessment performed?: Yes Alcohol Intake: current Alcohol Intake frequency: a few times a week Alcohol type: beer Drug use: Never Substance use type: does not use Do you feel safe in your relationship?: No
[2023-03-21] MEDS: Acetaminophen 325 MG TAB PO ×2 (11:49→18:18)
--- NOTE | 2023-03-21 15:25 | W.PM.PROGNOT ---
Date of Service Date of service: 03/21/23 Time of Service: 15:25 Assessment and Plan Assessment and plan (1) MADONNA (acute kidney injury): Status: Acute Assessment and plan: In setting of hypotension, dehydration, suspected infection, though without obvious source (infection is suspected based on the leucocytosis and a borderline elevated procalcitonin). Improving. FeUrea; pending. Treat with IV hydration, empiric ceftriaxone while awaiting blood cultures. Norepinephrine overnight and into early this AM; now off. Hold nephrotoxic medications, includings NSAIDs, chlorthalidone, lisinopril. No evidence of obstructive uropathy on CT. Despite the CT read, the patient does NOT have a kidney transplant. Monitor UOP, Cr. (2) Dehydration: Assessment and plan: As above (3) Hypotension: Assessment and plan: As above (4) Sepsis: Assessment and plan: ? source (5) Near syncope: Assessment and plan: Hydrate Hold antihypertensives Obtain an echo. Cardiac monitoring (6) Generalized weakness: Assessment and plan: + Rhomberg and left sided weakness. Questionable cerebellar stroke not evident on initial CT MRI on Wednesday, 03/22. Hydrate. replete magnesium. PT consult (7) DVT prophylaxis: Assessment and plan: SC heparin (8) Discharge planning issues: Assessment and plan: Full code Admitted to the ICU. Now med-surg status. Subjective Subjective Patient reports: no new complaints, tolerating a regular diet and afebrile; denies nausea, vomiting or shortness of breath Interval history since last seen: No current vertigo or presyncope Exam Narrative Exam Narrative: General: Pleasant middle-aged male sitting upright in bed. Nontoxic appearing. Conversant. HEENT: MMM, sclera clear. Cardiovascular: RRR, no murmur. Lungs: CTAB Gastrointestinal: soft, large ventral hernia, nontender Genitourinary: has a martinez - light colored urine in collection bag. Extremities: no edema BLEs Neurological: A&Ox3, +Rhomberg. LUE and LLE with mildly diminished strength compared to right. Psychiatric: Appropriate speech pattern/content. Affect appropriate. Objective Last Vital Signs Temp 36.6 C 03/21/23 13:43 Pulse 72 03/21/23 13:43 Resp 19 03/21/23 14:00 BP 117/61 03/21/23 13:43 Pulse Ox 98 03/21/23 13:43 Laboratory Results - last 24 hr 03/20/23 03/20/23 03/20/23 01:30 17:40 17:40 WBC 13.00 H RBC 5.17 Hgb 16.3 Hct 46.4 MCV 90 MCH 31.5 MCHC 35.1 RDW 13.2 Plt Count 390 MPV 9.5 Immature Gran % 0.5 Neutrophils % 72.1 Lymphocytes % 12.3 Monocytes % 11.0 Eosinophils % 3.8 Basophils % 0.3 Nucleated RBC % 0.0 Absolute Neutrophils 9.37 H Absolute Lymphocytes 1.60 Absolute Monocytes 1.43 H Absolute Eosinophils 0.49 Absolute Basophils 0.04 VBG Lactate Sodium 136 Potassium 3.8 Chloride 97 L Carbon Dioxide 19.7 L Anion Gap 19.3 H BUN 74 H Creatinine 6.7 H* Est GFR (CKD-EPI 2020) 8.57 Glucose 160 H Uric Acid Calcium 8.4 L Magnesium 1.7 L Total Bilirubin 0.5 AST 36 ALT 56 Alkaline Phosphatase 83 Creatine Kinase Troponin I < 50 C-Reactive Protein Total Protein 7.8 Albumin 3.9 Procalcitonin TSH Free T4 Urine Color Urine Clarity Urine pH Ur Specific [place] Urine Protein Urine Ketones Urine Blood Urine Nitrite Urine Bilirubin Urine Urobilinogen Ur Leukocyte Esterase Urine RBC Urine WBC Ur Epithelial Cells Urine Crystals Urine Bacteria Urine Casts Urine Mucus Ur Culture Indicated? Ur Random Creatinine 245.88 Urine Glucose Add-On Test Request 03/20/23 03/20/23 03/20/23 18:25 18:25 20:35 WBC RBC Hgb Hct MCV MCH MCHC RDW Plt Count MPV Immature Gran % Neutrophils % Lymphocytes % Monocytes % Eosinophils % Basophils % Nucleated RBC % Absolute Neutrophils Absolute Lymphocytes Absolute Monocytes Absolute Eosinophils Absolute Basophils VBG Lactate Sodium 137 Potassium 4.7 Chloride 100 Carbon Dioxide 21.9 Anion Gap 15.1 H BUN 75 H Creatinine 6.3 H* Est GFR (CKD-EPI 2020) 9.23 Glucose 191 H Uric Acid 8.7 H Calcium 8.0 L Magnesium Total Bilirubin AST ALT Alkaline Phosphatase Creatine Kinase 172 Troponin I C-Reactive Protein Total Protein Albumin Procalcitonin TSH 0.61 Free T4 0.88 Urine Color Yellow Urine Clarity Clear Urine pH 5.0 Ur Specific [place] 1.025 Urine Protein >=300 H Urine Ketones Trace H Urine Blood Small H Urine Nitrite Negative Urine Bilirubin Small H Urine Urobilinogen 0.2 Ur Leukocyte Esterase Negative Urine RBC 3-5 H Urine WBC Negative Ur Epithelial Cells Rare Urine Crystals Negative Urine Bacteria Rare Urine Casts 0-2 Hyaline Urine Mucus Negative Ur Culture Indicated? No Ur Random Creatinine Urine Glucose Negative Add-On Test Request 03/20/23 03/20/23 03/21/23 20:40 21:53 00:20 WBC RBC Hgb Hct MCV MCH MCHC RDW Plt Count MPV Immature Gran % Neutrophils % Lymphocytes % Monocytes % Eosinophils % Basophils % Nucleated RBC % Absolute Neutrophils Absolute Lymphocytes Absolute Monocytes Absolute Eosinophils Absolute Basophils VBG Lactate 2.3 H* 1.8 H Sodium Potassium Chloride Carbon Dioxide Anion Gap BUN Creatinine Est GFR (CKD-EPI 2020) Glucose Uric Acid Calcium Magnesium Total Bilirubin AST ALT Alkaline Phosphatase Creatine Kinase Troponin I C-Reactive Protein Total Protein Albumin Procalcitonin 0.4 TSH Free T4 Urine Color Urine Clarity Urine pH Ur Specific [place] Urine Protein Urine Ketones Urine Blood Urine Nitrite Urine Bilirubin Urine Urobilinogen Ur Leukocyte Esterase Urine RBC Urine WBC Ur Epithelial Cells Urine Crystals Urine Bacteria Urine Casts Urine Mucus Ur Culture Indicated? Ur Random Creatinine Urine Glucose Add-On Test Request DONE 03/21/23 03/21/23 03/21/23 05:46 05:46 05:46 WBC 9.50 RBC 4.50 Hgb 14.1 D Hct 40.3 MCV 90 MCH 31.3 MCHC 35.0 RDW 13.2 Plt Count 333 MPV 9.4 Immature Gran % 0.4 Neutrophils % 69.1 Lymphocytes % 16.1 Monocytes % 9.9 Eosinophils % 4.1 Basophils % 0.4 Nucleated RBC % 0.0 Absolute Neutrophils 6.56 Absolute Lymphocytes 1.53 Absolute Monocytes 0.94 H Absolute Eosinophils 0.39 Absolute Basophils 0.04 VBG Lactate 1.1 Sodium 137 Potassium 3.6 D Chloride 102 Carbon Dioxide 19.5 L Anion Gap 15.5 H BUN 69 H Creatinine 4.6 H* Est GFR (CKD-EPI 2020) 13.46 Glucose 181 H Uric Acid Calcium 7.9 L Magnesium 1.7 L Total Bilirubin AST ALT Alkaline Phosphatase Creatine Kinase Troponin I C-Reactive Protein Total Protein Albumin Procalcitonin TSH Free T4 Urine Color Urine Clarity Urine pH Ur Specific [place] Urine Protein Urine Ketones Urine Blood Urine Nitrite Urine Bilirubin Urine Urobilinogen Ur Leukocyte Esterase Urine RBC Urine WBC Ur Epithelial Cells Urine Crystals Urine Bacteria Urine Casts Urine Mucus Ur Culture Indicated? Ur Random Creatinine Urine Glucose Add-On Test Request 03/21/23 05:46 WBC RBC Hgb Hct MCV MCH MCHC RDW Plt Count MPV Immature Gran % Neutrophils % Lymphocytes % Monocytes % Eosinophils % Basophils % Nucleated RBC % Absolute Neutrophils Absolute Lymphocytes Absolute Monocytes Absolute Eosinophils Absolute Basophils VBG Lactate Sodium Potassium Chloride Carbon Dioxide Anion Gap BUN Creatinine Est GFR (CKD-EPI 2020) Glucose Uric Acid Calcium Magnesium Total Bilirubin AST ALT Alkaline Phosphatase Creatine Kinase Troponin I C-Reactive Protein 1.14 H Total Protein Albumin Procalcitonin TSH Free T4 Urine Color Urine Clarity Urine pH Ur Specific [place] Urine Protein Urine Ketones Urine Blood Urine Nitrite Urine Bilirubin Urine Urobilinogen Ur Leukocyte Esterase Urine RBC Urine WBC Ur Epithelial Cells Urine Crystals Urine Bacteria Urine Casts Urine Mucus Ur Culture Indicated? Ur Random Creatinine Urine Glucose Add-On Test Request PAWSS Have you Been Recently Intoxicated or Drunk Within the Last 30 days?: No Have you Ever Experienced Previous Episodes of Alcohol Withdrawal?: No Have you ever Experienced Withdrawal Seizures?: No Have you ever Experienced Delirium Tremens(DT)s?: No Have you ever undergone Alcohol Rehabilitation Treatment (i.e, inpt ot outpatient treatment programs)?: No Have you ever Experienced Blackouts?: No Have you ever Combined Alcohol with other Downers within the last 90 days?: No Have you ever Combined Alcohol with any other Substance of Abuse during the last 90 days?: No Result: 0 Time Spent with Patient Time Spent with Patient: 25-34 minutes Time was spent: preparing to see the patient(eg.review tests), obtaining and/or reviewing separately otained hiistory, ordering medications,tests, procedures, referring, communicating with other health healthcare corporate account director, indepentently interpreting results and counseling the patient
[2023-03-21 15:47] LABS: Urea Nitrogen Random Urine 318 mg/dL (See Note)
[2023-03-21] MEDS: Magnesium Oxide 400 MG TAB PO ×2 (17:18→19:37)
--- NOTE | 2023-03-21 20:17 | DI.RAD_ITS ---
Exam(s) XR KNEE LT 2V AP,LAT EXAM: XR KNEE LT 2V AP,LAT CLINICAL HISTORY: Hx recent fall on knee and escalating pain. TECHNIQUE: 2D digital imaging was performed of the left knee. Two images were obtained. AP and lat eral views were obtained. COMPARISON: No priors for comparison. FINDINGS: BONES: No acute fracture is present. No bony destructive lesion is seen. JOINTS: The knee is normally aligned. No joint effusion is seen. SOFT TISSUE: Vascular clips are seen in the soft tissues. Soft tissue calcifications are seen around the knee. Chondrocalcinosis is present. IMPRESSION: No acute abnormality. DATA REPOSITORY: RADIATION DOSE DELIVERED:
--- NOTE | 2023-03-21 21:00 | DI.VRAD_ITS ---
PROCEDURE INFORMATION: Exam: XR Left Knee Exam date and time: 03/21/2023 8:30 PM Age: 63 years old Clinical indication: Other: HX recent fall on knee escalating pain TECHNIQUE: Imaging protocol: Radiologic exam of the left knee. Views: 1 or 2 views. COMPARISON: No relevant prior studies available. FINDINGS: Bones/joints: Chondrocalcinosis noted. Chronic defect in the lateral femoral condyle with adjacent chronic ovoid calcifications versus vague ossifications Soft tissues: Surgical clips in the distal thigh IMPRESSION: No acute findings. Chronic findings as noted Dictated and Authenticated by: Lester Aranda MD. Ordering:JEANIE Cummins MD
[2023-03-21] MEDS: Ibuprofen 400 MG TAB PO (22:05)
--- NOTE | 2023-03-21 22:35 | NUR.NOTE ---
Patient was transferred from the ICU tonight. Arrived to the floor alert and oriented x3 accompanied by Caren from the ICU. Patient reported left knee pain analgesics were given just before arriving to the floor. Vitals done and charted.
[2023-03-22] MEDS: Acetaminophen 325 MG TAB PO ×3 (01:25→12:30)
[2023-03-22] MEDS: cefTRIAXone 2 GM/50 ML BAG IVPB (01:32)
[2023-03-22] MEDS: Normal Saline Flush 10 ML SYR IVP ×2 (01:33→08:09)
[2023-03-22 01:41] VITALS: BP 107/66; PULSE 69; RESP 16; TEMP 36.5; O2SAT 96
[2023-03-22] MEDS: traMADol 50 MG TAB PO (02:06)
[2023-03-22] MEDS: Heparin 5,000 UNITS/ML VIAL 5000 UNITS SC ×2 (05:16→13:26)
[2023-03-22 07:00] VITALS: BP 113/76; PULSE 76; PULSE 85; RESP 18; TEMP 35.9; O2SAT 97
--- NOTE | 2023-03-22 07:00 | DI.MRI_ITS ---
Exam(s) MR BRAIN WO EXAM: MR BRAIN WO CLINICAL HISTORY: left sided weakness and cerebellar symptoms of CVA TECHNIQUE: Multiplanar multisequence MRI of the brain was performed. COMPARISON: CT CT HEAD WO from 03/20/2023 FINDINGS: VENTRICLES AND EXTRA AXIAL SPACES: Normal in size and morphology for the patient's age. MIDLINE SHIFT: None. CEREBRAL PARENCHYMA: No focus of restricted diffusion to suggest acute infarct. No space-occupying le natalie identified. HEMORRHAGE: None. BRAINSTEM/CEREBELLUM: Normal. CALVARIUM: Normal. VISUALIZED PARANASAL SINUSES/MASTOIDS:Clear. [place] OF RACHEL: Normal flow void. PITUITARY GLAND: Unremarkable. OTHER FINDINGS: None. IMPRESSION: No evidence of an acute infarct. DATA REPOSITORY:
[2023-03-22 07:09] LABS: Anion Gap 11.9 mmol/L (3-11); BUN 50 mg/dL (7-18); CO2 24.1 mmol/L (21.0-32.0); CREATININE 2.5 mg/dL (0.70-1.30); Calcium 8.6 mg/dL (8.5-10.1); Chloride 103 mmol/L (98-107); Estimated GFR 27.99 (mL/min/1.73m2); Glucose 143 mg/dL (74-106); Magnesium 1.6 mg/dL (1.8-2.4); Potassium 3.3 mmol/L (3.5-5.1); Sodium 139 mmol/L (136-145)
[2023-03-22] MEDS: Aspirin 81 MG CHEW PO (08:08)
[2023-03-22] MEDS: Insulin Aspart 300 UNITS/3 ML PEN SC ×2 (08:09→12:27)
[2023-03-22] MEDS: Magnesium Oxide 400 MG TAB PO (08:09)
[2023-03-22 11:12] VITALS: BP 131/84; PULSE 71; RESP 18; TEMP 34.5; O2SAT 98
[2023-03-22 11:18] VITALS: TEMP 35.7
[2023-03-22] MEDS: traMADol 50 MG TAB 100 MG PO (13:25)
[2023-03-22] MEDS: Magnesium Oxide 400 MG TAB 800 MG PO (13:26)
--- NOTE | 2023-03-22 15:07 | CMPROGNOTE_ITS ---
Date of service: 03/22/23 Time of Service: 15:08 Care Management Progress Note Progress Note Text Progress Note Text: S/O: Jas is sitting in his chair, visiting with his Noreen with CM met with him. He is awake and easily engages in conversation. PT recommendation is Home with PT, when medically ready. He is agreeable to this plan and shares that he would not want STR or outpatient PT. Jas also shares that his primary care office is [facility], and sees Kerry Estrada. CM will continue to follow. A: 63 year old male admitted to [facility] on 03/20/23 for MADONNA, Hypotension, dehydration P: Jas continues to require close monitoring and work-up for various symptoms. Anticipate,he will return home when ready with [facility] PT, unless further evaluation results in additional service recommendations. He will transport via private vehicle with his , Noreen.
--- NOTE | 2023-03-22 15:31 | PT.INTREAT ---
Date of service: 03/22/23 Time of Service: 15:11 PT Notes Visit Reasons: MADONAN, Hypotension, Dehydration Inpatient Physical Therapy Treatment Note [facility] Date: 03/22/23 PRECAUTIONS: Fall, standard, activity as tolerated SUBJECTIVE: Patient seated EOB, agreeable to therapy. Complains of right knee buckling, giving out, feeling unsteady and painful. Wants to trial hinged knee brace. OBJECTIVE: PAIN: Left knee BED MOBILITY/TRANSFERS Rolling L/R: independent Supine-sit: independent Sit-supine: independent Sit-stand: independent Stand-sit: independent Bed-Chair: independent Chair-bed: independent GAIT Assistive Device: front wheeled walker, trialled single point cane but patient was unsteady and not confident or comfortable. Weight bearing: full Assist: independent Distance: 30 feet Deviation: wide base of support, shortened step length. ASSESSMENT: Patient tolerates therapy well and is eager to get home. Reports knee feels infinitely better with more stability and less pain with the hinged knee brace in place. PLAN: Patient discharging home today. TREATMENT CODE/TIME: 28713 gait 12 minutes beginning at 15:11
--- NOTE | 2023-03-22 15:44 | W.PM.DS.N ---
Date of service: 03/22/23 Time of Service: 15:44 DS: Diagnosis Discharge Diagnosis (1) MADONNA (acute kidney injury): Status: Resolved Asessment and Plan: In setting of hypotension, dehydration, suspected infection, though without obvious source (infection is suspected based on the leukocytosis and a borderline elevated procalcitonin). Improving. He was placed on norepinephrine the evening of admision then was weaned off the following AM. CT w/o evidence of obstructive uropathy. (2) Dehydration: Status: Acute Asessment and Plan: Hydrated and resolved. (3) CAD (coronary artery disease): Asessment and Plan: Cont ASA, Statin, metoprolol. Lisinopril held d/t hypotension; hold on d/c with instructions. (4) Near syncope: Status: Acute Asessment and Plan: Iv hydration. Held antihypertensives Cardiac monitoring Orthostatic d/t dehydration. Discharge Plan Disposition Patient Disposition: Home Condition: Improving Discharge Details Reason For Visit: MADONNA, Hypotension, Dehydration Admit Date/Time: 03/20/23 21:54 Admit Provider: Casimiro Cuenca Attending Provider: Casimiro Cuenca [facility] Course: Mr Alex is a 63 year old male with PMHx of CAD s/p CABG, NIDDM2, hypertension, hyperlipidemia, obesity with BMI of 33 kg/m2, who presented to [facility] ED c/o weakness and dizziness on and off for 2-3 months, accompanied by a poor appetite, lower endurance. When talking about dizziness, he specifically means the feeling like he is going to faint and episodes where he is near fainting which typically happen with chance of position from sitting to standing and get better when he sits down. This got especially bad in the last week, and today the patient had an episode where he felt like he was about to faint and actually fell, but was caught by his and did not hurt himself. He described feeling palpitations and short of breath at the time, but denies sweats, chest pain, nausea. His appetite and PO intake have been poor over the last 4-5 days, although the patient states he has still been drinking water. Denies abdominal pain, diarrhea, constipation, fevers/chills, weight loss. He does describe occasional chest pains, last a few weeks ago, which feel just like when I had the blockage before the surgery. He states his muscles have been hurting and he has had no strength.? States he has been urinating more than normal, which is twice a day for him. He denies urinary hesitancy, urgency, dysuria.? ? In the ED, the patient was found to be hypotensive with a BP of 69/47. After receiving 2 L of LR, it did improve to SBP in the 80s. On insertion of martinez catheter, 150 cc of urine came out (after 2 L of IV hydration). 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 CT head was obtained due to c/o dizziness as well as findings of a horizontal nystagmus in the ED - the study was negative. Hospitalist admission was requested. Because the patient does have evidence of a leukocytosis, a borderline procalcitonin, and an elevated lactate, empiric ceftriaxone is being initiated. His UA and CXR are negative; blood cultures are pending. See Diagnosis Home Meds and New Rx's Prescriptions: Continued chlorthalidone 25 MG tablet 25 mg PO DAILY ibuprofen 800 MG tablet 800 mg PO TID PRN aspirin [Children's Aspirin] 81 MG tablet,chewable 81 mg PO DAILY rosuvastatin [Crestor] 20 MG tablet 40 mg PO DAILY Patient Comments: metoprolol tartrate 25 MG tablet 50 mg PO BID gemfibrozil 600 MG tablet 600 mg PO BID acetaminophen [Tylenol] 325 MG tablet 650 mg PO Q6H PRN PRNQty: 30 0RF Held lisinopril 20 MG tablet 20 mg PO DAILY Hold Instructions: Hold until PCP follow up Patient Comments: 10/16/15-on hold per PCP d/t low BP. HM No Action metformin 500 mg tablet 1,000 mg PO BID omeprazole 20 mg capsule,delayed release(DR/EC) 20 mg PO DAILY hydroxyzine HCl 50 mg tablet 50 mg PO BID PRN indomethacin 50 mg capsule 50 mg PO BID Rx Instructions: administer with food or milk allopurinol 100 mg tablet 300 mg PO .qod magnesium oxide 400 mg magnesium capsule 400 mg PO DAILY Discharge Instructions Instructions: Acute Kidney Injury (GEN) Stand Alone Forms: Nursing Discharge Form Referrals: Kerry Estrada [Primary Care Provider] - (A nurse will call you with an Apointment in the next 24hours ) Activity:: Activity as Tolerated Equipment/Supplies:: Hinged knee brace Diet:: Resume home diet Discharge Orders Discharge Orders: Discharge Order (Routine); Ordered 03/22/23 Ordered By: Casimiro Cuenca Other Ambulatory Orders: CT cervical spine wo (Routine) Location: None Selected Ordered By: Casimiro Cuenca Discharge Data Discharge Date/Time-TO BE ENTERED AT DEPARTURE: 03/22/23 16:26 DS: Summary Time Spent with Patient providing and/or coordinating discharge services: Greater than 30 minutes Status at Discharge Functional status at discharge: independent ambulation Overall status at discharge: patient is progressing back to baseline Mental Status: mental status grossly normal Speech and Movement: catatonic Mood: congruent mood Affect: normal affect Exam Narrative Exam Narrative: General: Pleasant middle-aged male sitting upright in bed. Nontoxic appearing. Conversant. HEENT: MMM, sclera clear. Cardiovascular: RRR, no murmur. Lungs: CTAB Gastrointestinal: soft, large ventral hernia, nontender Genitourinary: has a martinez - light colored urine in collection bag. Extremities: no edema BLEs. Left knee knee with mild swelling. Neurological: A&Ox3, +Rhomberg. LUE and LLE with mildly diminished strength compared to right. Psychiatric: Appropriate speech pattern/content. Affect appropriate. Psych Mental Status: mental status grossly normal Speech and Movement: catatonic Mood: congruent mood Affect: normal affect DS: Data Vitals/I&O Vitals and I&O: Vital Signs Temperature 35.7 C L 03/22/23 11:18 Temperature Source Oral 03/22/23 11:18 Pulse 71 03/22/23 11:12 Pulse Rhythm Regular 03/22/23 09:00 Pulse 74 03/21/23 19:43 Respiratory Rate 18 03/22/23 11:12 Respiratory Effort Normal 03/22/23 09:00 Respiratory Depth Normal 03/22/23 09:00 Respiratory Pattern Normal 03/22/23 09:00 Blood Pressure 131/84 03/22/23 11:12 Blood Pressure Mean 78 03/21/23 19:43 Blood Pressure Position Supine 03/21/23 03:58 Pulse Oximetry 98 03/22/23 11:12 Oxygen Delivery Method Room Air 03/22/23 11:12 Oxygen Flow Rate 0 03/22/23 11:12 Pain Level 8 03/22/23 13:25 Comment RN informed of temp - will retake with oral 03/22/23 11:12 Intake & Output 03/21/23 03/22/23 03/22/23 23:59 11:59 23:59 Intake Total 1600 / 3205.864 400 / 400 Output Total 2975 / 5240 300 / 300 Balance -1375 / -2034.136 100 / 100 Weight 94.9 kg Intake: IV 1000 / 2055.864 50 / 50 Oral 600 / 1150 350 / 350 Output: Urine 2975 / 5240 300 / 300 Other: Urine Color Yellow Yellow Urine Appearance Clear Clear Urine Odor Normal Stool Size Moderate Stool Characteristics Soft Formed Voiding Methods Bedside Commode Toilet Data Completed and Pending Labs on day of discharge: Labs from last 24 hours 03/22/23 03/20/23 06:03 01:30 Sodium 139 Potassium 3.3 L Chloride 103 Carbon Dioxide 24.1 Anion Gap 11.9 H BUN 50 H Creatinine 2.5 H D Est GFR (CKD-EPI 2020) 27.99 Glucose 143 H Calcium 8.6 Magnesium 1.6 L Urine Urea Nitrogen 318 Preliminary micro results at discharge 03/20/23 20:40 Blood Culture - Preliminary Blood NO GROWTH 24 HOURS 03/20/23 20:40 Blood Culture - Preliminary Blood NO GROWTH 24 HOURS PFSH All Active Problems (Updated 06/06/23 @ 11:58 by Casimiro Cuenca MD) Near syncope (Acute) Dehydration (Acute) Alcohol abuse (Chronic) Obesity (Chronic) Left arm weakness (Acute) Abdominal pain (Acute) Enteritis (Acute) Incarcerated ventral hernia (Acute) Postop check (Acute) Fever (Acute) Hypokalemia (Acute) Medical History CAD (coronary artery disease) Diabetes Gout HTN (hypertension) Hypercholesterolemia Surgical History Fx tibia/fibula shaft-op incarcerated ventral hernia with small bowel resection (02/21/18) S/P CABG (coronary artery bypass graft) S/P hernia repair Family History Other Breast cancer Social History Smoking/Tobacco Use Status: Never Smoking risk assessment performed?: Yes Alcohol Intake: current Alcohol Intake frequency: a few times a week Alcohol type: beer Drug use: Never Substance use type: does not use Do you feel safe in your relationship?: No Time Spent with Patient Time Spent with Patient: <45 minutes Time was spent: preparing to see the patient(eg.review tests), obtaining and/or reviewing separately otained hiistory, referring, communicating with other health home health care respiratory therapist, indepentently interpreting results, counseling the patient and care coordination
[2023-03-22 15:48] VITALS: BP 144/84; PULSE 62; RESP 18; TEMP 36; O2SAT 97
--- NOTE | 2023-03-22 15:59 | PDOC.CMDIS ---
Date of service: 03/22/23 Time of Service: 15:59 LACE Index Scoring Tool Questions: Length of Stay (in days): 2 Was the patient admitted via the E.D.?: Yes Comorbidities: Cerebrovascular Disease E.D. Visits: 1 Answers: Total Score: 7 Risk of Readmission: Low Risk Care Management Discharge Plan Reason for Hospitalization: MADONNA, Hypotension, dehydration Discharge Plan: Jas is discharged home via private vehicle with . He will follow up with outpatient providers and his discharge plan of care as instructed. He is independent with PT, no new services are ordered. Patient/Family Education Needs: Review discharge instructions, limitations and plan to follow up with outpatient providers. Discuss ask me three.
--- NOTE | 2023-03-22 16:19 | W.PM.DS.N ---
Date of service: 03/22/23 Time of Service: 13:20 DS: Diagnosis Discharge Diagnosis (1) MADONNA (acute kidney injury): Status: Resolved (2) Left arm weakness: Status: Acute Discharge Plan Disposition Patient Disposition: Home Condition: Improving Discharge Details Reason For Visit: MADONNA, Hypotension, Dehydration Admit Date/Time: 03/20/23 21:54 Admit Provider: Casimiro Cuenca Attending Provider: Casimiro Cuenca Primary Care Provider: Kerry Estrada Hospital Course Hospital Course: Mr Alex is a 63 year old male with PMHx of CAD s/p CABG, NIDDM2, hypertension, hyperlipidemia, obesity with BMI of 33 kg/m2, who presented to [facility] ED c/o weakness and dizziness on and off for 2-3 months, accompanied by a poor appetite, lower endurance. When talking about dizziness, he specifically means the feeling like he is going to faint and episodes where he is near fainting which typically happen with chance of position from sitting to standing and get better when he sits down. This got especially bad in the last week, and today the patient had an episode where he felt like he was about to faint and actually fell, but was caught by his and did not hurt himself. He described feeling palpitations and short of breath at the time, but denies sweats, chest pain, nausea. His appetite and PO intake have been poor over the last 4-5 days, although the patient states he has still been drinking water. Denies abdominal pain, diarrhea, constipation, fevers/chills, weight loss. He does describe occasional chest pains, last a few weeks ago, which feel just like when I had the blockage before the surgery. He states his muscles have been hurting and he has had no strength.? States he has been urinating more than normal, which is twice a day for him. He denies urinary hesitancy, urgency, dysuria.? ? In the ED, the patient was found to be hypotensive with a BP of 69/47. After receiving 2 L of LR, it did improve to SBP in the 80s. On insertion of martinez catheter, 150 cc of urine came out (after 2 L of IV hydration). 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 CT head was obtained due to c/o dizziness as well as findings of a horizontal nystagmus in the ED - the study was negative. Hospitalist admission was requested. Because the patient does have evidence of a leukocytosis, a borderline procalcitonin, and an elevated lactate, empiric ceftriaxone is being initiated. His UA and CXR are negative; blood cultures are pending. See Diagnosis Home Meds and New Rx's Prescriptions: Continued chlorthalidone 25 MG tablet 25 mg PO DAILY ibuprofen 800 MG tablet 800 mg PO TID PRN aspirin [Children's Aspirin] 81 MG tablet,chewable 81 mg PO DAILY rosuvastatin [Crestor] 20 MG tablet 40 mg PO DAILY Hold Instructions: Changed by Provider Patient Comments: metoprolol tartrate 25 MG tablet 50 mg PO BID gemfibrozil 600 MG tablet 600 mg PO BID acetaminophen [Tylenol] 325 MG tablet 650 mg PO Q6H PRN PRNQty: 30 0RF Held lisinopril 20 MG tablet 20 mg PO DAILY Hold Instructions: Hold until PCP follow up Patient Comments: 10/16/15-on hold per PCP d/t low BP. HM No Action metformin 500 mg tablet 1,000 mg PO BID omeprazole 20 mg capsule,delayed release(DR/EC) 20 mg PO DAILY hydroxyzine HCl 50 mg tablet 50 mg PO BID PRN indomethacin 50 mg capsule 50 mg PO BID Rx Instructions: administer with food or milk allopurinol 100 mg tablet 300 mg PO .qod magnesium oxide 400 mg magnesium capsule 400 mg PO DAILY rosuvastatin 40 mg tablet 40 mg PO DAILY lisinopril 10 mg tablet 10 mg PO DAILY Discharge Instructions Instructions: Acute Kidney Injury (GEN) Stand Alone Forms: Nursing Discharge Form Referrals: Kerry Estrada [Primary Care Provider] - (A nurse will call you with an Apointment in the next 24hours ) Activity:: Activity as Tolerated Equipment/Supplies:: Hinged knee brace Diet:: Resume home diet Discharge Orders Discharge Orders: Discharge Order (Routine); Ordered 03/22/23 Ordered By: Casimiro Cuenca Other Ambulatory Orders: CT cervical spine wo (Routine) Location: None Selected Ordered By: Casimiro Cuenca Discharge Data Discharge Date/Time-TO BE ENTERED AT DEPARTURE: 03/22/23 16:26 DS: Summary Time Spent with Patient providing and/or coordinating discharge services: Less than 30 minutes Status at Discharge Functional status at discharge: independent ambulation Overall status at discharge: patient is progressing back to baseline Mental Status: mental status grossly normal Speech and Movement: speech and movement normal Mood: congruent mood Affect: normal affect Exam Narrative Exam Narrative: General: Pleasant middle-aged male sitting upright in bed. Nontoxic appearing. Conversant. HEENT: MMM, sclera clear. Cardiovascular: RRR, no murmur. Lungs: CTAB Gastrointestinal: soft, large ventral hernia, nontender Genitourinary: has a martinez - light colored urine in collection bag. Extremities: no edema BLEs Neurological: A&Ox3, +Rhomberg. LUE and LLE with mildly diminished strength compared to right. Psychiatric: Appropriate speech pattern/content. Affect appropriate. Psych Mental Status: mental status grossly normal Speech and Movement: speech and movement normal Mood: congruent mood Affect: normal affect DS: Data Vitals/I&O Vitals and I&O: Vital Signs Temperature 36 C L 03/22/23 15:48 Temperature Source Tympanic 03/22/23 15:48 Pulse 62 03/22/23 15:48 Pulse Rhythm Regular 03/22/23 09:00 Pulse 74 03/21/23 19:43 Respiratory Rate 18 03/22/23 15:48 Respiratory Effort Normal 03/22/23 09:00 Respiratory Depth Normal 03/22/23 09:00 Respiratory Pattern Normal 03/22/23 09:00 Blood Pressure 144/84 H 03/22/23 15:48 Blood Pressure Mean 78 03/21/23 19:43 Blood Pressure Position Supine 03/21/23 03:58 Pulse Oximetry 97 03/22/23 15:48 Oxygen Delivery Method Room Air 03/22/23 15:48 Oxygen Flow Rate 0 03/22/23 15:48 Pain Level 8 03/22/23 13:25 Comment RN informed of temp - will retake with oral 03/22/23 11:12 Intake & Output 03/21/23 03/22/23 03/22/23 23:59 11:59 23:59 Intake Total 1600 / 3205.864 400 / 400 Output Total 2975 / 5240 300 / 300 Balance -1375 / -2034.136 100 / 100 Weight 94.9 kg Intake: IV 1000 / 2055.864 50 / 50 Oral 600 / 1150 350 / 350 Output: Urine 2975 / 5240 300 / 300 Other: Urine Color Yellow Yellow Urine Appearance Clear Clear Urine Odor Normal Stool Size Moderate Stool Characteristics Soft Formed Voiding Methods Bedside Commode Toilet Data Completed and Pending Labs on day of discharge: Labs from last 24 hours 03/22/23 03/20/23 06:03 01:30 Sodium 139 Potassium 3.3 L Chloride 103 Carbon Dioxide 24.1 Anion Gap 11.9 H BUN 50 H Creatinine 2.5 H D Est GFR (CKD-EPI 2020) 27.99 Glucose 143 H Calcium 8.6 Magnesium 1.6 L Urine Urea Nitrogen 318 Preliminary micro results at discharge 03/20/23 20:40 Blood Culture - Preliminary Blood NO GROWTH 24 HOURS 03/20/23 20:40 Blood Culture - Preliminary Blood NO GROWTH 24 HOURS PFSH All Active Problems (Updated 10/09/23 @ 00:02 by CALLIE ESPINOZA) Near syncope (Acute) Dehydration (Acute) Alcohol abuse (Chronic) Obesity (Chronic) Left arm weakness (Acute) Abdominal pain (Acute) Enteritis (Acute) Incarcerated ventral hernia (Acute) Postop check (Acute) Fever (Acute) Hypokalemia (Acute) Medical History Diabetes HTN (hypertension) Hypercholesterolemia CAD (coronary artery disease) Gout Surgical History Fx tibia/fibula shaft-op S/P CABG (coronary artery bypass graft) S/P hernia repair incarcerated ventral hernia with small bowel resection (02/21/18) Family History Other Breast cancer Social History Smoking/Tobacco Use Status: Never Smoking risk assessment performed?: Yes Alcohol Intake: current Alcohol Intake frequency: a few times a week Alcohol type: beer Drug use: Never Substance use type: does not use Housing: house Do you feel safe at home: No Do you feel safe in your relationship?: No Time Spent with Patient Time Spent with Patient: <45 minutes Time was spent: preparing to see the patient(eg.review tests), obtaining and/or reviewing separately otained hiistory, ordering medications,tests, procedures, referring, communicating with other health intensive care ambulance paramedic and indepentently interpreting results
--- NOTE | 2023-03-22 16:22 | W.PM.DS.N ---
DS: Diagnosis Discharge Diagnosis (1) MADONNA (acute kidney injury): Status: Acute (2) Left arm weakness: Status: Acute Discharge Plan Disposition Patient Disposition: Home Condition: Improving Discharge Details Reason For Visit: MADONNA, Hypotension, Dehydration Admit Date/Time: 03/20/23 21:54 Admit Provider: Casimiro Cuenca Attending Provider: Casimiro Cuenca Primary Care Provider: Domingo Ngo Home Meds and New Rx's Prescriptions: Continued chlorthalidone 25 MG tablet 25 mg PO DAILY ibuprofen 800 MG tablet 800 mg PO TID PRN allopurinol 100 MG tablet 300 mg PO DAILY aspirin [Children's Aspirin] 81 MG tablet,chewable 81 mg PO DAILY rosuvastatin [Crestor] 20 MG tablet 40 mg PO DAILY Patient Comments: metoprolol tartrate 25 MG tablet 50 mg PO BID gemfibrozil 600 MG tablet 600 mg PO BID acetaminophen [Tylenol] 325 MG tablet 650 mg PO Q6H PRN PRNQty: 30 0RF metformin 500 mg Tablet 500 mg PO DAILY Held lisinopril 20 MG tablet 20 mg PO DAILY Hold Instructions: Hold until PCP follow up Patient Comments: 10/16/15-on hold per PCP d/t low BP. HM Discharge Instructions Instructions: Acute Kidney Injury (GEN) Stand Alone Forms: Nursing Discharge Form Referrals: Kerry Estrada [NURSE PRACTITIONER] - (A nurse will call you with an Apointment in the next 24hours ) Activity:: Activity as Tolerated Equipment/Supplies:: Hinged knee brace Diet:: Resume home diet Discharge Orders Discharge Orders: Discharge Order (Routine); Ordered 03/22/23 Ordered By: Casimiro Cuenca Other Ambulatory Orders: CT cervical spine wo (Routine) Location: None Selected Ordered By: Casimiro Cuenca Exam Narrative Exam Narrative: General: Pleasant middle-aged male sitting upright in bed. Nontoxic appearing. Conversant. HEENT: MMM, sclera clear. Cardiovascular: RRR, no murmur. Lungs: CTAB Gastrointestinal: soft, large ventral hernia, nontender Genitourinary: has a martinez - light colored urine in collection bag. Extremities: no edema BLEs Neurological: A&Ox3, +Rhomberg. LUE and LLE with mildly diminished strength compared to right. Psychiatric: Appropriate speech pattern/content. Affect appropriate. DS: Data Vitals/I&O Vitals and I&O: Vital Signs Temperature 36 C L 03/22/23 15:48 Temperature Source Tympanic 03/22/23 15:48 Pulse 62 03/22/23 15:48 Pulse Rhythm Regular 03/22/23 09:00 Pulse 74 03/21/23 19:43 Respiratory Rate 18 03/22/23 15:48 Respiratory Effort Normal 03/22/23 09:00 Respiratory Depth Normal 03/22/23 09:00 Respiratory Pattern Normal 03/22/23 09:00 Blood Pressure 144/84 H 03/22/23 15:48 Blood Pressure Mean 78 03/21/23 19:43 Blood Pressure Position Supine 03/21/23 03:58 Pulse Oximetry 97 03/22/23 15:48 Oxygen Delivery Method Room Air 03/22/23 15:48 Oxygen Flow Rate 0 03/22/23 15:48 Pain Level 8 03/22/23 13:25 Comment RN informed of temp - will retake with oral 03/22/23 11:12 Intake & Output 03/21/23 03/22/23 03/22/23 23:59 11:59 23:59 Intake Total 1600 / 3205.864 400 / 400 Output Total 2975 / 5240 300 / 300 Balance -1375 / -2034.136 100 / 100 Weight 94.9 kg Intake: IV 1000 / 2055.864 50 / 50 Oral 600 / 1150 350 / 350 Output: Urine 2975 / 5240 300 / 300 Other: Urine Color Yellow Yellow Urine Appearance Clear Clear Urine Odor Normal Stool Size Moderate Stool Characteristics Soft Formed Voiding Methods Bedside Commode Toilet Data Completed and Pending Labs on day of discharge: Labs from last 24 hours 03/22/23 03/20/23 06:03 01:30 Sodium 139 Potassium 3.3 L Chloride 103 Carbon Dioxide 24.1 Anion Gap 11.9 H BUN 50 H Creatinine 2.5 H D Est GFR (CKD-EPI 2020) 27.99 Glucose 143 H Calcium 8.6 Magnesium 1.6 L Urine Urea Nitrogen 318 Preliminary micro results at discharge 03/20/23 20:40 Blood Culture - Preliminary Blood NO GROWTH 24 HOURS 03/20/23 20:40 Blood Culture - Preliminary Blood NO GROWTH 24 HOURS PFSH All Active Problems (Updated 03/22/23 @ 15:51 by Casimiro Cuenca MD) Left arm weakness (Acute) MADONNA (acute kidney injury) (Acute) Abdominal pain (Acute) Enteritis (Acute) Incarcerated ventral hernia (Acute) Postop check (Acute) Fever (Acute) Hypokalemia (Acute) Medical History CAD (coronary artery disease) Diabetes Gout HTN (hypertension) Hypercholesterolemia Surgical History Fx tibia/fibula shaft-op incarcerated ventral hernia with small bowel resection (02/21/18) S/P CABG (coronary artery bypass graft) S/P hernia repair Family History Other Breast cancer Social History Smoking/Tobacco Use Status: Never Smoking risk assessment performed?: Yes Alcohol Intake: current Alcohol Intake frequency: a few times a week Alcohol type: beer Drug use: Never Substance use type: does not use Do you feel safe in your relationship?: No
--- NOTE | 2023-03-22 23:43 | DSE_ITS ---
Date of service: 03/22/23 Time of Service: 13:10 DS: Diagnosis Discharge Diagnosis (1) MADONNA (acute kidney injury): Status: Resolved (2) Left arm weakness: Status: Acute Discharge Plan Disposition Patient Disposition: Home Condition: Improving Discharge Details Reason For Visit: MADONNA, Hypotension, Dehydration Admit Date/Time: 03/20/23 21:54 Admit Provider: Casimiro Cuenca Attending Provider: Casimiro Cuenca Primary Care Provider: Kerry Estrada Hospital Course Hospital Course: Mr Alex is a 63 year old male with PMHx of CAD s/p CABG, NIDDM2, hypertension, hyperlipidemia, obesity with BMI of 33 kg/m2, who presented to [facility] ED c/o weakness and dizziness on and off for 2-3 months, accompanied by a poor appetite, lower endurance. When talking about dizziness, he specifically means the feeling like he is going to faint and episodes where he is near fainting which typically happen with chance of position from sitting to standing and get better when he sits down. This got especially bad in the last week, and today the patient had an episode where he felt like he was about to faint and actually fell, but was caught by his and did not hurt himself. He described feeling palpitations and short of breath at the time, but denies sweats, chest pain, nausea. His appetite and PO intake have been poor over the last 4-5 days, although the patient states he has still been drinking water. Denies abdominal pain, diarrhea, constipation, fevers/chills, weight loss. He does describe occasional chest pains, last a few weeks ago, which feel just like when I had the blockage before the surgery. He states his muscles have been hurting and he has had no strength.? States he has been urinating more than normal, which is twice a day for him. He denies urinary hesitancy, urgency, dysuria.? ? In the ED, the patient was found to be hypotensive with a BP of 69/47. After receiving 2 L of LR, it did improve to SBP in the 80s. On insertion of martinez catheter, 150 cc of urine came out (after 2 L of IV hydration). 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 CT head was obtained due to c/o dizziness as well as findings of a horizontal nystagmus in the ED - the study was negative. Hospitalist admission was requested. Because the patient does have evidence of a leukocytosis, a borderline procalcitonin, and an elevated lactate, empiric ceftriaxone is being initiated. His UA and CXR are negative; blood cultures are pending. See Diagnosis Home Meds and New Rx's Prescriptions: Continued chlorthalidone 25 MG tablet 25 mg PO DAILY ibuprofen 800 MG tablet 800 mg PO TID PRN aspirin [Children's Aspirin] 81 MG tablet,chewable 81 mg PO DAILY rosuvastatin [Crestor] 20 MG tablet 40 mg PO DAILY Hold Instructions: Changed by Provider Patient Comments: metoprolol tartrate 25 MG tablet 50 mg PO BID gemfibrozil 600 MG tablet 600 mg PO BID acetaminophen [Tylenol] 325 MG tablet 650 mg PO Q6H PRN PRNQty: 30 0RF Held lisinopril 20 MG tablet 20 mg PO DAILY Hold Instructions: Hold until PCP follow up Patient Comments: 10/16/15-on hold per PCP d/t low BP. HM No Action metformin 500 mg tablet 1,000 mg PO BID omeprazole 20 mg capsule,delayed release(DR/EC) 20 mg PO DAILY hydroxyzine HCl 50 mg tablet 50 mg PO BID PRN indomethacin 50 mg capsule 50 mg PO BID Rx Instructions: administer with food or milk allopurinol 100 mg tablet 300 mg PO .qod magnesium oxide 400 mg magnesium capsule 400 mg PO DAILY rosuvastatin 40 mg tablet 40 mg PO DAILY lisinopril 10 mg tablet 10 mg PO DAILY Discharge Instructions Instructions: Acute Kidney Injury (GEN) Stand Alone Forms: Nursing Discharge Form Referrals: Kerry Estrada [Primary Care Provider] - (A nurse will call you with an Apointment in the next 24hours ) Activity:: Activity as Tolerated Equipment/Supplies:: Hinged knee brace Diet:: Resume home diet Discharge Orders Discharge Orders: Discharge Order (Routine); Ordered 03/22/23 Ordered By: Casimiro Cuenca Other Ambulatory Orders: CT cervical spine wo (Routine) Location: None Selected Ordered By: Casimiro Cuenca Discharge Data Discharge Date/Time-TO BE ENTERED AT DEPARTURE: 03/22/23 16:26 DS: Summary Time Spent with Patient providing and/or coordinating discharge services: Less than 30 minutes Status at Discharge Functional status at discharge: independent ambulation Overall status at discharge: patient is progressing back to baseline Mental Status: mental status grossly normal Speech and Movement: speech and movement normal Mood: congruent mood Affect: normal affect Exam Psych Mental Status: mental status grossly normal Speech and Movement: speech and movement normal Mood: congruent mood Affect: normal affect DS: Data Vitals/I&O Vitals and I&O: Vital Signs Temperature 36 C L 03/22/23 15:48 Temperature Source Tympanic 03/22/23 15:48 Pulse 62 03/22/23 15:48 Pulse Rhythm Regular 03/22/23 09:00 Pulse 74 03/21/23 19:43 Respiratory Rate 18 03/22/23 15:48 Respiratory Effort Normal 03/22/23 09:00 Respiratory Depth Normal 03/22/23 09:00 Respiratory Pattern Normal 03/22/23 09:00 Blood Pressure 144/84 H 03/22/23 15:48 Blood Pressure Mean 78 03/21/23 19:43 Blood Pressure Position Supine 03/21/23 03:58 Pulse Oximetry 97 03/22/23 15:48 Oxygen Delivery Method Room Air 03/22/23 15:48 Oxygen Flow Rate 0 03/22/23 15:48 Pain Level 8 03/22/23 13:25 Comment RN informed of temp - will retake with oral 03/22/23 11:12 Intake & Output 03/21/23 03/22/23 03/22/23 23:59 11:59 23:59 Intake Total 1600 / 3205.864 400 / 400 Output Total 2975 / 5240 300 / 300 Balance -1375 / -2034.136 100 / 100 Weight 94.9 kg Intake: IV 1000 / 2055.864 50 / 50 Oral 600 / 1150 350 / 350 Output: Urine 2975 / 5240 300 / 300 Other: Urine Color Yellow Yellow Urine Appearance Clear Clear Urine Odor Normal Stool Size Moderate Stool Characteristics Soft Formed Voiding Methods Bedside Commode Toilet Data Completed and Pending Labs on day of discharge: Labs from last 24 hours 03/22/23 03/20/23 06:03 01:30 Sodium 139 Potassium 3.3 L Chloride 103 Carbon Dioxide 24.1 Anion Gap 11.9 H BUN 50 H Creatinine 2.5 H D Est GFR (CKD-EPI 2020) 27.99 Glucose 143 H Calcium 8.6 Magnesium 1.6 L Urine Urea Nitrogen 318 Preliminary micro results at discharge 03/20/23 20:40 Blood Culture - Preliminary Blood NO GROWTH 48 HOURS 03/20/23 20:40 Blood Culture - Preliminary Blood NO GROWTH 48 HOURS PFSH All Active Problems (Updated 10/09/23 @ 00:02 by CALLIE ESPINOZA) Near syncope (Acute) Dehydration (Acute) Alcohol abuse (Chronic) Obesity (Chronic) Left arm weakness (Acute) Abdominal pain (Acute) Enteritis (Acute) Incarcerated ventral hernia (Acute) Postop check (Acute) Fever (Acute) Hypokalemia (Acute) Medical History Diabetes HTN (hypertension) Hypercholesterolemia CAD (coronary artery disease) Gout Surgical History Fx tibia/fibula shaft-op S/P CABG (coronary artery bypass graft) S/P hernia repair incarcerated ventral hernia with small bowel resection (02/21/18) Family History Other Breast cancer Social History Smoking/Tobacco Use Status: Never Smoking risk assessment performed?: Yes Alcohol Intake: current Alcohol Intake frequency: a few times a week Alcohol type: beer Drug use: Never Substance use type: does not use Housing: house Do you feel safe at home: No Do you feel safe in your relationship?: No Time Spent with Patient Time Spent with Patient: <45 minutes Time was spent: preparing to see the patient(eg.review tests), obtaining and/or reviewing separately otained hiistory, ordering medications,tests, procedures, referring, communicating with other health career placement specialist and indepentently interpreting results
--- NOTE | 2023-03-23 00:16 | W.PM.DS.N ---
Date of service: 03/22/23 Time of Service: 13:00 DS: Diagnosis Discharge Diagnosis (1) MADONNA (acute kidney injury): Status: Resolved (2) Left arm weakness: Status: Acute Discharge Plan Disposition Patient Disposition: Home Condition: Improving Discharge Details Reason For Visit: MADONNA, Hypotension, Dehydration Admit Date/Time: 03/20/23 21:54 Admit Provider: Casimiro Cuenca Attending Provider: Casimiro Cuenca Primary Care Provider: Kerry Estrada Hospital Course Hospital Course: Mr Alex is a 63 year old male with PMHx of CAD s/p CABG, NIDDM2, hypertension, hyperlipidemia, obesity with BMI of 33 kg/m2, who presented to [facility] ED c/o weakness and dizziness on and off for 2-3 months, accompanied by a poor appetite, lower endurance. When talking about dizziness, he specifically means the feeling like he is going to faint and episodes where he is near fainting which typically happen with chance of position from sitting to standing and get better when he sits down. This got especially bad in the last week, and today the patient had an episode where he felt like he was about to faint and actually fell, but was caught by his and did not hurt himself. He described feeling palpitations and short of breath at the time, but denies sweats, chest pain, nausea. His appetite and PO intake have been poor over the last 4-5 days, although the patient states he has still been drinking water. Denies abdominal pain, diarrhea, constipation, fevers/chills, weight loss. He does describe occasional chest pains, last a few weeks ago, which feel just like when I had the blockage before the surgery. He states his muscles have been hurting and he has had no strength.? States he has been urinating more than normal, which is twice a day for him. He denies urinary hesitancy, urgency, dysuria.? ? In the ED, the patient was found to be hypotensive with a BP of 69/47. After receiving 2 L of LR, it did improve to SBP in the 80s. On insertion of martinez catheter, 150 cc of urine came out (after 2 L of IV hydration). 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 CT head was obtained due to c/o dizziness as well as findings of a horizontal nystagmus in the ED - the study was negative. Hospitalist admission was requested. Because the patient does have evidence of a leukocytosis, a borderline procalcitonin, and an elevated lactate, empiric ceftriaxone is being initiated. His UA and CXR are negative; blood cultures are pending. See Diagnosis Home Meds and New Rx's Prescriptions: Continued chlorthalidone 25 MG tablet 25 mg PO DAILY ibuprofen 800 MG tablet 800 mg PO TID PRN aspirin [Children's Aspirin] 81 MG tablet,chewable 81 mg PO DAILY rosuvastatin [Crestor] 20 MG tablet 40 mg PO DAILY Hold Instructions: Changed by Provider Patient Comments: metoprolol tartrate 25 MG tablet 50 mg PO BID gemfibrozil 600 MG tablet 600 mg PO BID acetaminophen [Tylenol] 325 MG tablet 650 mg PO Q6H PRN PRNQty: 30 0RF Held lisinopril 20 MG tablet 20 mg PO DAILY Hold Instructions: Hold until PCP follow up Patient Comments: 10/16/15-on hold per PCP d/t low BP. HM No Action metformin 500 mg tablet 1,000 mg PO BID omeprazole 20 mg capsule,delayed release(DR/EC) 20 mg PO DAILY hydroxyzine HCl 50 mg tablet 50 mg PO BID PRN indomethacin 50 mg capsule 50 mg PO BID Rx Instructions: administer with food or milk allopurinol 100 mg tablet 300 mg PO .qod magnesium oxide 400 mg magnesium capsule 400 mg PO DAILY rosuvastatin 40 mg tablet 40 mg PO DAILY lisinopril 10 mg tablet 10 mg PO DAILY Discharge Instructions Instructions: Acute Kidney Injury (GEN) Stand Alone Forms: Nursing Discharge Form Referrals: Kerry Estrada [Primary Care Provider] - (A nurse will call you with an Apointment in the next 24hours ) Activity:: Activity as Tolerated Equipment/Supplies:: Hinged knee brace Diet:: Resume home diet Discharge Orders Discharge Orders: Discharge Order (Routine); Ordered 03/22/23 Ordered By: Casimiro Cuenca Other Ambulatory Orders: CT cervical spine wo (Routine) Location: None Selected Ordered By: Casimiro Cuenca Discharge Data Discharge Date/Time-TO BE ENTERED AT DEPARTURE: 03/22/23 16:26 DS: Summary Time Spent with Patient providing and/or coordinating discharge services: Less than 30 minutes Status at Discharge Functional status at discharge: independent ambulation Overall status at discharge: patient is progressing back to baseline Mental Status: mental status grossly normal Speech and Movement: speech and movement normal Mood: congruent mood Affect: normal affect Exam Psych Mental Status: mental status grossly normal Speech and Movement: speech and movement normal Mood: congruent mood Affect: normal affect DS: Data Vitals/I&O Vitals and I&O: Vital Signs Temperature 36 C L 03/22/23 15:48 Temperature Source Tympanic 03/22/23 15:48 Pulse 62 03/22/23 15:48 Pulse Rhythm Regular 03/22/23 09:00 Pulse 74 03/21/23 19:43 Respiratory Rate 18 03/22/23 15:48 Respiratory Effort Normal 03/22/23 09:00 Respiratory Depth Normal 03/22/23 09:00 Respiratory Pattern Normal 03/22/23 09:00 Blood Pressure 144/84 H 03/22/23 15:48 Blood Pressure Mean 78 03/21/23 19:43 Blood Pressure Position Supine 03/21/23 03:58 Pulse Oximetry 97 03/22/23 15:48 Oxygen Delivery Method Room Air 03/22/23 15:48 Oxygen Flow Rate 0 03/22/23 15:48 Pain Level 8 03/22/23 13:25 Comment RN informed of temp - will retake with oral 03/22/23 11:12 Intake & Output 03/22/23 03/22/23 03/23/23 11:59 23:59 11:59 Intake Total 400 / 400 Output Total 300 / 300 Balance 100 / 100 Weight 94.9 kg Intake: IV 50 / 50 Oral 350 / 350 Output: Urine 300 / 300 Other: Urine Color Yellow Urine Appearance Clear Urine Odor Normal Voiding Methods Toilet Data Completed and Pending Labs on day of discharge: Labs from last 24 hours 03/22/23 03/20/23 06:03 01:30 Sodium 139 Potassium 3.3 L Chloride 103 Carbon Dioxide 24.1 Anion Gap 11.9 H BUN 50 H Creatinine 2.5 H D Est GFR (CKD-EPI 2020) 27.99 Glucose 143 H Calcium 8.6 Magnesium 1.6 L Urine Urea Nitrogen 318 Preliminary micro results at discharge 03/20/23 20:40 Blood Culture - Preliminary Blood NO GROWTH 48 HOURS 03/20/23 20:40 Blood Culture - Preliminary Blood NO GROWTH 48 HOURS PFSH All Active Problems (Updated 10/09/23 @ 00:02 by CALLIE ESPINOZA) Near syncope (Acute) Dehydration (Acute) Alcohol abuse (Chronic) Obesity (Chronic) Left arm weakness (Acute) Abdominal pain (Acute) Enteritis (Acute) Incarcerated ventral hernia (Acute) Postop check (Acute) Fever (Acute) Hypokalemia (Acute) Medical History Diabetes HTN (hypertension) Hypercholesterolemia CAD (coronary artery disease) Gout Surgical History Fx tibia/fibula shaft-op S/P CABG (coronary artery bypass graft) S/P hernia repair incarcerated ventral hernia with small bowel resection (02/21/18) Family History Other Breast cancer Social History Smoking/Tobacco Use Status: Never Smoking risk assessment performed?: Yes Alcohol Intake: current Alcohol Intake frequency: a few times a week Alcohol type: beer Drug use: Never Substance use type: does not use Housing: house Do you feel safe at home: No Do you feel safe in your relationship?: No Time Spent with Patient Time Spent with Patient: <45 minutes Time was spent: preparing to see the patient(eg.review tests), obtaining and/or reviewing separately otained hiistory, ordering medications,tests, procedures, referring, communicating with other health manager respiratory care and indepentently interpreting results
--- NOTE | 2023-03-25 16:50 | PT.INDS ---
Date of service: 03/22/23 PT Notes Visit Reasons: MADONNA, Hypotension, Dehydration Physical Therapy Inpatient Discharge Summary Date: 03/22/2023 Dates of service: 03/21/2023 through 03/22/2023 This is a clinical summary of care provided for the duration of dates listed above. No charge was made in the completion of this documentation. Referring Doctor:? Dr. Renae PT Orders: PT CONSULT: limited ability to ambulate Precautions: fall, standard Patient Profile/Admitting Diagnosis:?? Patient admitted 03/20/23 due to MADONNA in the presence of?hypotension, dehydration, suspected infection, without obvious source. PMHx: All Active Problems?(Updated 03/20/23 @ 21:56 by Peter Carney MD) MADONNA (acute kidney injury) (Acute) Abdominal pain (Acute) Enteritis (Acute) Incarcerated ventral hernia (Acute) Postop check (Acute) Fever (Acute) Hypokalemia (Acute) Medical History? CAD (coronary artery disease) Diabetes Gout HTN (hypertension) Hypercholesterolemia Surgical History? Fx tibia/fibula shaft-op incarcerated ventral hernia with small bowel resection (02/21/18) S/P CABG (coronary artery bypass graft) S/P hernia repair Social History/Home Situation: Lives in a private home with 3 ERIC. 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 Independent at baseline, without AD. Cares for his 16 year old granddaughter, whom he adopted. Equipment Owned/DME: none Subjective: NT. See most recent TELEVISION ANCHOR notes. Objective:? General Observation: NT. See most recent TELEVISION ANCHOR notes. Mental Status: NT. See most recent TELEVISION ANCHOR notes. Pain: NT. See most recent TELEVISION ANCHOR notes. ROM: Right Upper Extremity: WFL Left Upper Extremity: WFL Right Lower Extremity: WFL Left Lower Extremity: WFL Strength: Right Upper Extremity: Shoulder flexion 4+/5, AB 4/5, biceps 5/5. Left Upper Extremity: Shoulder flexion 3+/5. AB 3/5. Biceps 4/5. Right Lower Extremity: Hip flexion 5/5. Quads 5/5. Ankle DF 5/5. Left Lower Extremity: Hip flexion 4-/5. Quads 3/5. Ankle DF 3+/5. BED MOBILITY/TRANSFERS? Rolling L/R: independent Supine-sit: independent? Sit-supine: independent ? Sit-stand: independent? Stand-sit: independent ? Bed-Chair: independent ? Chair-bed: independent ? GAIT? Assistive Device: front wheeled walker, trialled single point cane but patient was unsteady and not confident or comfortable. ? Weight bearing: full Assist: independent ? Distance:? 30 feet? Deviation: wide base of support, shortened step length.? Balance:? Static Sitting: normal Dynamic Sitting: good Static Standing: fair Dynamic Standing: fair 4-Position Balance Test: 0/4 Special Tests: Fine motor: diminished with thumb to digit tapping Coordination: decreased accuracy with alternating toe taps and forearm pronation/supination Rhomberg: (+) Assessment:?? Patient now modified independent with FWW for all mobility ADL performance. Goals: Goals X1 week 1. Supine-Sit : independent MET 2. Sit-Supine : independent MET 3. Sit-Stand : supervision MET 4. Stand-Sit supervision MET 5. Bed-Chair : supervision without AD NOT MET 6. Chair-Bed : supervision without AD NOT MET 7. Gait : Able to ambulate 50' without AD NOT MET 8. Stairs : able to manage 5 steps with single rail, supervision only NOT MET 9. Independent with home exercise program NOT MET DISCHARGE RECOMMENDATIONS: Home with PT TREATMENT CODE/TIME: NC Thank you for the opportunity to participate in the care of this patient. Tatianna Kay PT, DPT, CLT [facility] [place], [place]
== END 2023-03-22 16:26 | disposition home or self-care (01) | DRG 684 ==
LOC: ER 22:38 → ICU 23:18 → MS 03-21 22:23
PROVIDERS: Internal Medicine; Admitting Provider Family Medicine; Emergency Provider Emergency Medicine; PCP Nurse Practitioner Family; Visit Provider Family Medicine
DX: N17.9 Acute kidney failure, unspecified (principal); I95.9 Hypotension, unspecified; E86.0 Dehydration; R55 Syncope and collapse; R53.1 Weakness; E83.42 Hypomagnesemia; I25.10 Atherosclerotic heart disease of native coronary artery without angina pectoris; Z95.1 Presence of aortocoronary bypass graft; E11.9 Type 2 diabetes mellitus without complications; I10 Essential (primary) hypertension; E66.9 Obesity, unspecified; Z68.33 Body mass index [BMI] 33.0-33.9, adult; M10.9 Gout, unspecified; E78.00 Pure hypercholesterolemia, unspecified; E87.6 Hypokalemia; Z79.84 Long term (current) use of oral hypoglycemic drugs; M25.562 Pain in left knee; W19.XXXA Unspecified fall, initial encounter; K43.9 Ventral hernia without obstruction or gangrene
CPT/HCPCS: 36415; 80048; 80053; 82550; 84145; 87040; 93005; 97116; 97162; 99285; 70450; 70551; 71046; 73560; 74176; 81003; 81015; 82565; 83605; 83735; 84439; 84443; 84484; 84540; 84550; 85025; 86140; 93010; 99233; 99239; 99291; J1644; J3475

== ENCOUNTER 2023-04-05 13:24 | Outpatient (REF) | payer MEDICAID, SELFPAY ==
[2023-04-05 17:47] LABS: Iron 83 ug/dL (65-175); Total Iron Binding Capacity 251 ug/dL (250-450); Transferrin Sat 33 % (20-55)
[2023-04-05 18:01] LABS: ALT 85 U/L (16-63); AST 37 U/L (15-37); Albumin 4.2 g/dL (3.4-5.0); Alkaline Phosphatase 79 U/L (46-116); Anion Gap 9.7 mmol/L (3-11); BUN 16 mg/dL (7-18); Bilirubin, Total 0.5 mg/dL (0.2-1.0); CO2 28.3 mmol/L (21.0-32.0); CREATININE 1.5 mg/dL (0.70-1.30); Calcium 9.3 mg/dL (8.5-10.1); Chloride 103 mmol/L (98-107); Cholesterol 257 mg/dL (<200); Estimated GFR 51.67 (mL/min/1.73m2); Ferritin 287 ng/mL (26-388); Glucose 141 mg/dL (74-106); HDL Cholesterol 31 mg/dL (40-60); Magnesium 1.4 mg/dL (1.8-2.4); Sodium 141 mmol/L (136-145); Total Protein 7.3 g/dL (6.4-8.2); Triglyceride 874 mg/dL (<150)
[2023-04-05 18:14] LABS: LDL CHOLESTEROL 87 mg/dL (<100)
[2023-04-05 18:23] LABS: Uric Acid 8.3 mg/dL (3.5-7.2)
[2023-04-05 18:36] LABS: Vitamin D 25 Total 19.3 ng/mL (30-100)
[2023-04-05 18:42] LABS: Hemoglobin A1C 7.4 % (<5.7)
== END 2023-04-05 13:25 | disposition home or self-care (01) ==
LOC: NCHCN 13:24
PROVIDERS: PCP Nurse Practitioner Family; Visit Provider Nurse Practitioner Family
DX: E11.9 Type 2 diabetes mellitus without complications (principal); E78.1 Pure hyperglyceridemia; N17.9 Acute kidney failure, unspecified; R78.89 Finding of other specified substances, not normally found in blood; M10.9 Gout, unspecified; E55.9 Vitamin D deficiency, unspecified
CPT/HCPCS: 80053; 80061; 82306; 83721; 82728; 83036; 83540; 83550; 83735; 84550

== ENCOUNTER 2023-04-13 01:09 | Outpatient (CLI) | payer MEDICAID, SELFPAY ==
--- NOTE | 2023-04-13 | DI.CT_ITS ---
Exam(s) CT CERVICAL SPINE WO EXAM: CT CERVICAL SPINE WO CLINICAL HISTORY: LT ARM WEAKNESS,CVA RULED OUT, R29.898. TECHNIQUE: Imaging Protocol: Axial computed tomography images with coronal and sagittal reformatted images were created and reviewed COMPARISON: No exams were available for comparison FINDINGS: Bones: No fracture or dislocations are seen. There is straightening of the normal cervical lordosis. Disc space narrowing is seen at C3-C4, C5-C6. Endplate osteophytes are present throughout the cervi abdullahi spine. Degenerative changes of the facets are seen throughout the cervical spine. The findings are most marked at C3-4 and C4-C5. No suspicious lytic or sclerotic lesions are present. C2-3: No focal disc herniation, central spinal canal or neural foraminal stenosis. C3-4: There is mild prominence of the osteophyte disc complex. No significant central spinal canal s tenosis is seen. Degenerative changes of the facets are present, right greater than left. The findi ngs result in moderate right neural foraminal stenosis. There is mild left neural foraminal stenosis . C4-5: There is no significant central spinal canal stenosis. There are degenerative changes of the f acets greater on the right. This results in marked right neural foraminal stenosis. No significant left neural foraminal stenosis. C5-6: No significant central spinal canal stenosis is seen. Uncovertebral joint and facet arthropath y is present. The findings result in marked right neural foraminal stenosis. Mild left neural raimundo inal stenosis. C6-7: There is no significant central spinal canal stenosis. Uncovertebral joint hypertrophy is seen bilaterally. The findings result in moderate bilateral neural foraminal stenosis. C7-T1: No focal disc herniation, central spinal canal or neural foraminal stenosis. Soft Tissues: The soft tissues of the neck are unremarkable. The visualized lung apices are clear. IMPRESSION: 1. Moderately severe cervical spondylosis. 2. On the left, the findings are most marked at C6-C7 where there is moderate neural foraminal stenos is. 3. On the right, the findings are most marked at C4-C5 and C5-C6. RADIATION DOSE DELIVERED: 539.27mGy.cm Total DLP 539.27mGy.cm Total DLP DATA REPOSITORY: All CT scans at this facility are submitted to the National Radiology Data Registry (NRDR) Dose Index Registry (DIR) with the [employer] (ACR). RADIATION OPTIMIZATION: All CT scans at this facility use at least one of these dose optimization te chniques: automated exposure control; mA and/or kV adjustment per patient size (includes targeted exa ms where dose is matched to clinical indication); or iterative reconstruction.
== END 2023-04-13 01:29 ==
LOC: DI 01:09
PROVIDERS: PCP Nurse Practitioner Family; Visit Provider Family Medicine
DX: M47.812 Spondylosis without myelopathy or radiculopathy, cervical region (principal)
CPT/HCPCS: 72125

== ENCOUNTER 2023-04-13 10:42 | Outpatient (CLI) | payer MEDICAID, SELFPAY ==
--- NOTE | 2023-04-13 10:23 | DI.RAD_ITS ---
Exam(s) XR KNEE RT 3V AP,LAT,CHARLES EXAM: XR KNEE RT 3V AP,LAT,CHARLES CLINICAL HISTORY: RT KNEE PAIN, M25.561. TECHNIQUE: 2D digital imaging was performed of the right knee. Three views obtained. AP, lateral an d PA tunnel views were obtained. COMPARISON: No priors for comparison. FINDINGS: BONES: No acute fracture is present. No bony destructive lesion is seen. JOINTS: The knee is normally aligned. No joint effusion is seen. Mild spurring is seen at the posteri or patella. SOFT TISSUE: There is chondrocalcinosis. Soft tissue calcifications are also seen lateral to the lat eral femoral condyle. IMPRESSION: 1. Minimal degenerative changes of the knee. 2. Chondrocalcinosis which can be seen with CPPD arthropathy. DATA REPOSITORY: RADIATION DOSE DELIVERED:
== END 2023-04-13 11:02 ==
LOC: DI 10:42
PROVIDERS: PCP Nurse Practitioner Family; Visit Provider Nurse Practitioner Family
DX: M25.561 Pain in right knee (principal); M11.261 Other chondrocalcinosis, right knee
CPT/HCPCS: 73562

== ENCOUNTER 2023-04-26 11:10 | Outpatient (REF) | payer MEDICAID, SELFPAY ==
[2023-04-26 16:49] LABS: Anion Gap 8.6 mmol/L (3-11); BUN 11 mg/dL (7-18); CO2 28.4 mmol/L (21.0-32.0); CREATININE 1.3 mg/dL (0.70-1.30); Calcium 9.2 mg/dL (8.5-10.1); Chloride 102 mmol/L (98-107); Estimated GFR 61.35 (mL/min/1.73m2); Glucose 157 mg/dL (74-106); Magnesium 1.7 mg/dL (1.8-2.4); Potassium 4.7 mmol/L (3.5-5.1); Sodium 139 mmol/L (136-145)
== END 2023-04-26 11:11 | disposition home or self-care (01) ==
LOC: NCHCN 11:10
PROVIDERS: PCP Nurse Practitioner Family; Visit Provider Family Medicine
DX: I10 Essential (primary) hypertension (principal); N17.9 Acute kidney failure, unspecified
CPT/HCPCS: 80048; 83735

== ENCOUNTER 2023-04-29 03:25 | Outpatient (CLI) | payer MEDICAID, SELFPAY ==
--- NOTE | 2023-04-29 | DI.MRI_ITS ---
Exam(s) MR LOWER JOINT LT WO EXAM: MR LOWER JOINT LT WO CLINICAL HISTORY: LEFT KNEE PAIN M25.562. TECHNIQUE: Multiplanar multisequence MRI was performed. COMPARISON: CR,XR XR KNEE LT 2V AP,LAT from 03/21/2023 CR XR KNEE RT 3V AP,LAT,CHARLES from 04/13/2023 FINDINGS: BONES: There is no fracture or contusion pattern. JOINTS: A small joint effusion is present. Articular cartilage: Patellofemoral joint: Articular cartilage is unremarkable. Medial femoral tibial joint: Articular cartilage is unremarkable. Lateral femoral tibial joint: Articular cartilage is unremarkable. TENDONS: Extensor mechanism: Unremarkable. Medial retinaculum: Unremarkable. Lateral retinaculum: Unremarkable. Popliteus: Unremarkable. MUSCLES: Unremarkable. MENISCI: The medial meniscus is unremarkable. The lateral meniscus is unremarkable. SOFT TISSUES: Small popliteal cyst. Calcifications located lateral to the lateral femoral condyle on plain films are located directly adjacent to the lateral femoral condyle between the lateral colla teral ligament. There is an adjacent bony declivity but no abnormal signal in the marrow. Findings a re consistent with a longstanding process. Chondrocalcinosis is visible on plain film but not visible on the current exam. LIGAMENTS: Anterior Cruciate: Unremarkable. Posterior Cruciate: Unremarkable. Medial Collateral:Unremarkable. Lateral Collateral: Unremarkable. IMPRESSION: No evidence of ligament tear or meniscal tear. Calcifications noted between the lateral femoral condyle lateral collateral ligament may be related t o CPPD deposition disease. Chondrocalcinosis also present. Small joint effusion and small Ervin's cyst. DATA REPOSITORY:
== END 2023-04-29 03:45 ==
LOC: DI 03:25
PROVIDERS: PCP Nurse Practitioner Family; Visit Provider Nurse Practitioner Family
DX: M11.262 Other chondrocalcinosis, left knee (principal); M25.462 Effusion, left knee
CPT/HCPCS: 73721

== ENCOUNTER 2023-06-21 18:38 | Outpatient (REF) | payer MEDICAID, SELFPAY ==
[2023-06-21 20:49] LABS: Hemoglobin A1C 6.7 % (<5.7)
[2023-06-21 21:17] LABS: ALT 59 U/L (16-63); AST 45 U/L (15-37); Albumin 4.3 g/dL (3.4-5.0); Alkaline Phosphatase 52 U/L (46-116); Anion Gap 13.3 mmol/L (3-11); BUN 27 mg/dL (7-18); Bilirubin, Total 0.5 mg/dL (0.2-1.0); CO2 24.7 mmol/L (21.0-32.0); CREATININE 1.8 mg/dL (0.70-1.30); Chloride 101 mmol/L (98-107); Cholesterol 145 mg/dL (<200); Estimated GFR 41.51 (mL/min/1.73m2); Glucose 187 mg/dL (74-106); HDL Cholesterol 38 mg/dL (40-60); Magnesium 1.1 mg/dL (1.8-2.4); Potassium 4.4 mmol/L (3.5-5.1); Sodium 139 mmol/L (136-145); Total Protein 7.4 g/dL (6.4-8.2); Triglyceride 471 mg/dL (<150)
[2023-06-21 21:42] LABS: LDL CHOLESTEROL 57 mg/dL (<100)
[2023-06-21 21:55] LABS: Uric Acid 5.8 mg/dL (3.5-7.2)
== END 2023-06-21 18:39 | disposition home or self-care (01) ==
LOC: NCHCN 18:38
PROVIDERS: PCP Nurse Practitioner Family; Visit Provider Nurse Practitioner Family
DX: E11.9 Type 2 diabetes mellitus without complications (principal); E78.1 Pure hyperglyceridemia; M10.9 Gout, unspecified; I10 Essential (primary) hypertension
CPT/HCPCS: 80053; 80061; 83721; 83036; 83735; 84550

== ENCOUNTER 2023-09-08 10:36 | Emergency (ER) | payer MEDICAID, SELFPAY ==
[2023-09-08] VITALS (37 sets, daily range): BP systolic 105–182; BP diastolic 62–162; PULSE 56–78; RESP 9–27; TEMP 36.6; O2SAT 99
--- NOTE | 2023-09-08 11:00 | RT.EKG_ITS ---
APPROVED REPORT Exam: Resting ECG Reason for Exam: AMS Patient Location: E HR:70 bpm ECG Measurements Heart Rate 70 AXIS IA 207 P 2 QRSd 94 QRS -68 QT 405 T 49 QTc 438 Conclusion Sinus rhythm...normal P axis, V-rate 60- 99 Inferior infarct, old...Q >35mS, II III aVF Anterior infarct, old...Q >40mS, abnormal ST-T, V2-V5 Sinus rhythm, inferior and anterior q waves, no change from prior 03/20/23. WD
--- NOTE | 2023-09-08 11:00 | DI.RAD_ITS ---
Exam(s) XR PORTABLE CHEST AP EXAM: XR PORTABLE CHEST AP CLINICAL HISTORY: cough TECHNIQUE: 2D digital imaging was performed. COMPARISON: CR,XR XR CHEST 2V PA LATERAL from 03/20/2023 FINDINGS: LUNGS: Clear. No pleural abnormality seen. HEART: Normal size. Status post CABG. AORTA: Normal diameter. BONES: Sternal wires. Soft tissues: Unremarkable. IMPRESSION: No acute findings. DATA REPOSITORY: RADIATION DOSE DELIVERED:
[2023-09-08 11:17] LABS: Abs Immature Grans 0.03 10^3/uL (0.0-0.06); Absolute Basophil Count 0.06 10^3/uL (0.0-0.2); Absolute Eosinophil Count 0.19 10^3/uL (0.0-0.7); Absolute Lymphocyte Count 0.99 10^3/uL (1.2-3.4); Absolute Monocyte Count 0.93 10^3/uL (0.1-0.8); Absolute Neutrophil Count 6.45 10^3/uL (1.2-6.7); Basophils % 0.7; Eosinophils % 2.2; HCT 48.7 % (40.0-50.0); HGB 17.3 g/dL (13.5-17.5); Immature Grans % 0.3; Lymphocytes % 11.4; MCH 31.5 pg (27.0-33.0); MCHC 35.5 % (32.0-36.0); MCV 89 fL (80-95); MPV 10.2 fL (8.0-11.0); Monocytes % 10.8; Neutrophils % 74.6; Platelet Count 285 10^3/uL (130-400); RDW 13.2 % (11.8-14.1); RDW-SD 43.2 fL; WBC 8.65 10^3/uL (4.4-10.8)
--- NOTE | 2023-09-08 11:17 | ED.GENADUL_ITS ---
Discharge Plan Disposition Patient Disposition: Home Condition: Improving Discharge Details Clinical Impression: Nausea, vomiting, and diarrhea, Weakness Primary Care Provider: Kerry Estrada ED Provider: Melly Rojas Home Meds and New Rx's Prescriptions: No Action chlorthalidone 25 MG tablet 25 mg PO DAILY metformin 500 mg tablet 1,000 mg PO BID omeprazole 20 mg capsule,delayed release(DR/EC) 20 mg PO DAILY hydroxyzine HCl 50 mg tablet 50 mg PO BID PRN indomethacin 50 mg capsule 50 mg PO BID Rx Instructions: administer with food or milk allopurinol 100 mg tablet 300 mg PO .qod magnesium oxide 400 mg magnesium capsule 400 mg PO DAILY ibuprofen 800 MG tablet 800 mg PO TID PRN lisinopril 20 MG tablet 20 mg PO DAILY Hold Instructions: Hold until PCP follow up Patient Comments: 10/16/15-on hold per PCP d/t low BP. HM aspirin [Children's Aspirin] 81 MG tablet,chewable 81 mg PO DAILY rosuvastatin [Crestor] 20 MG tablet 40 mg PO DAILY Hold Instructions: Changed by Provider Patient Comments: metoprolol tartrate 25 MG tablet 50 mg PO BID gemfibrozil 600 MG tablet 600 mg PO BID acetaminophen [Tylenol] 325 MG tablet 650 mg PO Q6H PRN PRNQty: 30 0RF rosuvastatin 40 mg tablet 40 mg PO DAILY lisinopril 10 mg tablet 10 mg PO DAILY Discharge Instructions Instructions: Acute Nausea and Vomiting (ED), Weakness (ED) Referrals: Kerry Estrada [Primary Care Provider] - 1 week Discharge Data Discharge Physician: Melly Rojas Medical Decision Making 63-year-old male presents for evaluation of nausea, vomiting, diarrhea, and weakness. Patient was given IV fluids. Laboratory studies show mildly elevated lactic acid. Remainder of laboratory studies otherwise unremarkable. Troponin was normal. EKG did not show any acute ischemic changes. Patient received 2 L of IV fluid. He feels significantly improved. He is tolerating p.o. He is requesting discharge home. He did have a second troponin and lactic acid drawn prior to discharge. These both are normal. Patient is able to ambulate without any weakness now. I do feel it is reasonable for discharge home. UA was negative for infection. He understands a blood cultures are pending. Continue oral hydration at home and understands indications to return. HPI General Date/Time Provider Initiated Documentation: 09/08/23 10:44 . HPI Narrative: 63-year-old male with history of coronary disease, hypertension presents for evaluation of weakness. Patient states that he started feeling sick 1 week ago. He has had significant amount of nausea and vomiting. He denies any abdominal pain. He has had diarrhea. Denies any blood in his stool or vomit. He is urinating. He states that the urine is darker than usual. Denies any increased urinary frequency, dysuria, or gross hematuria. Denies any fevers or chills. No cough or cold. No chest pain or shortness of breath. He does have history of abdominal hernia which has been repaired multiple times in the past. He has not taken a flu or COVID test. No known sick contacts. Related Data Home Medications Medication Instructions Recorded Confirmed aspirin 81 mg chewable tablet 81 mg PO DAILY 07/25/14 09/08/23 (Children's Aspirin) ibuprofen 800 mg tablet 800 mg PO TID PRN 07/25/14 09/08/23 lisinopril 20 mg tablet 20 mg PO DAILY 07/25/14 09/08/23 metoprolol tartrate 25 mg tablet 50 mg PO BID 07/25/14 09/08/23 rosuvastatin 20 mg tablet (Crestor) 40 mg PO DAILY 07/25/14 09/08/23 gemfibrozil 600 mg tablet 600 mg PO BID 09/09/15 09/08/23 chlorthalidone 25 mg tablet 25 mg PO DAILY 10/16/15 09/08/23 acetaminophen 325 mg tablet 650 mg (2 x 325 mg) PO Q6H PRN PRN 02/28/18 09/08/23 (Tylenol) #30 tabs allopurinol 100 mg tablet 300 mg PO .qod 04/01/23 09/08/23 hydroxyzine HCl 50 mg tablet 50 mg PO BID PRN 04/01/23 09/08/23 indomethacin 50 mg capsule 50 mg PO BID 04/01/23 09/08/23 magnesium oxide 400 mg PO DAILY 04/01/23 09/08/23 metformin 500 mg tablet 1,000 mg PO BID 04/01/23 09/08/23 omeprazole 20 mg capsule,delayed 20 mg PO DAILY 04/01/23 09/08/23 release lisinopril 10 mg tablet 10 mg PO DAILY 09/08/23 09/08/23 rosuvastatin 40 mg tablet 40 mg PO DAILY 09/08/23 09/08/23 Previous Rx's Medication Instructions Recorded acetaminophen 325 mg tablet 650 mg (2 x 325 mg) PO Q6H PRN PRN 02/28/18 (Tylenol) #30 tabs Allergies Allergy/AdvReac Type Severity Reaction Status Date / Time No Known Allergies Allergy Verified 09/08/23 11:33 General Stated Complaint: GenMedical YEHUDA: 3 Review of Systems Narrative: Remainder of review of systems otherwise negative except for as noted in HPI x 10. PFSH All Active Problems (Updated 09/08/23 @ 14:47 by Melly Rojas MD) Weakness (Acute) Nausea, vomiting, and diarrhea (Acute) Near syncope (Acute) Dehydration (Acute) Alcohol abuse (Chronic) Obesity (Chronic) Left arm weakness (Acute) Abdominal pain (Acute) Enteritis (Acute) Incarcerated ventral hernia (Acute) Postop check (Acute) Fever (Acute) Hypokalemia (Acute) Medical History Diabetes HTN (hypertension) Hypercholesterolemia CAD (coronary artery disease) Gout Surgical History Fx tibia/fibula shaft-op S/P CABG (coronary artery bypass graft) S/P hernia repair incarcerated ventral hernia with small bowel resection (02/21/18) Family History Other Breast cancer Social History Smoking/Tobacco Use Status: Never Smoking risk assessment performed?: Yes Alcohol Intake: current Alcohol Intake frequency: a few times a week Alcohol type: beer Drug use: Never Substance use type: does not use Housing: house Do you feel safe at home: No Do you feel safe in your relationship?: No Exam Narrative Exam Narrative: General: non-toxic, no respiratory distress, comfortable HEENT: normocephalic, atraumatic, lids and lashes normal, PERRL, EOMI, anicteric sclera, no conjunctival injection, dry oral mucosa Card: regular rate and rhythm, S1S2, no murmurs, rubs, or gallops Lungs: good air entry, clear to auscultation bilaterally. no wheezes, rales, rhonchi, or retractions Abd: soft, non-tender, non-distended, normal bowel sounds, no rebound or guarding, no peritoneal signs, well-healed anterior abdominal incisions Musculoskeletal: full range of motion of arms and legs, no tenderness to palpation. no clubbing, cyanosis, or edema Neurologic: GCS of 15, CN 2-12 intact, speech normal, sensation tact, a ppropriate for age, strength normal Psych: alert and oriented Skin: no petechiae, no lesions, warm and dry Course Vital Signs Vital signs: Vital Signs Temperature 36.6 C 09/08/23 10:42 Pulse 78 09/08/23 10:42 Respiratory Rate 16 09/08/23 10:42 Blood Pressure 149/90 H 09/08/23 10:42 Pulse Oximetry 99 09/08/23 10:42 Temperature 36.6 C 09/08/23 10:42 Temperature Source Oral 09/08/23 10:42 Pulse 78 09/08/23 10:42 Respiratory Rate 16 09/08/23 10:42 Blood Pressure 149/90 H 09/08/23 10:42 Pulse Oximetry 99 09/08/23 10:42 Oxygen Delivery Method Room Air 09/08/23 10:42 Oxygen Flow Rate 0 09/08/23 10:42 Lab/Test Results Lab/Test Results: 09/08/23 11:09 Blood Blood Culture - Pending 09/08/23 11:09 Blood Blood Culture - Pending
[2023-09-08] MEDS: Normal Saline 1,000 ML 1000 ML IV ×2 (11:29→12:50)
[2023-09-08] MEDS: Ondansetron 4 MG/2 ML VIAL IVP (11:30)
[2023-09-08 11:42] LABS: ALT 36 U/L (16-63); AST 28 U/L (15-37); Albumin 4.7 g/dL (3.4-5.0); Alkaline Phosphatase 53 U/L (46-116); Anion Gap 13.4 mmol/L (3-11); BUN 40 mg/dL (7-18); CO2 24.6 mmol/L (21.0-32.0); CREATININE 2.7 mg/dL (0.70-1.30); Calcium 10.2 mg/dL (8.5-10.1); Chloride 95 mmol/L (98-107); Estimated GFR 25.52 (mL/min/1.73m2); Glucose 153 mg/dL (74-106); Lipase 61 U/L (16-77); Potassium 3.5 mmol/L (3.5-5.1); Sodium 133 mmol/L (136-145); Total Protein 8.3 g/dL (6.4-8.2); Troponin I < 50 ng/L (<or=60)
--- NOTE | 2023-09-08 12:15 | DI.CT_ITS ---
Exam(s) CT ABDOMEN PELVIS WO EXAM: CT ABDOMEN PELVIS WO CLINICAL HISTORY: vomiting, diarrhea. TECHNIQUE: Imaging Protocol: Axial computed tomography images with coronal and sagittal reformatted images were created and reviewed. Oral: no COMPARISON: CT CT RENAL COLIC WO from 03/20/2023 FINDINGS: ABDOMEN: Lung Bases: No acute findings. Liver: Normal density. No measurable mass. Gallbladder and biliary tract: No radiodense calculus or dilation. Pancreas: Normal density, no abnormal calcifications or inflammatory process. Spleen: Normal. Kidneys: Lytic kidney no radiodense stones or obstructive uropathy. No masses seen. Adrenal glands: No masses seen. Lymph nodes: Within normal limits. Abdominal Aorta: Abdominal portion non-dilated. Soft tissues: Marked dehiscence of the anterior abdominal wall again noted. PELVIS: Bladder: No wall thickening. No mass or calculi. Bowel: No obstruction or bowel wall thickening. No evidence of appendicitis. Peritoneal cavity: No ascites, collection or mesenteric inflammatory response. Reproductive organs: Within normal limits. Bones: Unremarkable for age.. IMPRESSION: No acute abnormality the abdomen and pelvis. RADIATION DOSE DELIVERED: Total DLP DATA REPOSITORY: All CT scans at this facility are submitted to the National Radiology Data Registry (NRDR) Dose Index Registry (DIR) with the [employer] (A[employer]). RADIATION OPTIMIZATION: All CT scans at this facility use at least one of these dose optimization te chniques: automated exposure control; mA and/or kV adjustment per patient size (includes targeted exa ms where dose is matched to clinical indication); or iterative reconstruction.
[2023-09-08 12:16] LABS: COVID-19 PCR Negative (Negative); Influenza A PCR Negative (Negative); Influenza B PCR Negative (Negative); RSV PCR Negative (Negative)
[2023-09-08 12:18] LABS: Source Nasopharynx
[2023-09-08 13:50] LABS: Bilirubin Negative (Negative); Blood Negative (Negative); Clarity Clear (Clear); Glucose Negative (Negative); Ketones Negative (Negative); Leukocyte Esterase Negative (Negative); Nitrite Negative (Negative); Specific Gravity 1.015 (1.005-1.025); Urobilinogen 0.2 mg/dL (Up to 0.2)
[2023-09-08 13:59] LABS: Epithelial Cells Rare HPF (Negative); Other Cells Rare Transitional (Negative); RBC 0-2 HPF (0-2); WBC 0-2 HPF (0-5)
[2023-09-08 14:00] LABS: Bacteria Negative HPF (Negative); C & S Indicated? No; Casts 3-5 Hyaline LPF (Negative); Crystals Negative HPF (Negative); Mucus Negative (Negative)
[2023-09-08 14:03] LABS: Lactate 0.9 mmol/L (0.6-1.4)
[2023-09-08 14:24] LABS: Troponin I < 50 ng/L (<or=60)
== END 2023-09-08 14:58 | disposition home or self-care (01) ==
PROVIDERS: Emergency Provider Emergency Medicine Emergency Medical Services; PCP Nurse Practitioner Family
DX: R53.1 Weakness (principal); R11.2 Nausea with vomiting, unspecified; R41.0 Disorientation, unspecified; I25.10 Atherosclerotic heart disease of native coronary artery without angina pectoris; Z79.82 Long term (current) use of aspirin; Z79.899 Other long term (current) drug therapy; I10 Essential (primary) hypertension; E11.9 Type 2 diabetes mellitus without complications; Z79.84 Long term (current) use of oral hypoglycemic drugs
CPT/HCPCS: 36410; 80053; 83690; 87040; 87637; 93005; 96361; 96374; 99285; 71045; 74176; 81003; 81015; 83605; 83735; 84484; 85025; 93010; 99284; J2405

== ENCOUNTER 2023-11-18 09:22 | Outpatient (REF) | payer MEDICAID, SELFPAY ==
[2023-11-18 15:56] LABS: ALT 30 U/L (16-63); AST 32 U/L (15-37); Albumin 4.3 g/dL (3.4-5.0); Alkaline Phosphatase 46 U/L (46-116); Anion Gap 9.1 mmol/L (3-11); BUN 27 mg/dL (7-18); Bilirubin, Total 0.5 mg/dL (0.2-1.0); CO2 26.9 mmol/L (21.0-32.0); CREATININE 1.5 mg/dL (0.70-1.30); Calcium 9.5 mg/dL (8.5-10.1); Calculated LDL 32 mg/dL (<100); Chloride 105 mmol/L (98-107); Cholesterol 136 mg/dL (<200); Estimated GFR 51.67 (mL/min/1.73m2); Glucose 172 mg/dL (74-106); HDL Cholesterol 37 mg/dL (40-60); Magnesium 1.8 mg/dL (1.8-2.4); Potassium 4.6 mmol/L (3.5-5.1); Sodium 141 mmol/L (136-145); Total Protein 7.4 g/dL (6.4-8.2); Triglyceride 337 mg/dL (<150)
== END 2023-11-18 09:23 | disposition home or self-care (01) ==
LOC: NCHCN 09:22
PROVIDERS: PCP Nurse Practitioner Family; Referring Provider Nurse Practitioner Family; Visit Provider Nurse Practitioner Family
DX: N17.9 Acute kidney failure, unspecified (principal); E83.42 Hypomagnesemia
CPT/HCPCS: 80053; 80061; 83036; 83735

== ENCOUNTER 2024-03-17 16:21 | Outpatient (REF) | payer MEDICARE, MEDICAID, SELFPAY ==
[2024-03-17 14:48] LABS: ALT 24 U/L (16-63); AST 22 U/L (15-37); Albumin 4.6 g/dL (3.4-5.0); Alkaline Phosphatase 44 U/L (46-116); Anion Gap 8.6 mmol/L (3-11); BUN 22 mg/dL (7-18); Bilirubin, Total 0.69 mg/dL (0.2-1.0); CO2 27.4 mmol/L (21.0-32.0); CREATININE 2.1 mg/dL (0.70-1.30); Calcium 9.8 mg/dL (8.5-10.1); Chloride 98 mmol/L (98-107); Estimated GFR 34.29 (mL/min/1.73m2); Glucose 154 mg/dL (74-106); Potassium 4.6 mmol/L (3.5-5.1); Sodium 134 mmol/L (136-145); Total Protein 7.5 g/dL (6.4-8.2); Uric Acid 4.7 mg/dL (3.5-7.2)
== END 2024-03-17 16:22 | disposition home or self-care (01) ==
LOC: NCHCN 16:21
PROVIDERS: PCP Nurse Practitioner Family; Visit Provider Nurse Practitioner Family
DX: E11.9 Type 2 diabetes mellitus without complications (principal); M10.9 Gout, unspecified
CPT/HCPCS: 80053; 84550

== ENCOUNTER 2024-04-17 09:04 | Outpatient (REF) | payer MEDICARE, MEDICAID, SELFPAY ==
[2024-04-17 17:46] LABS: HCT 45.9 % (40.0-50.0); HGB 16.1 g/dL (13.5-17.5); MCH 32.5 pg (27.0-33.0); MCHC 35.1 % (32.0-36.0); MCV 93 fL (80-95); MPV 10.2 fL (8.0-11.0); Platelet Count 283 10^3/uL (130-400); RBC 4.95 10^6/uL (4.36-5.78); RDW 13.3 % (11.8-14.1); RDW-SD 45.1 fL; WBC 6.91 10^3/uL (4.4-10.8)
[2024-04-17 18:30] LABS: Anion Gap 12.7 mmol/L (3-11); BUN 21 mg/dL (7-18); CO2 28.3 mmol/L (21.0-32.0); CREATININE 1.7 mg/dL (0.70-1.30); Chloride 105 mmol/L (98-107); Estimated GFR 44.18 (mL/min/1.73m2); Glucose 136 mg/dL (74-106); Potassium 4.4 mmol/L (3.5-5.1); Sodium 146 mmol/L (136-145)
== END 2024-04-17 09:05 | disposition home or self-care (01) ==
LOC: NCHCN 09:04
PROVIDERS: PCP Nurse Practitioner Family; Visit Provider Nurse Practitioner Family
DX: E11.9 Type 2 diabetes mellitus without complications (principal); E78.2 Mixed hyperlipidemia; R79.89 Other specified abnormal findings of blood chemistry; N17.9 Acute kidney failure, unspecified; Z01.818 Encounter for other preprocedural examination
CPT/HCPCS: 80048; 85027

== ENCOUNTER 2024-07-07 08:47 | Outpatient (CLI) | payer MEDICARE, MEDICAID, SELFPAY | END 2024-07-07 08:48 | disposition home or self-care (01) | LOC: CARDOPNVT 08:47 | PROVIDERS: PCP Nurse Practitioner Family; Visit Provider Nurse Practitioner Family | DX: I25.10 Atherosclerotic heart disease of native coronary artery without angina pectoris (principal) | CPT/HCPCS: 93246 ==

== ENCOUNTER 2024-07-27 07:52 | Outpatient (CLI) | payer MEDICARE, MEDICAID, SELFPAY ==
--- NOTE | 2024-07-27 12:28 | W.CARDEVENT ---
Date of service: 07/27/24 Time of Service: 12:28 Cardiac Event Recorder Referring Provider:: Kerry Estrada Indications:: PAF Cardiac Event Note: This is a cardiac event monitor. Patient was monitored for 9 days and 22 hours Rhythm throughout was sinus with an average heart rate of 77. Minimum was 51, maximum 114 There were very rare isolated atrial and ventricular ectopic beats There were several very brief self-limited atrial runs. The longest of these was 5 beats in duration There was no atrial fibrillation, no high-grade AV block, no pauses greater than 3 seconds Symptoms had no correlation to any dysrhythmia
== END 2024-07-27 07:53 | disposition home or self-care (01) ==
LOC: CARDOPNVT 07:52
PROVIDERS: PCP Nurse Practitioner Family; Referring Provider Nurse Practitioner Family; Visit Provider Internal Medicine Cardiovascular Disease
DX: I48.0 Paroxysmal atrial fibrillation (principal); I49.1 Atrial premature depolarization
CPT/HCPCS: 93248

== ENCOUNTER 2024-09-25 09:19 | Outpatient (REF) | payer MEDICARE, SELFPAY ==
[2024-09-25 16:18] LABS: ALT 25 U/L (16-63); AST 34 U/L (15-37); Alkaline Phosphatase 38 U/L (46-116); Anion Gap 8.9 mmol/L (3-11); BUN 30 mg/dL (7-18); Bilirubin, Total 1.23 mg/dL (0.2-1.0); CO2 28.1 mmol/L (21.0-32.0); CREATININE 1.8 mg/dL (0.70-1.30); Calcium 9.9 mg/dL (8.5-10.1); Calculated LDL 58 mg/dL (<100); Chloride 107 mmol/L (98-107); Cholesterol 154 mg/dL (<200); Estimated GFR 41.26 (mL/min/1.73m2); Glucose 105 mg/dL (74-106); HDL Cholesterol 33 mg/dL (40-60); Potassium 5.3 mmol/L (3.5-5.1); Sodium 144 mmol/L (136-145); Total Protein 6.9 g/dL (6.4-8.2); Triglyceride 319 mg/dL (<150)
[2024-09-25 16:35] LABS: COMMENT (LAB VIEW ONLY) 83.99 mg/dL; Microalb ug/mg Crea 6.8 ug/mg Cr
== END 2024-09-25 09:20 | disposition home or self-care (01) ==
LOC: NCHCN 09:19
PROVIDERS: PCP Nurse Practitioner Family; Visit Provider Nurse Practitioner Family
DX: E78.2 Mixed hyperlipidemia (principal)
CPT/HCPCS: 80053; 80061; 82043; 82570

== ENCOUNTER 2024-10-27 19:07 | Emergency (ER) | payer MEDICARE, SELFPAY ==
[2024-10-27] VITALS (36 sets, daily range): BP systolic 95–116; BP diastolic 58–77; PULSE 63–82; RESP 8–22; O2SAT 94–100
--- NOTE | 2024-10-27 18:45 | RT.EKG_ITS ---
APPROVED REPORT Exam: Resting ECG Reason for Exam: syncope Patient Location: E HR:72 bpm ECG Measurements Heart Rate 72 AXIS HI 211 P 65 QRSd 101 QRS -69 QT 441 T 37 QTc 483 Conclusion Sinus rhythm...normal P axis, V-rate 60- 99 Inferior infarct, old...Q >35mS, II III aVF No STEMI
[2024-10-27] MEDS: Normal Saline 500 ML IV (19:25)
[2024-10-27] MEDS: Ondansetron 4 MG/2 ML VIAL IVP (19:25)
--- NOTE | 2024-10-27 19:28 | ED.GENADUL_ITS ---
Discharge Plan Disposition Patient Disposition: Home Condition: Stable Discharge Details Clinical Impression: Acute hypokalemia, Syncope, Gastroenteritis, Influenza A Primary Care Provider: Kerry Estrada ED Provider: Tanisha Baumann Home Meds and New Rx's Prescriptions: New oseltamivir [Tamiflu] 75 mg capsule 75 mg PO BID 5 Days Qty: 10 0RF ondansetron 4 mg tablet,disintegrating 4 mg PO TID PRN (Reason: nausea and vomiting) 4 Days Qty: 7 0RF Rx Instructions: Take 1 tablet by mouth 3 times daily as needed for nausea vomiting Continued chlorthalidone 25 MG tablet 25 mg PO DAILY metformin 500 mg tablet 1,000 mg PO BID omeprazole 20 mg capsule,delayed release(DR/EC) 20 mg PO DAILY hydroxyzine HCl 50 mg tablet 50 mg PO BID PRN indomethacin 50 mg capsule 50 mg PO BID Rx Instructions: administer with food or milk allopurinol 100 mg tablet 300 mg PO .qod magnesium oxide 400 mg magnesium capsule 400 mg PO DAILY ibuprofen 800 MG tablet 800 mg PO TID PRN aspirin [Children's Aspirin] 81 MG tablet,chewable 81 mg PO DAILY gemfibrozil 600 MG tablet 600 mg PO BID metoprolol succinate 100 mg tablet extended release 24 hr 100 mg PO DAILY Eliquis 5 mg tablet 5 mg PO BID acetaminophen [Tylenol] 325 MG tablet 650 mg PO Q6H PRN PRNQty: 30 0RF rosuvastatin 40 mg tablet 40 mg PO DAILY lisinopril 10 mg tablet 10 mg PO DAILY Discharge Instructions Instructions: Viral gastroenteritis in adults, High Potassium Diet, Syncope (Fainting) (DC), Flu, Adult ED, Fainting, Adult ED Additional Instructions: He did test positive for flu a today. Please increase oral fluids as discussed including oral electrolyte solution such as Gatorade or similar. Take the nausea medication as directed 20 to 30 minutes before eating or drinking anything. Please stand up slowly. Please return to the ER for any worsening vomiting, dizziness lightheadedness or additional fainting episodes or any concerns. Practice a high potassium diet over the next couple of days. Follow up with primary care provider in 3-5 days. Return to ED sooner if any worsening or concerns. Referrals: Kerry Estrada [Primary Care Provider] - 3 days (Call on Wednesday) HPI General Mode of arrival: EMS . Date/Time Provider Initiated Documentation: 10/27/24 19:18 . Limitations to Documentation: no limitations . Information obtained by: patient, EMS and old records reviewed . HPI Narrative: 64-year-old male presents to the ER via EMS with a chief complaint of syncopal episode. He had a witnessed syncopal episode on the toilet, he has some bruising and a small abrasion on his upper lip. He reports he has had nausea vomiting diarrhea for the last couple of weeks. He reports watery diarrhea. He does not remember the syncopal episode he states that he feels sick. He does have some slurred speech. Denies any head neck or back pain. He is complaining of some abdominal pain. However it is soft and nontender with palpation. Does have a large midline healed surgical scar noted to his abdomen and chest which he reports is from a hernia surgery. He is slightly hypotensive upon arrival at 95/68. He does have a history of hypertension and high cholesterol status post CABG and hernia repair from an incarcerated ventral hernia. He does take apixaban and aspirin. Related Data Home Medications ?Medication ?Instructions ?Recorded ?Confirmed aspirin 81 mg chewable tablet 81 mg PO DAILY 07/25/14 10/27/24 (Children's Aspirin) ibuprofen 800 mg tablet 800 mg PO TID PRN 07/25/14 10/27/24 gemfibrozil 600 mg tablet 600 mg PO BID 09/09/15 10/27/24 chlorthalidone 25 mg tablet 25 mg PO DAILY 10/16/15 10/27/24 acetaminophen 325 mg tablet 650 mg (2 x 325 mg) PO Q6H PRN PRN 02/28/18 10/27/24 (Tylenol) #30 tabs allopurinol 100 mg tablet 300 mg PO .qod 04/01/23 10/27/24 hydroxyzine HCl 50 mg tablet 50 mg PO BID PRN 04/01/23 10/27/24 indomethacin 50 mg capsule 50 mg PO BID 04/01/23 10/27/24 magnesium oxide 400 mg PO DAILY 04/01/23 10/27/24 metformin 500 mg tablet 1,000 mg PO BID 04/01/23 10/27/24 omeprazole 20 mg capsule,delayed 20 mg PO DAILY 04/01/23 10/27/24 release lisinopril 10 mg tablet 10 mg PO DAILY 09/08/23 10/27/24 rosuvastatin 40 mg tablet 40 mg PO DAILY 09/08/23 10/27/24 apixaban 5 mg tablet (Eliquis) 5 mg PO BID 10/27/24 10/27/24 metoprolol succinate 100 mg 100 mg PO DAILY 10/27/24 10/27/24 tablet,extended release 24 hr ondansetron 4 mg disintegrating 4 mg PO TID PRN nausea and 10/27/24 tablet vomiting 4 days #7 tabs oseltamivir 75 mg capsule (Tamiflu) 75 mg PO BID 5 days #10 caps 10/27/24 Previous Rx's ?Medication ?Instructions ?Recorded acetaminophen 325 mg tablet 650 mg (2 x 325 mg) PO Q6H PRN PRN 02/28/18 (Tylenol) #30 tabs ondansetron 4 mg disintegrating 4 mg PO TID PRN nausea and 10/27/24 tablet vomiting 4 days #7 tabs oseltamivir 75 mg capsule (Tamiflu) 75 mg PO BID 5 days #10 caps 10/27/24 Allergies Allergy/AdvReac Type Severity Reaction Status Date / Time No Known Allergies Allergy Verified 10/27/24 19:14 General Stated Complaint: [id number] YEHUDA: 3 Review of Systems All systems reviewed & are unremarkable except as noted in HPI and below Exam Narrative Exam Narrative: General: Well Developed, Awake and Alert, conversant. Skin: Warm and Dry HEENT: Head: No palpable deformities, Normocephalic Eyes: Pupils PERRLA, EOM's intact. No periorbital eccymosis or step off Ears: Canal patent. Tympanic membranes are clear . No lozano's sign, no hemptympanum. Nose/Face: Atraumatic. Facial bones nontender to palpation and stable with manipulation. Mouth/Throat: No intraoral trauma. Teeth and mandible are intact. Neck: No midline tenderness, no step off, no deformity to palpation of C-spine. Trachea midline. Chest: No surface trauma. Nontender without crepitus or deformity. Lungs clear to ausculatation bilaterally. Heart: RRR, no rubs, murmurs or gallop. Abdomen: No abrasions, ecchymosis, or surface trauma. Nondistended. Nontender to palpation no guarding, rebound, or rigidity. Pelvis: Nontender to palpation and stable to compression. Femoral pulses strong and equal Extremities: no surface trauma. Sensation intact. Peripheral pulses intact and equal. Neuro: ANO x4, GCS 15, cranial nerves II through XII intact. Motor and sensory exam nonfocal. Reflexes are symmetric. Course Vital Signs Vital signs: Vital Signs Pulse 72 10/27/24 19:06 Respiratory Rate 10 L 10/27/24 19:06 Blood Pressure 95/68 L 10/27/24 19:06 Pulse Oximetry 97 10/27/24 19:06 Pulse 72 10/27/24 19:06 Respiratory Rate 10 L 10/27/24 19:15 Respiratory Effort Non-Labored 10/27/24 19:15 Respiratory Depth Normal 10/27/24 19:15 Respiratory Pattern Normal 10/27/24 19:15 Blood Pressure 95/68 L 10/27/24 19:06 Blood Pressure Position Supine 10/27/24 19:06 Pulse Oximetry 97 10/27/24 19:06 Oxygen Delivery Method Room Air 10/27/24 19:06 Oxygen Flow Rate 0 10/27/24 19:06 Pain Level 0 10/27/24 19:06 Medical Decision Making 64-year-old male presents to the ER via EMS with a chief complaint of syncopal episode. He had a witnessed syncopal episode on the toilet, he has some bruising and a small abrasion on his upper lip. He reports he has had nausea vomiting diarrhea for the last couple of weeks. He reports watery diarrhea. He does not remember the syncopal episode he states that he feels sick. He does have some slurred speech. Denies any head neck or back pain. He is complaining of some abdominal pain. However it is soft and nontender with palpation. Does have a large midline healed surgical scar noted to his abdomen and chest which he reports is from a hernia surgery. He is slightly hypotensive upon arrival at 95/68. He does have a history of hypertension and high cholesterol status post CABG and hernia repair from an incarcerated ventral hernia. He does take apixaban and aspirin. Workup ordered including CBC CMP, PT PTT, serial troponins, lipase. CT head C- spine chest abdomen pelvis. Patient did hit his head no focal neurodeficits noted however he does slur his speech and he is on blood thinners. He has been having nausea vomiting diarrhea for the last 2 weeks. Initial labs show hemoglobin 12.3 hematocrit 36.3, no leukocytosis, INR is 1.5 PT 14.4, sodium 135 potassium 2.9 creatinine 1.6 GFR is 47 glucose 135, calcium 9.0 magnesium 1.1 lipase 48, Fluvid is pending at this time. 2 g of mag IV piggyback ordered, 40 mill equivalents p.o. potassium liquid, 10 mill equivalents of IV potassium. CT head C-spine chest abdomen pelvis shows most likely gastroenteritis, no other abnormality at this time. Repeat BMP shows potassium of 3.8, sodium 133. Repeat magnesium is also improved at 2.0. Patient reevaluation he reports feeling much better he did not get dizzy with orthostatic vital signs I will send him with outpatient stool collection studies. Also send him with some Zofran. I did discuss diet with him and increasing oral electrolytes while having the diarrhea. I also discussed tricked return instructions with him and his family. Patient was discharged in the care of his . This text was generated using [employer] system, please disregard any oddities of phrase or misspellings. Medical Records Medical records reviewed: Yes I reviewed the patient's medical records. Lab Data Lab results reviewed: Yes I reviewed the patient's lab results. Labs: Laboratory Tests Range/Units 10/27/24 10/27/24 10/27/24 19:19 20:29 21:56 WBC (4.4-10.8) 10^3/uL 4.59 RBC (4.36-5.78) 10^6/uL 3.76 L Hgb (13.5-17.5) g/dL 12.3 L Hct (40.0-50.0) % 36.3 L MCV (80-95) fL 97 H MCH (27.0-33.0) pg 32.7 MCHC (32.0-36.0) % 33.9 RDW (11.8-14.1) % 13.3 Plt Count (130-400) 10^3/uL 136 MPV (8.0-11.0) fL 10.5 Immature Gran % % 0.4 Neutrophils % % 71.8 Lymphocytes % % 11.5 Monocytes % % 14.4 Eosinophils % % 1.7 Basophils % % 0.2 Nucleated RBC % (0.0-0.3) % 0.0 Absolute Neutrophils (1.2-6.7) 10^3/uL 3.29 Absolute Lymphocytes (1.2-3.4) 10^3/uL 0.53 L Absolute Monocytes (0.1-0.8) 10^3/uL 0.66 Absolute Eosinophils (0.0-0.7) 10^3/uL 0.08 Absolute Basophils (0.0-0.2) 10^3/uL 0.01 PT (9.1-11.1) sec 14.4 H INR (0.9-1.1) 1.5 H APTT (20.6-30.2) sec 35.9 H Sodium (136-145) mmol/L 135 L 133 L Potassium (3.5-5.1) mmol/L 2.9 L* 3.8 Chloride (98-107) mmol/L 99 97 L Carbon Dioxide (21.0-32.0) mmol/L 23.8 26.3 Anion Gap (3-11) mmol/L 12.2 H 9.7 BUN (7-18) mg/dL 18 18 Creatinine (0.70-1.30) mg/dL 1.6 H 1.6 H Est GFR (CKD-EPI 2020) (mL/min/1.73m2) 47.52 47.52 Glucose (74-106) mg/dL 135 H 134 H Calcium (8.5-10.1) mg/dL 8.0 L 8.4 L Magnesium (1.8-2.4) mg/dL 1.1 L 2.0 Total Bilirubin (0.2-1.0) mg/dL 0.89 AST (15-37) U/L 40 H ALT (16-63) U/L 44 Alkaline Phosphatase (46-116) U/L 37 L Troponin I (<or=76) ng/L 6 5 Total Protein (6.4-8.2) g/dL 6.0 L Albumin (3.4-5.0) g/dL 3.3 L Lipase (<78) U/L 48 COVID-19 Source NASOPHARYNX SARS-CoV-2 (PCR) (Negative) Negative Influenza Type A (PCR) (Negative) Positive A Influenza Type B (PCR) (Negative) Negative RSV (PCR) (Negative) Negative Range/Units 10/27/24 22:18 WBC (4.4-10.8) 10^3/uL RBC (4.36-5.78) 10^6/uL Hgb (13.5-17.5) g/dL Hct (40.0-50.0) % MCV (80-95) fL MCH (27.0-33.0) pg MCHC (32.0-36.0) % RDW (11.8-14.1) % Plt Count (130-400) 10^3/uL MPV (8.0-11.0) fL Immature Gran % % Neutrophils % % Lymphocytes % % Monocytes % % Eosinophils % % Basophils % % Nucleated RBC % (0.0-0.3) % Absolute Neutrophils (1.2-6.7) 10^3/uL Absolute Lymphocytes (1.2-3.4) 10^3/uL Absolute Monocytes (0.1-0.8) 10^3/uL Absolute Eosinophils (0.0-0.7) 10^3/uL Absolute Basophils (0.0-0.2) 10^3/uL PT (9.1-11.1) sec INR (0.9-1.1) APTT (20.6-30.2) sec Sodium (136-145) mmol/L Potassium (3.5-5.1) mmol/L Chloride (98-107) mmol/L Carbon Dioxide (21.0-32.0) mmol/L Anion Gap (3-11) mmol/L BUN (7-18) mg/dL Creatinine (0.70-1.30) mg/dL Est GFR (CKD-EPI 2020) (mL/min/1.73m2) Glucose (74-106) mg/dL Calcium (8.5-10.1) mg/dL Magnesium (1.8-2.4) mg/dL Total Bilirubin (0.2-1.0) mg/dL AST (15-37) U/L ALT (16-63) U/L Alkaline Phosphatase (46-116) U/L Troponin I (<or=76) ng/L Cancelled Total Protein (6.4-8.2) g/dL Albumin (3.4-5.0) g/dL Lipase (<78) U/L COVID-19 Source SARS-CoV-2 (PCR) (Negative) Influenza Type A (PCR) (Negative) Influenza Type B (PCR) (Negative) RSV (PCR) (Negative) Quality:SDOH Health Related Social Needs: No Data to Display PFSH All Active Problems (Updated 10/27/24 @ 22:22 by Tanisha Baumann NP) Influenza A (Acute) Gastroenteritis (Acute) Syncope (Chronic) Acute hypokalemia (Acute) Near syncope (Acute) Dehydration (Acute) Alcohol abuse (Chronic) Obesity (Chronic) Left arm weakness (Acute) Abdominal pain (Acute) Enteritis (Acute) Incarcerated ventral hernia (Acute) Postop check (Acute) Fever (Acute) Hypokalemia (Acute) Medical History Diabetes HTN (hypertension) Hypercholesterolemia CAD (coronary artery disease) Gout Surgical History Fx tibia/fibula shaft-op S/P CABG (coronary artery bypass graft) S/P hernia repair incarcerated ventral hernia with small bowel resection (02/21/18) Family History Other Breast cancer Social History Smoking/Tobacco Use Status: Never Smoking risk assessment performed?: Yes Alcohol Intake: current Alcohol Intake frequency: a few times a week Alcohol type: beer Drug use: Never Substance use type: does not use Housing: house Do you feel safe at home: No Do you feel safe in your relationship?: No
[2024-10-27 19:29] LABS: Abs Immature Grans 0.02 10^3/uL (0.0-0.06); Absolute Basophil Count 0.01 10^3/uL (0.0-0.2); Absolute Eosinophil Count 0.08 10^3/uL (0.0-0.7); Absolute Lymphocyte Count 0.53 10^3/uL (1.2-3.4); Absolute Monocyte Count 0.66 10^3/uL (0.1-0.8); Absolute Neutrophil Count 3.29 10^3/uL (1.2-6.7); Basophils % 0.2 %; Eosinophils % 1.7 %; HCT 36.3 % (40.0-50.0); HGB 12.3 g/dL (13.5-17.5); Immature Grans % 0.4 %; Lymphocytes % 11.5 %; MCH 32.7 pg (27.0-33.0); MCHC 33.9 % (32.0-36.0); MCV 97 fL (80-95); MPV 10.5 fL (8.0-11.0); Monocytes % 14.4 %; Neutrophils % 71.8 %; Platelet Count 136 10^3/uL (130-400); RBC 3.76 10^6/uL (4.36-5.78); RDW 13.3 % (11.8-14.1); RDW-SD 47.7 fL; WBC 4.59 10^3/uL (4.4-10.8)
[2024-10-27 19:42] LABS: ALT 44 U/L (16-63); AST 40 U/L (15-37); Albumin 3.3 g/dL (3.4-5.0); Alkaline Phosphatase 37 U/L (46-116); Anion Gap 12.2 mmol/L (3-11); BUN 18 mg/dL (7-18); Bilirubin, Total 0.89 mg/dL (0.2-1.0); CO2 23.8 mmol/L (21.0-32.0); CREATININE 1.6 mg/dL (0.70-1.30); Chloride 99 mmol/L (98-107); Estimated GFR 47.52 (mL/min/1.73m2); Glucose 135 mg/dL (74-106); Lipase 48 U/L (<78); Magnesium 1.1 mg/dL (1.8-2.4); Sodium 135 mmol/L (136-145); Troponin I 6 ng/L (<or=76)
[2024-10-27 19:45] LABS: INR 1.5 (0.9-1.1); PTT Activated 35.9 sec (20.6-30.2); Potassium 2.9 mmol/L (3.5-5.1); Prothrombin Time 14.4 sec (9.1-11.1)
[2024-10-27 20:03] LABS: COVID-19 PCR Negative (Negative); Influenza A PCR Positive (Negative); Influenza B PCR Negative (Negative); RSV PCR Negative (Negative)
[2024-10-27 20:06] LABS: Source NASOPHARYNX
[2024-10-27] MEDS: Normal Saline - Diluent 50 ML VIAL IJ (20:16)
[2024-10-27] MEDS: Omnipaque 350 MG/ML 100 ML BTL IJ (20:20)
[2024-10-27] MEDS: Potassium Chloride Liquid 20 MEQ PKT 40 MEQ PO (20:22)
--- NOTE | 2024-10-27 20:22 | DI.CT_ITS ---
Exam(s) CT HEAD CERVICAL SPINE WO EXAM: CT HEAD CERVICAL SPINE WO CLINICAL HISTORY: Fall, Syncope, head injury. TECHNIQUE: Imaging Protocol: Axial computed tomography images with coronal and sagittal reformatted images were created and reviewed COMPARISON: CT CT HEAD WO from 03/20/2023 FINDINGS: CT Head: Ventricles and Extra axial spaces: Normal in size and morphology for the patient's age. Hemorrhage: None. Cerebral parenchyma: No acute territorial infarct or mass effect. Midline shift: None. Brainstem/Cerebellum: Normal. Calvarium: Normal. Visualized Paranasal sinuses/Mastoids: There is mucosal thickening in the visualized paranasal sinuse s. The mastoid air cells are clear. Soft Tissues: Unremarkable. CT Cervical Spine: Bones: No acute fracture or subluxation. Age-appropriate degenerative changes are present throughout the cervical spine. There is reversal of the normal cervical lordosis. This may be due to muscle sp asm or patient positioning. Soft Tissues: Unremarkable. Lung Apices: Clear. IMPRESSION: 1. No acute intracranial process. 2. No acute fracture or subluxation in the cervical spine. RADIATION DOSE DELIVERED: 1,244.51mGy.cm Total DLP DATA REPOSITORY: All CT scans at this facility are submitted to the National Radiology Data Registry (NRDR) Dose Index Registry (DIR) with the [employer] (ACR). RADIATION OPTIMIZATION: All CT scans at this facility use at least one of these dose optimization te chniques: automated exposure control; mA and/or kV adjustment per patient size (includes targeted exa ms where dose is matched to clinical indication); or iterative reconstruction.
--- NOTE | 2024-10-27 20:22 | DI.CT_ITS ---
Exam(s) CT CHEST/ABD/PEL W EXAM: CT CHEST/ABD/PEL W CLINICAL HISTORY: Fall, N/V, Syncope TECHNIQUE: Imaging Protocol: Axial computed tomography images with coronal and sagittal reformatted images were created and reviewed. Lung Computer Aided Detection (CAD) was utilized. CONTRAST MATERIAL: Intravenous: Omnipaque 350 contrast volume:100 mL Oral: No COMPARISON: CT CHEST ABD PELVIS WO CONTRAST from 02/21/2018 CT ABD PELVIS WITH CONTRAST from 02/25/[address] ABDOMEN PELVIS WO from 12/02/[address] RENAL COLIC WO from 03/20/[address] ABDOMEN PELVIS WO from 09/08/2023 FINDINGS: CHEST: Tracheobronchial tree: Patent where visualized. No evidence of bronchiectasis. Pulmonary parenchyma: No consolidation or dominant measurable mass. No architectural distortion. Visualized thyroid gland: There is a 1.4 cm heterogeneous nodule in the inferior pole of the left lob e of the thyroid gland. Nonemergent thyroid ultrasound is recommended for further evaluation. Mediastinum and Isabela: No dominant adenopathy or fluid collection. The esophagus is unremarkable. The re is a small hiatal hernia present. Pleura: No effusion or pneumothorax. Heart: The heart is not dilated. Mild coronary artery calcification is present. No pericardial effus ion. Pulmonary arteries: Due to the timing of the bolus, peripheral pulmonary artery opacification is subo ptimal. No large central pulmonary embolism is seen. Aorta: Thoracic aorta non-dilated. No evidence of dissection. Atherosclerotic calcification is prese nt. Lymph nodes: Within normal limits. Soft tissues: Unremarkable. Bones:Within normal limits for the patient's age. Sternal wires are in place. ABDOMEN: Liver: Normal density. No measurable mass. The liver is enlarged measuring 20 cm in length. Portal, Superior Mesenteric, and Splenic Veins: Unremarkable. Gallbladder and Biliary Tract: No radiodense calculus or dilation. Pancreas: Normal density, no abnormal calcifications or inflammatory process. Spleen: The spleen is enlarged measuring 16 cm. Adrenals: No masses seen. Kidneys: Normal size, contour and axis. There is again seen a left pelvic kidney. No radiodense sto stewart or obstructive uropathy. There are few tiny hypodensities in the kidneys. They are too small for further characterization but likely reflect small cysts. No follow-up is recommended. Abdominal Aorta: Abdominal portion non-dilated. Atherosclerotic calcification is present. Bowel: No obstruction or bowel wall thickening. There is an anastomosis in the mid small bowel anteri ciaran. No evidence of appendicitis. There are fluid-filled loops of small bowel in the left abdomen which can be seen with a diarrheal illness. Peritoneal Cavity: No ascites, collection or mesenteric inflammatory response. No free air. Lymph Nodes: Within normal limits. Bones: Within normal limits for the patient's age. Soft Tissues: There are postsurgical changes in the anterior abdominal wall consistent with anterior abdominal hernia repair. No evidence of a recurrent anterior abdominal wall hernia. PELVIS: Bladder: Symmetric distention, no gross wall thickening. Reproductive Organs: Prostate gland is enlarged. Lymph Nodes: Within normal limits. Bones: Within normal limits. IMPRESSION: 1. No acute pulmonary process. 2. 1.4 cm left thyroid nodule. Nonemergent thyroid ultrasound is recommended for further evaluation. 3. Status post anterior abdominal wall hernia repair. No evidence of a in recurrent anterior abdomin al wall defect. 4. No evidence of bowel obstruction or bowel wall thickening. 5. There is fluid seen in the colon, particularly the left colon, which can be seen with a diarrheal illness. RADIATION DOSE DELIVERED: 1,333.92mGy.cm Total DLP DATA REPOSITORY: All CT scans at this facility are submitted to the National Radiology Data Registry (NRDR) Dose Index Registry (DIR) with the [employer] (ACR). RADIATION OPTIMIZATION: All CT scans at this facility use at least one of these dose optimization te chniques: automated exposure control; mA and/or kV adjustment per patient size (includes targeted exa ms where dose is matched to clinical indication); or iterative reconstruction.
[2024-10-27] MEDS: MAGNESIUM SULFATE 2 GM/50 ML BAG IV_INF (20:23)
[2024-10-27] MEDS: POTASSIUM CHLORIDE 10 MEQ/100 ML BAG 100 MEQ IV_INF (20:24)
[2024-10-27] MEDS: Normal Saline 500 ML 125 ML IV (20:51)
[2024-10-27 20:53] LABS: Troponin I 5 ng/L (<or=76)
[2024-10-27] MEDS: Oseltamivir 75 MG CAP PO (21:17)
[2024-10-27] MEDS: Normal Saline Flush 10 ML SYR IVP (21:29)
--- NOTE | 2024-10-27 21:42 | DI.VRAD_ITS ---
PROCEDURE INFORMATION: Exam: CT Head Without Contrast Exam date and time: 10/27/2024 8:01 PM Age: 64 years old Clinical indication: Other: Fall, syncope, head injury TECHNIQUE: Imaging protocol: Computed tomography of the head without contrast. COMPARISON: MR BRAIN WO 03/22/2023 11:54 AM FINDINGS: Brain: Normal. No hemorrhage. Unremarkable white matter. No mass effect. Cerebral ventricles: No ventriculomegaly. Paranasal sinuses: Mild diffuse mucosal thickening throughout the paranasal sinuses. No fluid levels. Mastoid air cells: Visualized mastoid air cells are well aerated. Bones: Unremarkable. No acute fracture. Soft tissues: Unremarkable. IMPRESSION: No acute intracranial abnormality. Moderate findings of chronic paranasal sinusitis PROCEDURE INFORMATION: Exam: CT Cervical Spine Without Contrast Exam date and time: 10/27/2024 8:01 PM Age: 64 years old Clinical indication: Other: Fall, syncope, head injury TECHNIQUE: Imaging protocol: Computed tomography of the cervical spine without contrast. COMPARISON: CT CERVICAL SPINE WO 04/13/2023 10:08 AM FINDINGS: Bones: Mild cervical kyphosis. Multilevel disc bulge and uncovertebral spurring produces multilevel uhal-sd-jcacxczx central canal stenosis. There is severe narrowing of the bilateral C3, C4, C5 and C6 neural foramina. Significant multilevel facet arthropathy with grade 1 anterolisthesis of C4 and C7. Lxmp-fr-yjselpob multilevel anterior osteophyte formation. Moderate degenerative changes of the atlantodental joint. No acute fracture. Lungs: Lung apices are normal. Soft tissues: Unremarkable. IMPRESSION: No acute fracture. Severe multilevel degenerative changes of the cervical spine as described. Dictated and Authenticated by: Ezekiel Salazar MD. Orderin Pastor Garay MD
--- NOTE | 2024-10-27 21:44 | DI.VRAD_ITS ---
PROCEDURE INFORMATION: Exam: CT Chest With Contrast; Diagnostic Exam date and time: 10/27/2024 8:10 PM Age: 64 years old Clinical indication: Other: Fall, n/v, syncope; Prior surgery; Surgery date: 1-6 months; Surgery type: Hernia repair 3-4 months ago. TECHNIQUE: Imaging protocol: Diagnostic computed tomography of the chest with contrast. Contrast material: OMNIPAQUE 350; Contrast volume: 100 ml; Contrast route: INTRAVENOUS (IV); COMPARISON: CR XR CHEST 2V PA LATERAL 03/20/2023 6:36 PM FINDINGS: Lungs: Normal. Pleural spaces: Unremarkable. No pneumothorax. No pleural effusion. Heart: Normal. Lymph nodes: Few small lymph nodes within the mediastinum, likely reactive. Vasculature: Unremarkable. No aortic aneurysm. Diaphragm: Small-sized hiatal hernia. Bones/joints: Changes of prior sternotomy and CABG. Mild multilevel thoracic spine degenerative disc disease. Soft tissues: Normal. IMPRESSION: No acute thoracic abnormality. PROCEDURE INFORMATION: Exam: CT Abdomen And Pelvis With Contrast Exam date and time: 10/27/2024 8:10 PM Age: 64 years old Clinical indication: Other: Fall, n/v, syncope; Prior surgery; Surgery date: 1-6 months; Surgery type: Hernia repair 3-4 months ago. TECHNIQUE: Imaging protocol: Computed tomography of the abdomen and pelvis with contrast. Contrast material: OMNIPAQUE 350; Contrast volume: 100 ml; Contrast route: INTRAVENOUS (IV); COMPARISON: CT ABDOMEN PELVIS WO 09/08/2023 1:09 PM FINDINGS: Liver: Normal. Gallbladder and biliary ducts: Normal. Pancreas: Normal. Spleen: Mild splenomegaly. Adrenal glands: Normal. No mass. Kidneys and ureters: Left kidney slightly ectopically located within the inferior left retroperitoneal. No hydronephrosis. No nephrolithiasis Stomach and bowel: Nondilated, gas and fluid-filled distal small bowel and colon, possibly enteritis/diarrhea. Appendix: No evidence of appendicitis. Intraperitoneal space: Unremarkable. No free air. No significant fluid collection. Vasculature: Atherosclerotic disease of the abdominal aorta and iliac arteries. Atherosclerotic disease of the abdominal aorta and iliac arteries. Lymph nodes: Unremarkable. No enlarged lymph nodes. Urinary bladder: Unremarkable as visualized. Reproductive: Unremarkable as visualized. Bones/joints: Degenerative changes of the hips and sacroiliac joints. Multilevel lumbar spine degenerative disc space narrowing and osteophyte formation Soft tissues: Normal. IMPRESSION: Nondilated, gas and fluid-filled distal small bowel and colon, possibly enteritis/diarrhea. Dictated and Authenticated by: Domingo Campos MD. Orderin Pastor Garay MD
[2024-10-27 22:12] LABS: Anion Gap 9.7 mmol/L (3-11); BUN 18 mg/dL (7-18); CO2 26.3 mmol/L (21.0-32.0); CREATININE 1.6 mg/dL (0.70-1.30); Calcium 8.4 mg/dL (8.5-10.1); Chloride 97 mmol/L (98-107); Estimated GFR 47.52 (mL/min/1.73m2); Glucose 134 mg/dL (74-106); Potassium 3.8 mmol/L (3.5-5.1); Sodium 133 mmol/L (136-145)
[2024-10-27] MEDS: Ondansetron O.D.T. 4 MG TABEF, 3 TABS/BTL PO (22:31)
--- NOTE | 2024-10-28 12:00 | NUR.NOTE ---
Patient's called asking about the prescritpion for Tamiflu. She stated it was not at the pharmacy. Accessed chart and told her that it was at [facility] in [place]. 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 Nursing Note:
== END 2024-10-27 22:34 | disposition home or self-care (01) ==
LOC: ER 22:42
PROVIDERS: Emergency Provider Registered Nurse Emergency; PCP Nurse Practitioner Family
DX: R55 Syncope and collapse; K52.9 Noninfective gastroenteritis and colitis, unspecified; E87.6 Hypokalemia; R11.2 Nausea with vomiting, unspecified; Z79.01 Long term (current) use of anticoagulants; R47.81 Slurred speech; J10.1 Influenza due to other identified influenza virus with other respiratory manifestations
CPT/HCPCS: 74177; 80048; 80053; 83690; 87637; 93005; 96365; 96375; 99285; 70450; 71260; 72125; 83735; 84484; 85025; 85610; 85730; 93010; 99284; J2405; J3475; J3480; J3490

== ENCOUNTER 2024-12-25 12:49 | Outpatient (REF) | payer MEDICARE, SELFPAY ==
[2024-12-25 16:34] LABS: Anion Gap 13.7 mmol/L (3-11); BUN 17 mg/dL (7-18); CO2 24.3 mmol/L (21.0-32.0); CREATININE 1.4 mg/dL (0.70-1.30); Calcium 9.9 mg/dL (8.5-10.1); Chloride 107 mmol/L (98-107); Estimated GFR 55.78 (mL/min/1.73m2); Glucose 114 mg/dL (74-106); Potassium 4.6 mmol/L (3.5-5.1); Sodium 145 mmol/L (136-145); TSH 1.01 uIU/mL (0.36-3.74)
== END 2024-12-25 12:50 | disposition home or self-care (01) ==
LOC: NCHCN 12:49
PROVIDERS: PCP Nurse Practitioner Family; Visit Provider Nurse Practitioner Family
DX: R19.7 Diarrhea, unspecified (principal)
CPT/HCPCS: 80048; 84439; 84443

== ENCOUNTER 2024-12-26 13:47 | Outpatient (REF) | payer MEDICARE, SELFPAY ==
[2024-12-26 19:54] LABS: C Diff PCR Negative (Negative); EPI 027-NAP1-B1 PRESUMPTIVE NEGATIVE
[2024-12-27 23:35] LABS: Campylobacter PCR Negative (Negative); Salmonella PCR Negative (Negative); Shiga Toxin PCR Negative (Negative); Shigella/Enteroinvasive Ecoli Negative (Negative)
[2024-12-29 13:51] LABS: Cryptosporidium, F Negative (Negative); Giardia Ag, F Negative (Negative)
== END 2024-12-26 13:48 | disposition home or self-care (01) ==
LOC: NCHCN 13:47
PROVIDERS: PCP Nurse Practitioner Family; Visit Provider Nurse Practitioner Family
DX: R19.7 Diarrhea, unspecified (principal)
CPT/HCPCS: 87328; 87329; 87505

== ENCOUNTER 2025-01-11 00:36 | Outpatient (CLI) | payer MEDICARE, SELFPAY ==
--- NOTE | 2025-01-11 | DI.US_ITS ---
Exam(s) US THYROID EXAM: US THYROID CLINICAL HISTORY: Nontoxic single thyroid nodule, E04.1. TECHNIQUE: Ultrasound thyroid performed using standard protocol. COMPARISON: US US ABDOMEN from 11/27/[address] CHEST/ABD/PEL W from 10/27/2024 FINDINGS: Thyroid gland exhibits normal size. There is a solitary nodule which is in the left lobe and corresponds to finding incidentally noted on recent CT scan. LEFT THYROID LOBE: Measures 1.7 cm AP x 1.7 cm wide x 4.6 cm craniocaudal With respect to the nodule in the left thyroid lobe, specifics are as follows; Size: Measures 1.1 x 1.3 x 0.8 cm Composition: Solid-2 points Echogenicity: Isoechoic-1 point Shape: Taller than wider in the transverse plane-3 points Margin: Smooth- 0 points Echogenic Foci: Contains multiple punctate echogenic foci-3 points Total Points for this nodule: 9 ACR Ti-Rads Category: TR5 This suspicious TR 5 level nodule requires ultrasound-guided FNA as it measures greater than 1 cm. ISTHMUS: Normal thickness. There are no nodules in the isthmus. RIGHT THYROID LOBE: Measures 1.6 cm AP x 1.9 wide x 4 cm craniocaudal There are no nodules in the right lobe LYMPH NODES: There are few small benign-appearing lymph nodes bilaterally. No gross lymphadenopathy evident.. IMPRESSION: 1. There is a single nodule in the thyroid which is in the left lobe and this is a solid nodule which corresponds to the incidental finding on recent CT scan and which by ultrasound criteria classifies as a suspicious TR 5 level nodule which requires biopsy as it measures greater than 1 cm. 2. No significant lymphadenopathy. DATA REPOSITORY:
== END 2025-01-11 00:56 ==
LOC: DI 00:36
PROVIDERS: PCP Nurse Practitioner Family; Visit Provider Nurse Practitioner Family
DX: E04.1 Nontoxic single thyroid nodule (principal)
CPT/HCPCS: 76536

== ENCOUNTER 2025-03-20 02:14 | Outpatient (CLI) | payer MEDICARE, SELFPAY ==
--- NOTE | 2025-03-20 07:30 | DI.US_ITS ---
Exam(s) US NEEDLE LOCAL OTHER WO RAD EXAM: US NEEDLE LOCAL OTHER WO RAD CLINICAL HISTORY: Left thyroid nodule,US GUIDED BX,E04.1. COMPARISON: No exams were available for comparison TECHNIQUE: Ultrasound was provided for Dr. Marquez for guidance with performing thyroid nodule FNA. FINDINGS: Please see procedure note for details. DATA REPOSITORY:
--- NOTE | 2025-03-20 12:15 | PAPNONF_PTH ---
PATIENT: Jas Alex LOC: [facility] U#:[id number] AGE/SX: 65/M ROOM: RE03/20/[address]: Casey Marquez MD : 1960 BED: DIS: 03/20/2025 SPEC #: [id number] RECD: 03/20/25 13:13 STATUS: RENEE REQ #: [id number] WILLIAM: 03/20/25 12:[address]: Casey Marquez DEPT: [facility] Cytology RECD BY: Ewa Esquivel ENTERED: 03/20/25 13:14 SP TYPE: MURRAY ALCAZAR DR: Kerry Estrada Tissues: 1 - BODY FLUID CYTO-FINE NEEDLE ASPIRATE-[facility] Procedures: BODY FLUID CYTO-FINE NEEDLE ASPIRATE-[facility] Comments: [id number] (PATH FNA CONSULT) (REFRIGERATED)
--- NOTE | 2025-03-20 13:09 | W.PROCNOTE ---
Date of service: 03/20/25 Time of Service: 13:09 Procedure Note Date of procedure: 03/20/25 Procedure: Ultrasound-guided FNA, left thyroid nodule, pathology present Surgeon/Proceduralist/Physician: Casey Marquez Procedure Diagnosis: TR 5 left thyroid nodule Procedure Indications: The patient has a left sided thyroid nodule that previously was measured at 1.1 x 1.3 x 0.8 cm and judged to be a TR 5 lesion. Options were explained to the patient regarding further management. He elected to undergo the above procedure. Consent was filled out and signed. The below was then performed. He noted no new medications and noted no new issues. All questions were answered prior to the procedure. Procedure Description: The patient was positioned in supine position with his neck slightly extended. He was prepped and draped in appropriate fashion. Ultrasound was used to localize the thyroid nodule on the left which now measured 0.9 cm at its maximal dimension. After discussion with the patient, decision was made to proceed with biopsy given that this was previously measured larger and felt to be a TR 5 lesion. As such, 1% lidocaine with 1/100,000 epinephrine was injected in the skin and subcutaneous tissues overlying the nodule. A 25-gauge needle was then passed into the thyroid nodule, passed to pathology who noted inadequate cellular numbers. The 2nd and 3rd biopsies also did not reveal any further thyroid tissue. Of note, the nodule was found to be very firm, and tended to deflect off of the needle, it was mobile. With 3 unsuccessful passes, after discussion with the patient, the decision was made to stop there, with the plan that there may be adequate cellular representation in the CytoLyt or there may not be if there is not, given that this is now 0.9 cm in size, our plan would be to follow this with ultrasound in 6 months time. He is comfortable with this. A sterile dressing was applied. The patient was then allowed to sit, stand, and ambulate. His vital signs remained stable. There was no significant bleeding. He will remove the bandage in a couple of hours and not replace it. He will call with any signs of infection or should he have any other issues. He will avoid any heavy lifting today. He may use ibuprofen or Tylenol for any discomfort. He will call if he does not hear from me with regard to the ultrasound biopsy results within 1 week. He had no further questions. He is comfortable with this plan.
== END 2025-03-20 02:34 ==
LOC: DI 02:14
PROVIDERS: PCP Nurse Practitioner Family; Visit Provider Otolaryngology
DX: E04.1 Nontoxic single thyroid nodule (principal)
CPT/HCPCS: 10005; 76942; 88104

== ENCOUNTER 2025-04-05 16:29 | Outpatient (REF) | payer MEDICARE, SELFPAY ==
[2025-04-05 19:13] LABS: Uric Acid 6.0 mg/dL (3.5-7.2)
== END 2025-04-05 16:30 | disposition home or self-care (01) ==
LOC: NCHCN 16:29
PROVIDERS: PCP Nurse Practitioner Family; Visit Provider Nurse Practitioner Family
DX: E11.9 Type 2 diabetes mellitus without complications (principal)
CPT/HCPCS: 84550

== ENCOUNTER → 2025-05-14 09:54 | Outpatient (BNVA) | payer MEDICARE, SELFPAY | PROVIDERS: PCP Nurse Practitioner Family; Referring Provider Nurse Practitioner Family; Visit Provider Student in an Organized Health Care Education/Training Program | DX: R19.7 Diarrhea, unspecified (principal) | CPT/HCPCS: 99214; 99203 ==

== ENCOUNTER 2025-06-18 09:41 | Day surgery (SDC) | payer MEDICARE, SELFPAY ==
[2025-06-18 09:47] VITALS: BP 139/93; PULSE 124; RESP 22; TEMP 36.5; O2SAT 98
[2025-06-18] MEDS: Lactated Ringers 1,000 ML 80 ML IV (10:18)
--- NOTE | 2025-06-18 10:44 | SCONE_ITS ---
Date of service: 06/18/25 Time of Service: 10:51 Assessment and Plan Assessment and plan (1) Chronic diarrhea: Status: Acute Assessment and plan: 65-year-old man with chronic diarrhea. Ready for upper and lower endoscopy Plan: EGD and colonoscopy with biopsies History of Present Illness Narrative: Amor is a 65-year-old male with chronic diarrhea. No changes in symptoms. He is here for colonoscopy and endoscopy to take small bowel and colon biopsies. [facility] All Active Problems (Updated 06/18/25 @ 10:52 by Domingo Silva MD) Chronic diarrhea (Acute) Thyroid nodule (Acute) Near syncope (Acute) Dehydration (Acute) Alcohol abuse (Chronic) Obesity (Chronic) Left arm weakness (Acute) Abdominal pain (Acute) Enteritis (Acute) Incarcerated ventral hernia (Acute) Postop check (Acute) Fever (Acute) Hypokalemia (Acute) Medical History (Updated 06/18/25 @ 10:52 by Domingo Silva MD) Allergic rhinitis Essential hypertension Arteriosclerosis of arterial coronary artery bypass graft Anorectal disorder Hernia of anterior abdominal wall Type 2 diabetes mellitus Incoordination Cervical spondylosis without myelopathy Mixed hyperlipidemia Retention of urine Chondrocalcinosis Anxiety disorder Steatosis of liver Cataract Hypomagnesemia Chronic kidney disease, stage 3b Atrial fibrillation Coronary atherosclerosis High serum ferritin On anticoagulant therapy Acute low back pain Diabetes HTN (hypertension) Hypercholesterolemia CAD (coronary artery disease) Gout Surgical History Fx tibia/fibula shaft-op S/P CABG (coronary artery bypass graft) (~2004) S/P hernia repair incarcerated ventral hernia with small bowel resection (02/21/18) Family History Father , age 74 Heart disease Myocardial infarction Mother , Age 75 Cancer Sister , age 59 Breast cancer Daughter CAD (coronary artery disease) stents placed age 26 Social History Smoking/Tobacco Use Status: Never Smoking risk assessment performed?: Yes Alcohol Intake: current Alcohol Intake frequency: a few times a week Alcohol type: beer Drug use: Never Substance use type: does not use Housing: house Do you feel safe at home: No Do you feel safe in your relationship?: No Exam Narrative Exam Narrative: Gen: Non-toxic, comfortable and interactive Neuro: Alert and oriented x3 Psych: Good mood and affect. Good insight and understanding into condition. Chest: Non-labored breathing, no wheezing, no visible shortness of breath. Heart: Regular Results Last Vital Signs Temp 97.7 F 06/18/25 09:47 Pulse 124 H 06/18/25 09:47 Resp 22 06/18/25 09:47 BP 139/93 H 06/18/25 09:47 Pulse Ox 98 06/18/25 09:47
--- NOTE | 2025-06-18 10:46 | W.ANESPRE ---
General Info Date of Service Date Performed: 06/18/25 Height: 5 ft 8 in Weight: 88.1 kg Body Mass Index (BMI): 29.5 Surgical Procedure: Operation Date: 06/18/25 11:20 Proposed Procedure Side Surgeon p Colonoscopy/Gastroscopy Domingo Silva MD Meds Allergies and Home Medications Allergies Allergy/AdvReac Type Severity Reaction Status Date / Time atorvastatin Allergy Unknown elevated Verified 06/18/25 10:05 LFTs Home Medication ?Medication ?Instructions ?Recorded gemfibrozil 600 mg tablet 600 mg PO BID 09/09/15 chlorthalidone 25 mg tablet 25 mg PO DAILY 10/16/15 omeprazole 20 mg capsule,delayed 20 mg PO DAILY 04/01/23 release lisinopril 10 mg tablet 10 mg PO DAILY 09/08/23 rosuvastatin 40 mg tablet 40 mg PO DAILY 09/08/23 apixaban 5 mg tablet (Eliquis) 5 mg PO BID 10/27/24 metoprolol succinate 100 mg 100 mg PO DAILY 10/27/24 tablet,extended release 24 hr albuterol sulfate 2.5 mg/3 mL 2.5 mg inhalation Q6H PRN 01/15/25 (0.083 %) solution for nebulization allopurinol 100 mg tablet 300 mg PO DAILY 01/15/25 baclofen 5 mg tablet 5 mg PO TID PRN 01/15/25 fenofibrate nanocrystallized 48 mg 48 mg PO DAILY 01/15/25 tablet ibuprofen 800 mg tablet 800 mg PO BID PRN 01/15/25 indomethacin 50 mg capsule 50 mg PO BID PRN 01/15/25 ondansetron 4 mg disintegrating 4 mg PO Q8H PRN 01/15/25 tablet semaglutide 0.25 mg or 0.5 mg (2 0.25 mg subcut QWEEK 05/01/25 mg/3 mL) subcutaneous pen injector (Ozempic) bisacodyl 5 mg tablet,delayed 5 mg PO ONCE colonscopy bowel prep 05/14/25 release (Dulcolax (bisacodyl)) #4 tabs polyethylene glycol 3350 17 238 g PO ONCE colonoscopy prep 05/14/25 gram/dose oral powder #238 grams Current Visit Medications: Current Medications Generic Name Dose Route Start Last Admin Trade Name Freq PRN Reason Stop Dose Admin Ringer's Solution 1,000 mls @ 80 mls/hr 06/18/25 06:00 06/18/25 10:18 IV 06/18/25 23:59 80 mls/hr INFUSION ALENA Administration IV Miscellaneous Supplies 1 each 06/18/25 06:00 Iv Access IV 06/18/25 23:59 DIRECTED ALENA Sodium Chloride 0 ml 06/18/25 06:00 Normal Saline Flush 10 Ml Syr IV 06/18/25 23:59 PRN PRN Sodium Chloride 0 ml 06/18/25 06:00 Normal Saline 10 Ml Vial IJ 06/18/25 23:59 DIRECTED PRN Sterile Water 0 ml 06/18/25 06:00 Water,Injection,Sterile 10 Ml Vial IJ 06/18/25 23:59 DIRECTED PRN PFSH Active Problems Active Problems: Problem Status Onset Code Thyroid nodule Acute E04.1 Near syncope Acute R55 Dehydration Acute E86.0 Alcohol abuse Chronic F10.10 Obesity Chronic E66.9 Left arm weakness Acute R29.898 Abdominal pain Acute R10.9 Enteritis Acute K52.9 Incarcerated ventral hernia Acute K46.0 Postop check Acute Z09 Fever Acute R50.9 Hypokalemia Acute E87.6 Medical History Medical History Allergic rhinitis Essential hypertension Arteriosclerosis of arterial coronary artery bypass graft Anorectal disorder Hernia of anterior abdominal wall Type 2 diabetes mellitus Incoordination Cervical spondylosis without myelopathy Mixed hyperlipidemia Retention of urine Chondrocalcinosis Anxiety disorder Steatosis of liver Cataract Hypomagnesemia Chronic kidney disease, stage 3b Atrial fibrillation Coronary atherosclerosis High serum ferritin On anticoagulant therapy Acute low back pain Diabetes HTN (hypertension) Hypercholesterolemia CAD (coronary artery disease) Gout Surgical History Surgical History Fx tibia/fibula shaft-op S/P CABG (coronary artery bypass graft) (~2004) S/P hernia repair incarcerated ventral hernia with small bowel resection (02/21/18) Tobacco Smoking/Tobacco Use Status: Never Passive smoking exposure: No Alcohol Alcohol Intake: current Alcohol intake frequency: a few times a week Alcohol type: beer Substance Use Substance use: Never Substance use type: does not use Vital Signs and Lab Results Vital Signs Most Recent Vital Signs in EMR: Most Recent Vital Signs Temp Pulse Resp BP Pulse Ox 36.5 C 124 H 22 139/93 H 98 06/18/25 09:47 06/18/25 09:47 06/18/25 09:47 06/18/25 09:47 06/18/25 09:47 Point of Care Results Point of Care Results: Finger Stick Blood Glucose 172 06/18/25 09:56 Anesthesia Assessment and Plan Anesthesia History Personal History: No History of Anesthesia Complications Family History: No Family History of Anesthesia Complications Exercise Tolerance Exercise Tolerance: Metabolic Equivalents>4 Pertinent Negatives Pertinent Negatives: No Symptoms of GERD Cardiac & Pulmonary Exam Cardiac Exam: Normal S1/S2 Heart Sounds Pulmonary Exam: Clear Bilateral Breath Sounds Implantable Cardiac Device Does patient have a Pacemaker or an ICD?: No Airway Exam Known Difficult Airway: No Mallampati Class: 1 Mouth Opening: Normal (> 3cm) Thyromental Distance: Greater than 3 cm Neck Range of Motion: Full ROM Neck Circumference: Normal Teeth Condition: Edentulous ASA Classification ASA Score: ASA 3 Emergency Case?: No NPO Status NPO Status: NPO Clears >2 hours, Solids >8 hours Anesthesia Plan Resuscitation Status: Full Code Anesthesia Technique: General Anesthesia Airway Planned: Natural Airway Monitors Used: Standard Monitors
[2025-06-18 10:50] VITALS: BMI 29.5
--- NOTE | 2025-06-18 10:53 | W.PM.DSUDISC ---
Date of service: 06/18/25 Discharge Plan Disposition Patient Disposition: Home Condition: Good Discharge Details Attending Provider: Domingo Silva Primary Care Provider: Kerry Estrada Home Meds and New Rx's Prescriptions: No Action bisacodyl [Dulcolax (bisacodyl)] 5 mg tablet,delayed release (DR/EC) 5 mg PO ONCE Qty: 4 0RF Rx Instructions: take per colonoscopy instructions polyethylene glycol 3350 17 gram/dose powder 238 g PO ONCE Qty: 238 0RF Rx Instructions: take per colonoscopy instructions chlorthalidone 25 MG tablet 25 mg PO DAILY omeprazole 20 mg capsule,delayed release(DR/EC) 20 mg PO DAILY allopurinol 100 mg tablet 300 mg PO DAILY ibuprofen 800 mg tablet 800 mg PO BID PRN indomethacin 50 mg capsule 50 mg PO BID PRN Rx Instructions: administer with food or milk albuterol sulfate 2.5 mg /3 mL (0.083 %) solution for nebulization 2.5 mg inhalation Q6H PRN baclofen 5 mg tablet 5 mg PO TID PRN fenofibrate nanocrystallized 48 mg tablet 48 mg PO DAILY ondansetron 4 mg tablet,disintegrating 4 mg PO Q8H PRN Ozempic 0.25 mg or 0.5 mg (2 mg/3 mL) pen injector 0.25 mg subcut QWEEK Rx Instructions: for 4 weeks gemfibrozil 600 MG tablet 600 mg PO BID metoprolol succinate 100 mg tablet extended release 24 hr 100 mg PO DAILY Eliquis 5 mg tablet 5 mg PO BID rosuvastatin 40 mg tablet 40 mg PO DAILY lisinopril 10 mg tablet 10 mg PO DAILY Discharge Instructions Additional Instructions: FINDINGS: No issues found that would be the cause of your diarrhea. As we discussed, multiple biopsies were taken from the top to the bottom and these might show an answer microscopically. We will call you with biopsy/pathology results in the next 7 to 10 days. Otherwise repeat a colonoscopy in 10 years. Stand Alone Forms: Anesthesia Discharge Inst., DSU Post EGD Instructions, Colonoscopy Post Instructions, Adonay Oleary (DSU) Activity:: Activity as Tolerated Diet:: As Tolerated Discharge Orders Discharge Orders: Discharge Order (Routine); Ordered 06/18/25 Ordered By: Domingo Sliva DS: Diagnosis Discharge Diagnosis (1) Chronic diarrhea: Status: Acute
--- NOTE | 2025-06-18 11:09 | BOWEL_PTH ---
PATIENT: Jas Alex LOC: [facility] U#:[id number] AGE/SX: 65/M ROOM: RE06/18/[address]: Domingo Silva : 1960 BED: DIS: 06/18/2025 SPEC #: [id number] RECD: 06/18/25 13:00 STATUS: RENEE CHARLES #: [id number] WILLIAM: 06/18/25 11:[address]: Domingo Silva DEPT: Surgical Specimen RECD BY: Ewa Esquivel ENTERED: 06/18/25 13:02 SP TYPE: Bowel OTHR DR: Kerry Estrada Tissues: 1 - BIOPSY BOWEL 2 - STOMACH BIOPSY 3 - STOMACH BIOPSY 4 - BIOPSY BOWEL 5 - BIOPSY BOWEL Procedures: GROSS AND MICRO LEVEL 4 IMMUNOPEROXIDASE STAIN Comments: [id number]
[2025-06-18 11:35] VITALS: BP 110/82; PULSE 118; RESP 16; TEMP 36.6; O2SAT 96
--- NOTE | 2025-06-18 11:45 | W.ANESPOSTOP ---
Postoperative Evaluation Date, Time and Location Date Performed: 06/18/25 Time Performed: 11:45 Patient Location: Day [facility] Unit Vital Signs Most Recent Imported Vital Signs: Most Recent Vital Signs Temp Pulse Resp BP Pulse Ox 36.6 C 118 H 16 110/82 96 06/18/25 11:35 06/18/25 11:35 06/18/25 11:35 06/18/25 11:35 06/18/25 11:35 Pain Score Most Recent Pain Score: Most Recent Pain Score Pain Level 0 06/18/25 11:35 Assessment Mental Status: Awake (Alert & Oriented to Patient Baseline) Airway and Respiratory Function: Patent airway with normal (patient baseline) respiratory exam Cardiovascular Function: Hemodynamically Stable Hydration Status: Adequately Hydrated Nausea & Vomiting: No Nausea or Vomiting Pain: Pt. Denies Any Pain Peripheral Nerve Block: Patient did not receive a nerve block
[2025-06-18 12:09] VITALS: BP 118/85; PULSE 101; RESP 16; TEMP 36.4; O2SAT 98
--- NOTE | 2025-06-18 15:51 | W.PM.ENDDOP ---
Date of service: 06/18/25 Time of Service: 15:51 Endoscopy Report PROCEDURE DESCRIPTION: PROCEDURES PERFORMED: 1. EGD with biopsies PREOPERATIVE DIAGNOSIS: Diarrhea POSTOPERATIVE DIAGNOSIS: Mild gastritis or gastropathy, small type I hiatal hernia (AFS grade 3) SURGEON: Franklin Silva MD INDICATION FOR PROCEDURE: 65-year-old man who has been having chronic diarrhea for quite some time with no obvious explanation. FINDINGS: D2/D3 = normal -multiple biopsies were taken (x 4) to rule out celiac disease D1/bulb = normal - no ulcers or inflammation Pylorus = normal Antrum = mildly injected/inflamed appearance diffusely, no ulcers, cold forceps biopsies were taken to rule out H. pylori Body = mild injected/inflamed appearance diffusely, biopsies taken with cold forceps technique Fundus = normal, no polyps Cardia = normal Hiatus = small type I sliding hiatal hernia - AFS grade 3 disruption Distal esophagus = no visible inflammation, no esophagitis, no Medina's, no stricture. I did not take biopsies here since his symptoms do not indicate it. Mid esophagus = normal Proximal esophagus/hypopharynx/vocal cords = normal SURVEILLANCE-INTERVAL/FOLLOW-UP: Follow-up with PCP and/or GI doctors, no surveillance necessary Specimens: Yes EBL: Minimal COMPLICATIONS: None Procedure in detail: The patient gave written consent and was in agreement with the indications, the potential risks as well as the benefits of the procedure. The patient was taken to the endoscopy suite and laid on their left side. Anesthesia was given which was tolerated well. We performed a timeout and we are in agreement I started the procedure. A well-lubricated endoscope was gently and carefully advanced down the esophagus, into the stomach and through the pylorus into the duodenum. The scope was then slowly withdrawn with the above-noted findings/interventions. The patient tolerated the procedure well and was then turned for colonoscopy (see separate procedure note).
--- NOTE | 2025-06-18 15:54 | COLE_ITS ---
Date of service: 06/18/25 Time of Service: 15:54 Colonoscopy Report Procedure Description: PROCEDURES PERFORMED: 1. Colonoscopy with cold forceps biopsy PREOPERATIVE DIAGNOSIS: Chronic diarrhea POSTOPERATIVE DIAGNOSIS: Normal terminal ileum, normal hindgut SURGEON: Franklin Silva MD INDICATION FOR PROCEDURE: 65-year-old man having chronic diarrhea with no obvious explanation. FINDINGS: Normal terminal ileum. Cold forceps biopsies taken to assess histology and rule out IBD (not suspected) Colon mucosa appears normal everywhere. No visible inflammation. Cold forceps biopsies taken throughout the colon random and non-? targeted to rule out microscopic colitis. Polyps: No polyps were encountered No obvious diverticular disease. No significant hemorrhoid disease. SURVEILLANCE interval/FOLLOW-UP: For symptoms, follow-up with PCP and/or GI. Repeat colonoscopy in 10 years for colorectal cancer screening/surveillance purposes. SPECIMENS: Yes EBL: Minimal COMPLICATIONS: None QUALITY of prep: Excellent Procedure in detail: The patient gave written consent and was in agreement with the indications, the potential risks as well as the benefits of the procedure. They were turned from upper endoscopy (see separate procedure note) and anesthe danie was continued and I started the colonoscopy portion of the procedure. Digital rectal and visual examination was performed and grossly within normal limits. A well-lubricated flexible colonoscope was then introduced and passed without any notable difficulty all the way to the cecum identified by the ileocecal valve and the appendiceal orifice. The terminal ileum was deeply intubated and looked normal. The scope was then slowly withdrawn with the above-noted findings. The patient tolerated the procedure well and was taken to the PACU in hemodynamically stable condition.
== END 2025-06-18 12:14 | disposition home or self-care (01) ==
LOC: SUR 09:41
PROVIDERS: PCP Nurse Practitioner Family; Visit Provider Student in an Organized Health Care Education/Training Program
PROC: (CPT 43239; principal; 2025-06-18 11:15)
DX: K52.9 Noninfective gastroenteritis and colitis, unspecified (principal); K29.50 Unspecified chronic gastritis without bleeding; K31.9 Disease of stomach and duodenum, unspecified; K44.9 Diaphragmatic hernia without obstruction or gangrene
CPT/HCPCS: 43239; 45380; 88305; 88361; J2003; J2704